=== PATIENT | female | born 1945 | race Caucasian/White ===

== ENCOUNTER → 2017-06-29 14:36 | Outpatient (CLI) | payer MEDICARE, OTHER, SELFPAY ==
[2017-06-29 15:37] LABS: Absolute Lymphocyte Count 2.58 X10^3/ul (0.83-4.51); Absolute Neutrophil Count 2.6 X10^3/uL (2.0-7.7); Basophil# 0.05 X10^3/uL; Basophil% 0.9 % (0-1); Eosinophil# 0.13 X10^3/uL; Eosinophils% 2.2 % (0-5); Hematocrit 41.5 % (37-47); Hemoglobin 13.7 g/dl (12.0-15.0); Lymphocyte # 2.58 X10^3/ul (4.0); Lymphocyte % 44.4 % (19-41); Mean Corpuscular Hgb 30.2 pg (27.0-32.0); Mean Corpuscular Volume 91.4 fL (81-99); Mean Platelet Vol. 11.2 fl (6.2-12.0); Monocyte# 0.49 X10^3/uL; Monocyte% 8.4 % (0-10); Neutrophil # 2.56 X10^3/uL (2.7-7.7); Neutrophil % 44.1 % (47-70); Platelet Count 123 K/mm3 (150-450); RBC Distribution Width CV 14.6 % (11.6-14.6); RBC Distribution Width SD 48.8 fl (35.1-43.9); Red Blood Count 4.54 M/mm3 (4.2-5.4); White Blood Count 5.8 K/mm3 (4.4-11.0)
[2017-06-29 15:43] LABS: POSITIVE COUNT NO; POSITIVE DIFFERENTIAL NO; POSITIVE MORPHOLOGY NO
[2017-06-29 16:07] LABS: Anion Gap 9 (5-15); BUN 11 mg/dL (7-18); BUN/Creat Ratio 15.3 RATIO (10-20); Calcium,Total 8.8 mg/dL (8.5-10.1); Chloride 104 mmol/L (98-107); Creatinine, Serum 0.72 mg/dL (0.55-1.02); EST Glomerular Filtration Rate 85 mL/min (>60); Est Glom Filt Rate - Afr Amer 103 mL/min (>60); Glucose 162 mg/dL (74-106); Potassium 3.6 mmol/L (3.5-5.1); Sodium Level 139 mmol/L (136-145)
== END ==
PROVIDERS: Family Provider Family Medicine; PCP Family Medicine; Visit Provider Family Medicine
DX: D69.6 Thrombocytopenia, unspecified (principal); E11.9 Type 2 diabetes mellitus without complications
CPT/HCPCS: 36415; 80048; 85025

== ENCOUNTER → 2018-05-04 06:38 | Outpatient (CLI) | payer MEDICARE, OTHER, SELFPAY ==
[2017-12-05 13:58] VITALS: BMI 34.4
[2018-05-04 08:03] LABS: ALB/GLOB Ratio 0.8 RATIO (0.9-2.4); AST(SGOT) 66 U/L (15-37); Alanine Aminotransfer ALT/SGPT 60 U/L (13-56); Albumin, Serum 3.1 g/dL (3.2-5.0); Alkaline Phosphatase 175 U/L (45-117); Anion Gap 5 (5-15); BUN 9 mg/dL (7-18); BUN/Creat Ratio 14.7 RATIO (10-20); Bilirubin, Direct 0.23 mg/dL (0.00-0.30); Calcium,Total 8.6 mg/dL (8.5-10.1); Chloride 108 mmol/L (98-107); Cholesterol 146 mg/dL (200); Creatinine, Serum 0.61 mg/dL (0.55-1.02); EST Glomerular Filtration Rate 102 mL/min (>60); Est Glom Filt Rate - Afr Amer 124 mL/min (>60); Globulin 4.1 g/dL (2.2-4.2); Glucose 119 mg/dL (74-106); High Density Lipoprotein 40 mg/dL; Potassium 3.9 mmol/L (3.5-5.1); Protein, Total 7.2 g/dL (6.4-8.2); Sodium Level 142 mmol/L (136-145); T4 Free Direct 0.89 ng/dL (0.76-1.46); Thyroid Stim Hormone (TSH) 3.68 uIU/mL (0.358-3.74); Triglycerides 108 mg/dL; Very Low Density Lipoprotein 22 mg/dL (5-40)
[2018-05-04 08:07] LABS: Absolute Lymphocyte Count 2.21 X10^3/ul (0.83-4.51); Absolute Neutrophil Count 1.8 X10^3/uL (2.0-7.7); Basophil# 0.04 X10^3/uL; Basophil% 0.9 % (0-1); Eosinophil# 0.14 X10^3/uL; Eosinophils% 3.1 % (0-5); Hematocrit 43.9 % (37-47); Hemoglobin 13.9 g/dl (12.0-15.0); Lymphocyte # 2.21 X10^3/ul (4.0); Lymphocyte % 48.3 % (19-41); Mean Corp Hgb Conc 31.7 g/gl (32-36); Mean Corpuscular Hgb 29.6 pg (27.0-32.0); Mean Corpuscular Volume 93.6 fL (81-99); Mean Platelet Vol. 11.9 fl (6.2-12.0); Monocyte# 0.43 X10^3/uL; Monocyte% 9.4 % (0-10); Neutrophil # 1.75 X10^3/uL (2.7-7.7); Neutrophil % 38.1 % (47-70); Platelet Count 94 K/mm3 (150-450); RBC Distribution Width CV 14.6 % (11.6-14.6); RBC Distribution Width SD 48.2 fl (35.1-43.9); Red Blood Count 4.69 M/mm3 (4.2-5.4); White Blood Count 4.6 K/mm3 (4.4-11.0)
[2018-05-04 08:10] LABS: POSITIVE COUNT NO; POSITIVE DIFFERENTIAL NO; POSITIVE MORPHOLOGY NO
== END ==
PROVIDERS: Family Provider Family Medicine; PCP Family Medicine; Referring Provider Internal Medicine Cardiovascular Disease; Visit Provider Internal Medicine Cardiovascular Disease
DX: E78.5 Hyperlipidemia, unspecified (principal); E11.9 Type 2 diabetes mellitus without complications; K76.0 Fatty (change of) liver, not elsewhere classified; D69.6 Thrombocytopenia, unspecified; I48.91 Unspecified atrial fibrillation
CPT/HCPCS: 36415; 80053; 80061; 82248; 84439; 84443; 85025

== ENCOUNTER → 2018-12-04 13:41 | Outpatient (CLI) | payer MEDICARE, OTHER, SELFPAY ==
[2017-12-05 13:58] VITALS: BMI 34.4
[2018-12-04 15:04] LABS: Absolute Lymphocyte Count 2.51 X10^3/uL (0.83-4.51); Absolute Neutrophil Count 2.9 X10^3/uL (2.0-7.7); Basophil# 0.06 X10^3/uL; Basophil% 0.9 % (0-1); Eosinophil# 0.14 X10^3/uL; Eosinophils% 2.2 % (0-5); Hematocrit 40.2 % (37-47); Hemoglobin 12.8 g/dL (12.0-15.0); Lymphocyte # 2.51 X10^3/ul (4.0); Lymphocyte % 39.6 % (19-41); Mean Corp Hgb Conc 31.8 g/dL (32-36); Mean Corpuscular Volume 94.4 fL (81-99); Monocyte# 0.71 X10^3/uL; Monocyte% 11.2 % (0-10); NRBC Flagged by Analyzer 0 % (0-5); Neutrophil % 45.8 % (47-70); Platelet Count 111 K/mm3 (150-450); RBC Distribution Width SD 51.9 fl (35.1-43.9); Red Blood Count 4.26 M/mm3 (4.2-5.4); White Blood Count 6.3 K/mm3 (4.4-11.0)
[2018-12-04 15:36] LABS: ALB/GLOB Ratio 0.8 RATIO (0.9-2.4); AST(SGOT) 50 U/L (15-37); Alanine Aminotransfer ALT/SGPT 41 U/L (13-56); Albumin, Serum 2.9 g/dL (3.2-5.0); Alkaline Phosphatase 160 U/L (45-117); Anion Gap 10 (5-15); BUN 12 mg/dL (7-18); BUN/Creat Ratio 17.2 RATIO (10-20); Calcium,Total 8.4 mg/dL (8.5-10.1); Chloride 110 mmol/L (98-107); EST Glomerular Filtration Rate 88 mL/min (>60); Est Glom Filt Rate - Afr Amer 106 mL/min (>60); GGTP 91 U/L (5-55); Globulin 3.7 g/dL (2.2-4.2); Glucose 114 mg/dL (74-106); Magnesium 1.8 mg/dL (1.6-2.6); Potassium 3.8 mmol/L (3.5-5.1); Protein, Total 6.6 g/dL (6.4-8.2); Sodium Level 144 mmol/L (136-145); Thyroid Stim Hormone (TSH) 1.24 uIU/mL (0.358-3.74)
== END ==
PROVIDERS: PCP Family Medicine; Visit Provider Family Medicine
DX: K76.0 Fatty (change of) liver, not elsewhere classified (principal); I48.91 Unspecified atrial fibrillation; D69.6 Thrombocytopenia, unspecified; E11.9 Type 2 diabetes mellitus without complications
CPT/HCPCS: 36415; 80053; 82977; 83735; 84443; 85025

== ENCOUNTER → 2019-02-15 08:33 | Outpatient (CLI) | payer MEDICARE, OTHER, SELFPAY ==
[2019-01-05 11:29] VITALS: BMI 34.0
[2019-02-15 12:43] LABS: Absolute Neutrophil Count 2.6 X10^3/uL (2.0-7.7); Basophil# 0.03 X10^3/uL; Basophil% 0.7 % (0-1); Eosinophil# 0.12 X10^3/uL; Eosinophils% 2.7 % (0-5); Hematocrit 40.3 % (37-47); Lymphocyte % 26.6 % (19-41); Mean Corp Hgb Conc 32.3 g/dL (32-36); Mean Corpuscular Volume 93.1 fL (81-99); Mean Platelet Vol. 12.7 fl (6.2-12.0); Monocyte# 0.57 X10^3/uL; Monocyte% 12.6 % (0-10); NRBC Flagged by Analyzer 0 % (0-5); Neutrophil # 2.58 X10^3/uL (2.7-7.7); Neutrophil % 57.2 % (47-70); Platelet Count 124 K/mm3 (150-450); RBC Distribution Width CV 15.2 % (11.6-14.6); RBC Distribution Width SD 52.6 fl (35.1-43.9); Red Blood Count 4.33 M/mm3 (4.2-5.4); White Blood Count 4.5 K/mm3 (4.4-11.0)
[2019-02-15 13:05] LABS: BNP,B-Type NATRIURETIC PEPTIDE 91.9 pg/mL (0-100)
[2019-02-15 13:13] LABS: ALB/GLOB Ratio 0.7 RATIO (0.9-2.4); AST(SGOT) 45 U/L (15-37); Alanine Aminotransfer ALT/SGPT 30 U/L (13-56); Albumin, Serum 2.9 g/dL (3.2-5.0); Alkaline Phosphatase 140 U/L (45-117); Anion Gap 6 (5-15); BUN 7 mg/dL (7-18); BUN/Creat Ratio 11.2 RATIO (10-20); Calcium,Total 8.5 mg/dL (8.5-10.1); Chloride 108 mmol/L (98-107); Creatinine, Serum 0.62 mg/dL (0.55-1.02); EST Glomerular Filtration Rate 100 mL/min (>60); Est Glom Filt Rate - Afr Amer 121 mL/min (>60); Globulin 3.9 g/dL (2.2-4.2); Glucose 98 mg/dL (74-106); Potassium 3.6 mmol/L (3.5-5.1); Protein, Total 6.8 g/dL (6.4-8.2); Sodium Level 142 mmol/L (136-145); Thyroid Stim Hormone (TSH) 2.03 uIU/mL (0.358-3.74)
== END ==
PROVIDERS: PCP Family Medicine; Visit Provider Family Medicine
DX: I50.9 Heart failure, unspecified (principal); D69.6 Thrombocytopenia, unspecified
CPT/HCPCS: 36415; 80053; 83880; 84443; 85025

== ENCOUNTER → 2019-03-09 11:44 | Outpatient (CLI) | payer MEDICARE, SELFPAY ==
[2019-01-05 11:29] VITALS: BMI 34.0
[2019-03-09 16:21] LABS: ALB/GLOB Ratio 0.6 RATIO (0.9-2.4); AST(SGOT) 53 U/L (15-37); Alanine Aminotransfer ALT/SGPT 33 U/L (13-56); Albumin, Serum 2.6 g/dL (3.2-5.0); Alkaline Phosphatase 159 U/L (45-117); Anion Gap 2 (5-15); BUN 8 mg/dL (7-18); BUN/Creat Ratio 11.7 RATIO (10-20); Calcium,Total 8.7 mg/dL (8.5-10.1); Chloride 109 mmol/L (98-107); Creatinine, Serum 0.68 mg/dL (0.55-1.02); EST Glomerular Filtration Rate 90 mL/min (>60); Est Glom Filt Rate - Afr Amer 109 mL/min (>60); Globulin 4.2 g/dL (2.2-4.2); Glucose 138 mg/dL (74-106); Potassium 3.3 mmol/L (3.5-5.1); Protein, Total 6.8 g/dL (6.4-8.2); Sodium Level 139 mmol/L (136-145)
== END ==
PROVIDERS: Family Provider Family Medicine; PCP Family Medicine; Visit Provider Family Medicine
DX: R17 Unspecified jaundice (principal)
CPT/HCPCS: 36415; 80053

== ENCOUNTER → 2019-04-03 15:18 | Outpatient (CLI) | payer MEDICARE, SELFPAY ==
[2019-01-05 11:29] VITALS: BMI 34.0
[2019-04-03 17:16] LABS: Absolute Lymphocyte Count 1.28 X10^3/uL (0.83-4.51); Absolute Neutrophil Count 2.3 X10^3/uL (2.0-7.7); Basophil# 0.03 X10^3/uL; Basophil% 0.7 % (0-1); Eosinophils% 2.4 % (0-5); Hematocrit 39.5 % (37-47); Hemoglobin 12.7 g/dL (12.0-15.0); Lymphocyte # 1.28 X10^3/ul (4.0); Lymphocyte % 30.8 % (19-41); Mean Corp Hgb Conc 32.2 g/dL (32-36); Mean Corpuscular Hgb 30.2 pg (27.0-32.0); Mean Corpuscular Volume 93.8 fL (81-99); Monocyte% 9.6 % (0-10); NRBC Flagged by Analyzer 0 % (0-5); Neutrophil # 2.33 X10^3/uL (2.7-7.7); Neutrophil % 56.3 % (47-70); Platelet Count 119 K/mm3 (150-450); RBC Distribution Width CV 15.9 % (11.6-14.6); RBC Distribution Width SD 54.3 fl (35.1-43.9); Red Blood Count 4.21 M/mm3 (4.2-5.4); White Blood Count 4.2 K/mm3 (4.4-11.0)
[2019-04-03 17:47] LABS: ALB/GLOB Ratio 0.6 RATIO (0.9-2.4); AST(SGOT) 56 U/L (15-37); Alanine Aminotransfer ALT/SGPT 33 U/L (13-56); Albumin, Serum 2.4 g/dL (3.2-5.0); Alkaline Phosphatase 148 U/L (45-117); Anion Gap 5 (5-15); BUN 6 mg/dL (7-18); BUN/Creat Ratio 10.1 RATIO (10-20); Bilirubin, Direct 0.37 mg/dL (0.00-0.30); Calcium,Total 8.6 mg/dL (8.5-10.1); Chloride 108 mmol/L (98-107); EST Glomerular Filtration Rate 105 mL/min (>60); Est Glom Filt Rate - Afr Amer 127 mL/min (>60); Globulin 4.3 g/dL (2.2-4.2); Glucose 133 mg/dL (74-106); Potassium 3.2 mmol/L (3.5-5.1); Protein, Total 6.7 g/dL (6.4-8.2); Sodium Level 141 mmol/L (136-145)
[2019-04-04 10:56] LABS: Hemoglobin A1c 5.3 % (4.2-6.3)
== END ==
PROVIDERS: Family Provider Family Medicine; PCP Family Medicine; Visit Provider Family Medicine
DX: E11.9 Type 2 diabetes mellitus without complications (principal); E87.6 Hypokalemia; R17 Unspecified jaundice
CPT/HCPCS: 36415; 80053; 82248; 83036; 85025

== ENCOUNTER → 2019-04-12 13:26 | Outpatient (CLI) | payer MEDICARE, SELFPAY ==
[2019-01-05 11:29] VITALS: BMI 34.0
[2019-04-12 15:42] LABS: Absolute Lymphocyte Count 1.48 X10^3/uL (0.83-4.51); Absolute Neutrophil Count 2.6 X10^3/uL (2.0-7.7); Basophil# 0.05 X10^3/uL; Eosinophil# 0.12 X10^3/uL; Eosinophils% 2.5 % (0-5); Hemoglobin 13.1 g/dL (12.0-15.0); Lymphocyte # 1.48 X10^3/ul (4.0); Lymphocyte % 30.7 % (19-41); Mean Corpuscular Hgb 30.1 pg (27.0-32.0); Mean Corpuscular Volume 94.3 fL (81-99); Mean Platelet Vol. 11.6 fl (6.2-12.0); Monocyte# 0.58 X10^3/uL; NRBC Flagged by Analyzer 0 % (0-5); Neutrophil # 2.59 X10^3/uL (2.7-7.7); Neutrophil % 53.8 % (47-70); Platelet Count 142 K/mm3 (150-450); RBC Distribution Width CV 15.9 % (11.6-14.6); RBC Distribution Width SD 54.6 fl (35.1-43.9); Red Blood Count 4.35 M/mm3 (4.2-5.4); White Blood Count 4.8 K/mm3 (4.4-11.0)
[2019-04-12 16:03] LABS: ALB/GLOB Ratio 0.6 RATIO (0.9-2.4); AST(SGOT) 54 U/L (15-37); Alanine Aminotransfer ALT/SGPT 32 U/L (13-56); Albumin, Serum 2.5 g/dL (3.2-5.0); Alkaline Phosphatase 163 U/L (45-117); Anion Gap 4 (5-15); BUN 6 mg/dL (7-18); BUN/Creat Ratio 9.7 RATIO (10-20); Calcium,Total 8.3 mg/dL (8.5-10.1); Chloride 107 mmol/L (98-107); Creatinine, Serum 0.62 mg/dL (0.55-1.02); EST Glomerular Filtration Rate 101 mL/min (>60); Est Glom Filt Rate - Afr Amer 122 mL/min (>60); Globulin 4.3 g/dL (2.2-4.2); Glucose 93 mg/dL (74-106); Magnesium 1.7 mg/dL (1.6-2.6); Protein, Total 6.8 g/dL (6.4-8.2); Sodium Level 140 mmol/L (136-145); Thyroid Stim Hormone (TSH) 1.41 uIU/mL (0.358-3.74)
[2019-04-12 16:35] LABS: BNP,B-Type NATRIURETIC PEPTIDE 101.3 pg/mL (0-100)
== END ==
PROVIDERS: PCP Family Medicine; Visit Provider Family Medicine
DX: I48.91 Unspecified atrial fibrillation (principal); I50.810 Right heart failure, unspecified; R60.9 Edema, unspecified; D69.6 Thrombocytopenia, unspecified
CPT/HCPCS: 36415; 80053; 83735; 83880; 84443; 85025

== ENCOUNTER → 2019-04-27 08:38 | Outpatient (CLI) | payer MEDICARE, SELFPAY ==
[2019-01-05 11:29] VITALS: BMI 34.0
--- NOTE | 2019-04-27 08:41 | ECHOD_ITS ---
Reason For Study: EDEMA, MURMUR Procedure This was a 2D Doppler, Color Flow transthoracic echocardiogram. Exam performed in department. Left Ventricle Normal LV size. Mild segmental systolic dysfunction (see wall motion). The estimated ejection fraction is 40 %. Septal motion consistent with IVCD. Diastolic function is indeterminate. Posterior-Basal: Hypokinetic. Infero-Basal: Hypokinetic. Basal inferoseptal: Hypokinetic. Basal anteroseptal: Hypokinetic. Mid-Anterior : Hypokinetic. Mid-Posterior: Hypokinetic. Mid-Inferior: Hypokinetic. Mid-inferoseptal : Hypokinetic. Mid-anteroseptal : Hypokinetic. [place] : Hypokinetic. Right Ventricle Normal RV size. Normal systolic function. Atria The left atrium is mildly enlarged. Normal right atrium. No doppler evidence for ASD. Mitral Valve There is no mitral annular calcification. Normal mitral valve. Mild (1+) mitral valve insufficiency. Tricuspid Valve Normal tricuspid valve. Mild tricuspid valve insufficiency. Right ventricular systolic pressure estimated to be 27 mmHg. Aortic Valve Trisinus/trileaflet aortic valve. Mild focal aortic valve calcification. Pulmonic Valve The pulmonic valve is not well visualized. Trivial pulmonic valve insufficiency. Great Vessels Normal sized aortic root. Pericardium/Pleural No pericardial effusion. Echo lucency compatible with a pleural effusion. MMode/2D Measurements & Calculations LVIDd: 4.1 cm IVSd: 1.0 cm Ao root diam: 3.5 cm LVIDs: 2.7 cm LVPWd: 0.98 cm RVDd: 3.4 cm FS: 34.1 % LAV(MOD-bp): 64.4 ml LVAd ap4: 38.0 cm2 SV(MOD-sp4): 64.3 ml LAV(MOD-bp) Indexed: 34.1 ml/m2 EDV(MOD-sp4): 124.9 ml LAV(MOD-sp2): 57.6 ml EDV(sp4-el): 135.2 ml LAV(MOD-sp4): 63.5 ml LVAs ap4: 23.3 cm2 ESV(MOD-sp4): 60.6 ml ESV(sp4-el): 60.9 ml EF(MOD-sp4): 51.5 % EF(sp4-el): 55.0 % SV(sp4-el): 74.3 ml LA A4 area: 21.5 cm2 LA dimension(2D): 4.9 cm RA A4 area: 16.2 cm2 Time Measurements MV dec time: 0.17 sec Doppler Measurements & Calculations MV E max glen: 52.4 cm/sec Lat Peak E' Glen: 7.9 cm/sec Med Peak E' Glen: 5.6 cm/sec MV A max glen: 69.9 cm/sec E/E' lat: 6.6 E/E' med: 9.4 MV E/A: 0.75 Ao V2 max: 167.7 cm/sec LV V1 max: 127.0 cm/sec PA V2 max: 90.8 cm/sec Ao max P.3 mmHg LV V1 max P.5 mmHg TR max glen: 242.1 cm/sec TR max P.5 mmHg Interpretation Summary Mild segmental systolic dysfunction (see wall motion). The estimated ejection fraction is 40 %. Septal motion consistent with IVCD. The left atrium is mildly enlarged. Mild (1+) mitral valve insufficiency. Mild tricuspid valve insufficiency. Mild focal aortic valve calcification. Trivial pulmonic valve insufficiency. Echo lucency compatible with a pleural effusion. Right ventricular systolic pressure estimated to be 27 mmHg. Diastolic function is indeterminate. Ordering Physician: Po Maldonado Referring Physician: Po Maldonado Performed By: Roxy Calvert, CHRISTINE, RVT
== END ==
PROVIDERS: PCP Family Medicine; Referring Provider Family Medicine; Visit Provider Family Medicine
DX: R01.1 Cardiac murmur, unspecified (principal); I48.91 Unspecified atrial fibrillation; I50.9 Heart failure, unspecified
CPT/HCPCS: 93306

== ENCOUNTER → 2019-04-30 14:37 | Outpatient (CLI) | payer MEDICARE, SELFPAY ==
[2019-01-05 11:29] VITALS: BMI 34.0
[2019-04-30 17:23] LABS: Absolute Lymphocyte Count 1.56 X10^3/uL (0.83-4.51); Absolute Neutrophil Count 2.9 X10^3/uL (2.0-7.7); Basophil# 0.04 X10^3/uL; Basophil% 0.8 % (0-1); Eosinophil# 0.14 X10^3/uL; Eosinophils% 2.7 % (0-5); Hematocrit 42.2 % (37-47); Hemoglobin 13.4 g/dL (12.0-15.0); Lymphocyte # 1.56 X10^3/ul (4.0); Lymphocyte % 30.3 % (19-41); Mean Corp Hgb Conc 31.8 g/dL (32-36); Mean Corpuscular Hgb 29.8 pg (27.0-32.0); Mean Corpuscular Volume 93.8 fL (81-99); Mean Platelet Vol. 11.7 fl (6.2-12.0); Monocyte# 0.47 X10^3/uL; Monocyte% 9.1 % (0-10); NRBC Flagged by Analyzer 0 % (0-5); Neutrophil # 2.93 X10^3/uL (2.7-7.7); Neutrophil % 56.9 % (47-70); Platelet Count 162 K/mm3 (150-450); RBC Distribution Width CV 15.9 % (11.6-14.6); RBC Distribution Width SD 55.1 fl (35.1-43.9); White Blood Count 5.2 K/mm3 (4.4-11.0)
[2019-04-30 17:35] LABS: ALB/GLOB Ratio 0.5 RATIO (0.9-2.4); AST(SGOT) 100 U/L (15-37); Alanine Aminotransfer ALT/SGPT 61 U/L (13-56); Albumin, Serum 2.5 g/dL (3.2-5.0); Alkaline Phosphatase 268 U/L (45-117); Anion Gap 4 (5-15); BUN 6 mg/dL (7-18); BUN/Creat Ratio 9.1 RATIO (10-20); Calcium,Total 8.6 mg/dL (8.5-10.1); Chloride 105 mmol/L (98-107); Creatinine, Serum 0.66 mg/dL (0.55-1.02); EST Glomerular Filtration Rate 94 mL/min (>60); Est Glom Filt Rate - Afr Amer 113 mL/min (>60); Globulin 4.8 g/dL (2.2-4.2); Glucose 89 mg/dL (74-106); Potassium 3.1 mmol/L (3.5-5.1); Protein, Total 7.3 g/dL (6.4-8.2); Sodium Level 140 mmol/L (136-145)
== END ==
PROVIDERS: PCP Family Medicine; Visit Provider Family Medicine
DX: I50.810 Right heart failure, unspecified (principal); D69.6 Thrombocytopenia, unspecified; K76.0 Fatty (change of) liver, not elsewhere classified
CPT/HCPCS: 36415; 80053; 85025

== ENCOUNTER → 2019-07-17 09:10 | Outpatient (CLI) | payer MEDICARE, SELFPAY ==
[2019-01-05 11:29] VITALS: BMI 34.0
[2019-07-17 12:48] LABS: ALB/GLOB Ratio 0.5 RATIO (0.9-2.4); AST(SGOT) 60 U/L (15-37); Alanine Aminotransfer ALT/SGPT 31 U/L (13-56); Albumin, Serum 2.1 g/dL (3.2-5.0); Alkaline Phosphatase 146 U/L (45-117); Anion Gap 7 (5-15); BUN 8 mg/dL (7-18); BUN/Creat Ratio 11.1 RATIO (10-20); Calcium,Total 8.3 mg/dL (8.5-10.1); Chloride 107 mmol/L (98-107); Creatinine, Serum 0.72 mg/dL (0.55-1.02); EST Glomerular Filtration Rate 85 mL/min (>60); Est Glom Filt Rate - Afr Amer 102 mL/min (>60); Globulin 4.2 g/dL (2.2-4.2); Glucose 88 mg/dL (74-106); Potassium 3.2 mmol/L (3.5-5.1); Protein, Total 6.3 g/dL (6.4-8.2); Sodium Level 142 mmol/L (136-145)
[2019-07-17 12:53] LABS: BNP,B-Type NATRIURETIC PEPTIDE 190.1 pg/mL (0-100)
== END ==
PROVIDERS: PCP Family Medicine; Visit Provider Family Medicine
DX: I50.9 Heart failure, unspecified (principal); E87.6 Hypokalemia; J90 Pleural effusion, not elsewhere classified
CPT/HCPCS: 36415; 80053; 83880

== ENCOUNTER → 2019-08-08 08:33 | Outpatient (CLI) | payer MEDICARE, SELFPAY ==
[2019-07-18 13:38] VITALS: BMI 34.0
[2019-08-08 12:32] LABS: Absolute Lymphocyte Count 1.21 X10^3/uL (0.83-4.51); Absolute Neutrophil Count 1.5 X10^3/uL (2.0-7.7); Basophil# 0.04 X10^3/uL; Basophil% 1.2 % (0-1); Eosinophil# 0.09 X10^3/uL; Eosinophils% 2.8 % (0-5); Hematocrit 40.5 % (37-47); Lymphocyte # 1.21 X10^3/ul (4.0); Lymphocyte % 37.7 % (19-41); Mean Corp Hgb Conc 32.1 g/dL (32-36); Mean Corpuscular Hgb 31.2 pg (27.0-32.0); Mean Corpuscular Volume 97.1 fL (81-99); Mean Platelet Vol. 12.5 fl (6.2-12.0); Monocyte# 0.32 X10^3/uL; NRBC Flagged by Analyzer 0 % (0-5); Neutrophil # 1.54 X10^3/uL (2.7-7.7); Platelet Count 101 K/mm3 (150-450); RBC Distribution Width CV 15.1 % (11.6-14.6); RBC Distribution Width SD 54.1 fl (35.1-43.9); Red Blood Count 4.17 M/mm3 (4.2-5.4); White Blood Count 3.2 K/mm3 (4.4-11.0)
[2019-08-08 12:52] LABS: Anion Gap 6 (5-15); BUN 9 mg/dL (7-18); BUN/Creat Ratio 13.4 RATIO (10-20); Calcium,Total 8.5 mg/dL (8.5-10.1); Chloride 108 mmol/L (98-107); Creatinine, Serum 0.67 mg/dL (0.55-1.02); EST Glomerular Filtration Rate 91 mL/min (>60); Est Glom Filt Rate - Afr Amer 111 mL/min (>60); Glucose 82 mg/dL (74-106); Magnesium 2.1 mg/dL (1.6-2.6); Potassium 3.5 mmol/L (3.5-5.1); Sodium Level 141 mmol/L (136-145)
[2019-08-08 13:01] LABS: BNP,B-Type NATRIURETIC PEPTIDE 106.4 pg/mL (0-100)
== END ==
PROVIDERS: PCP Family Medicine; Visit Provider Family Medicine
DX: E87.6 Hypokalemia (principal); I50.9 Heart failure, unspecified; E11.9 Type 2 diabetes mellitus without complications
CPT/HCPCS: 36415; 80048; 83036; 83735; 83880; 85025

== ENCOUNTER → 2020-01-09 10:36 | Outpatient (CLI) | payer MEDICARE, SELFPAY ==
[2019-07-18 13:38] VITALS: BMI 34.0
[2020-01-09 12:14] LABS: Absolute Neutrophil Count 2.3 X10^3/uL (2.0-7.7); Basophil# 0.04 X10^3/uL; Eosinophil# 0.09 X10^3/uL; Eosinophils% 2.3 % (0-5); Hematocrit 33.8 % (37-47); Lymphocyte % 28.4 % (19-41); Mean Corp Hgb Conc 32.5 g/dL (32-36); Mean Corpuscular Volume 98.3 fL (81-99); Mean Platelet Vol. 11.9 fl (6.2-12.0); Monocyte# 0.35 X10^3/uL; NRBC Flagged by Analyzer 0 % (0-5); Neutrophil # 2.29 X10^3/uL (2.7-7.7); Platelet Count 111 K/mm3 (150-450); RBC Distribution Width CV 15.1 % (11.6-14.6); RBC Distribution Width SD 54.6 fl (35.1-43.9); Red Blood Count 3.44 M/mm3 (4.2-5.4); White Blood Count 3.9 K/mm3 (4.4-11.0)
[2020-01-09 12:34] LABS: International Normalized Ratio 2.6; Prothrombin Time (Protime)PT. 27.6 SECONDS (11.7-14.9)
[2020-01-09 12:35] LABS: Partial Thromboplast Time 37.9 Seconds (24.1-36.2)
[2020-01-09 13:10] LABS: ALB/GLOB Ratio 0.5 RATIO (0.9-2.4); AST(SGOT) 50 U/L (15-37); Alanine Aminotransfer ALT/SGPT 24 U/L (13-56); Alkaline Phosphatase 123 U/L (45-117); Anion Gap 8 (5-15); BUN 24 mg/dL (7-18); BUN/Creat Ratio 16.9 RATIO (10-20); Calcium,Total 8.5 mg/dL (8.5-10.1); Chloride 106 mmol/L (98-107); Creatinine, Serum 1.42 mg/dL (0.55-1.02); EST Glomerular Filtration Rate 39 mL/min (>60); Est Glom Filt Rate - Afr Amer 47 mL/min (>60); Glucose 147 mg/dL (74-106); Potassium 3.3 mmol/L (3.5-5.1); Sodium Level 140 mmol/L (136-145)
[2020-01-09 14:44] LABS: BNP,B-Type NATRIURETIC PEPTIDE 188.5 pg/mL (0-100)
== END ==
PROVIDERS: PCP Family Medicine; Visit Provider Family Medicine
DX: K74.60 Unspecified cirrhosis of liver (principal); K76.0 Fatty (change of) liver, not elsewhere classified; D69.6 Thrombocytopenia, unspecified; I50.9 Heart failure, unspecified
CPT/HCPCS: 36415; 80053; 83880; 85025; 85610; 85730

== ENCOUNTER → 2020-01-17 07:57 | Outpatient (CLI) | payer MEDICARE, SELFPAY ==
[2019-07-18 13:38] VITALS: BMI 34.0
--- NOTE | 2020-01-17 07:59 | US_ITS ---
STUDY: ABDOMINAL ULTRASOUND REASON FOR EXAM: Female, 74 years old. Cirrhosis, jaundice, ascites TECHNIQUE: Transabdominal ultrasound was performed with real-time and static gomez scale imaging. TECHNICAL QUALITY: Limited. Examination limited due to the patient?s condition. COMPARISON: None. FINDINGS: Liver: The liver is of decreased size and measures 9.3 cm. There is increased echogenicity consistent with fatty infiltration. The bile ducts are within normal limits. There is hepatic color flow. The direction of portal flow is hepatopetal. There is no demonstrated mass lesion. Portal vein measurement: Gallbladder: Normal distended gallbladder. The gallbladder wall is thickened and measures 6.2 mm. There is a negative sonographic Molina''s sign. There is no pericholecystic fluid. There is a solitary echogenic gallstone within the gallbladder. And measures 7 mm. Common Bile Duct (C.B.D.): The common bile duct measures 2.8 mm. Pancreas: Normal size of the head, body and tail of the pancreas. There is normal echogenicity of the pancreas. There is no demonstrated pancreatic mass or cyst. Spleen: Normal size of the spleen. The spleen measures 10.6 cm x 5.3 cm x 5.8 cm. Right Kidney: Normal size of the right kidney. The right kidney measures 11.1 cm x 4.7 cm x 4.3 cm. Normal renal cortex. The right cortex measures 1.7 cm. There is no demonstrated renal mass or cyst. There is no right hydronephrosis. Left Kidney: There is atrophy of the left kidney. The left kidney measures 8.7 cm x 4.7 cm x 4.3 cm. Normal renal cortex. The left cortex measures 1.5 cm. There is no demonstrated renal mass or cyst. There is no left hydronephrosis. Diffuse ascites. US/Abdomen Complete IMPRESSION: Decreased size of the liver. Diffuse fatty infiltration. Solitary gallstone measuring 7 mm. Thickened gallbladder wall. Electronically Signed: Bhanu Richard, at 8:52 EST , Service support ,
== END ==
PROVIDERS: PCP Family Medicine; Referring Provider Family Medicine; Visit Provider Family Medicine
DX: K74.60 Unspecified cirrhosis of liver (principal); R18.8 Other ascites
CPT/HCPCS: 76700

== ENCOUNTER 2020-02-04 15:43 | Outpatient (RCR) | payer MEDICARE, SELFPAY ==
[2019-07-18 13:38] VITALS: BMI 34.0
[2020-02-04 18:13] LABS: ALB/GLOB Ratio 0.5 RATIO (0.9-2.4); AST(SGOT) 64 U/L (15-37); Alanine Aminotransfer ALT/SGPT 31 U/L (13-56); Albumin, Serum 2.2 g/dL (3.2-5.0); Alkaline Phosphatase 143 U/L (45-117); Anion Gap 5 (5-15); BUN 26 mg/dL (7-18); BUN/Creat Ratio 19.7 RATIO (10-20); Calcium,Total 8.5 mg/dL (8.5-10.1); Chloride 106 mmol/L (98-107); Creatinine, Serum 1.32 mg/dL (0.55-1.02); EST Glomerular Filtration Rate 42 mL/min (>60); Est Glom Filt Rate - Afr Amer 51 mL/min (>60); Globulin 4.6 g/dL (2.2-4.2); Glucose 90 mg/dL (74-106); Magnesium 2.4 mg/dL (1.6-2.6); Potassium 3.2 mmol/L (3.5-5.1); Protein, Total 6.8 g/dL (6.4-8.2); Sodium Level 140 mmol/L (136-145)
[2020-02-04 18:18] LABS: International Normalized Ratio 2.1; Partial Thromboplast Time 35.5 Seconds (24.1-36.2)
[2020-02-06 06:09] LABS: AFP, Tumor Marker 5.1 ng/mL (0.0-8.3)
== END 2020-02-04 18:00 | disposition home or self-care (01) ==
LOC: MTLAB 15:43
PROVIDERS: PCP Family Medicine; Referring Provider Internal Medicine Gastroenterology; Visit Provider Internal Medicine Gastroenterology
DX: K74.60 Unspecified cirrhosis of liver (principal)
CPT/HCPCS: 36415; 80053; 82105; 83735; 85610; 85730

== ENCOUNTER → 2020-02-08 14:09 | Outpatient (CLI) | payer MEDICARE, SELFPAY ==
[2019-07-18 13:38] VITALS: BMI 34.0
--- NOTE | 2020-02-08 14:11 | US_ITS ---
PROCEDURE: Ultrasound guided paracentesis. DATE OF EXAMINATION: 02/08/2020. INDICATION: Female, 74 years old. Ascites. PHYSICIAN: Bhanu Richard M.D. TECHNIQUE: The risks, benefits, and alternatives to the procedure were explained to the patient. The specific risks of bleeding, infection, and damage to bowel were detailed and accepted. Witnessed informed consent was obtained. The abdomen was ultrasonographically surveyed. An appropriate pocket of fluid was identified at the right lower quadrant. The skin were cleaned and prepped in the usual sterile fashion. Using ultrasound guidance, the peritoneal cavity was accessed with a 5-[place] Citizen paracentesis needle/catheter system. The trocar was removed. A total of 8050 ml of yoshi-colored fluid were removed from the peritoneal cavity. The catheter was removed and a sterile dressing was applied. The procedure was well tolerated. US/Paracentesis with US IMPRESSION: Ultrasound guided paracentesis. Electronically Signed: Bhanu Richard, at 8:04 EST , Service support ,
[2020-02-08 14:49] VITALS: BP 102/71; BP 93/55; BP 96/57; BP 97/37; BP 99/55; PULSE 67; PULSE 68; PULSE 69; PULSE 71; RESP 16; RESP 18; TEMP 36.6; O2SAT 100; O2SAT 97; O2SAT 99
[2020-02-08 16:33] LABS: Albumin, Serum 2.1 g/dL (3.2-5.0)
[2020-02-08 16:48] LABS: LDH,Body Fluid 46 Units/l (Not Establ.)
[2020-02-08 18:53] LABS: Body Fluid Mononuclear WBC % 93.8 %; Body Fluid Polynuclear WBC # 0.002 10^3/uL; Body Fluid Polynuclear WBC % 6.2 %; Body Fluid Total Cells Counted 0.043 10^3/ul; White Blood Count/Body Fluid 0.032 10^3/uL
[2020-02-08 20:20] LABS: Auto B Fluid Analyzer BKGD Ct COUNTS W/IN LIMITS (W/IN LIMITS)
[2020-02-08 20:27] LABS: Red Cell Count/Body Fluid 1257 /mm3
[2020-02-08 20:28] LABS: Source- Body Fluid OTHER
[2020-02-08 20:29] LABS: Appearance/Body Fluid CLOUDY; Color/Body Fluid YELLOW
[2020-02-08 22:53] LABS: Lymphocytes 48 %; Macrophages 40 %; Mesothelial Cells 4 %; Monocytes 4 %; Neutrophil (Segs) 4 %
[2020-02-10 15:03] LABS: Amylase Body Fluid 39 U/L (.)
[2020-02-11 13:17] LABS: Pathologist Comment/Body Fluid Reviewed
== END ==
PROVIDERS: PCP Family Medicine; Referring Provider Internal Medicine Gastroenterology; Visit Provider Internal Medicine Gastroenterology
DX: R18.8 Other ascites (principal)
CPT/HCPCS: 49083; 82040; 82150; 83615; 89050

== ENCOUNTER → 2020-02-12 12:24 | Outpatient (CLI) | payer MEDICARE, SELFPAY ==
[2019-07-18 13:38] VITALS: BMI 34.0
--- NOTE | 2020-02-12 12:25 | US_ITS ---
PROCEDURE: Ultrasound guided paracentesis. DATE OF EXAMINATION: . INDICATION: Female, 74 years old. Ascites. PHYSICIAN: Bhanu Richard M.D. TECHNIQUE: The risks, benefits, and alternatives to the procedure were explained to the patient. The specific risks of bleeding, infection, and damage to bowel were detailed and accepted. Witnessed informed consent was obtained. The abdomen was ultrasonographically surveyed. An appropriate pocket of fluid was identified at the left lower quadrant. The skin were cleaned and prepped in the usual sterile fashion. Using ultrasound guidance, the peritoneal cavity was accessed with a 5-Danish paracentesis needle/catheter system. The trocar was removed. A total of 8000 ml of yoshi-colored fluid were removed from the peritoneal cavity. The catheter was removed and a sterile dressing was applied. The procedure was well tolerated. US/Paracentesis with US IMPRESSION: Ultrasound guided paracentesis. Electronically Signed: Bhanu Richard, at 14:07 EST , Service support ,
[2020-02-12 14:17] VITALS: BP 89/47; BP 89/54; BP 91/48; BP 93/49; BP 93/52; PULSE 59; PULSE 60; PULSE 61; PULSE 62; RESP 16; TEMP 36.4; O2SAT 100; O2SAT 99
--- NOTE | 2020-02-12 14:45 | CASEMGMT ---
RN Care Coordination Assessment: This RN CM met patient [id number] and her Matthew in the radiology bay. Pt is alert and amenable to assessment questions by this RN CM. The RN CM role was explained. Demographics verified. Past medical history was obtained from the patient and from a review of the patients medical record: Liver cirrhosis w/ascites, Paroxysmal Afib, Nonischemic cardiomyopathy, HTN, HLD, and DM type II currently off medications with last HgbA1C 5.5% Providers: PCP: Dr. Mari Maldonado GI: Dr. Cuevas Electrologist: Dr. See Hospitalizations: None at [facility] Last outpatient cardiology visit: 07/18/2019 Insurance: [facility] Medications: Apixaban (Eliquis) 5mg PO BID (Currently on hold since 02/04/2020 for paracentesis) ASA 81 mg PO Daily Carvedilol 3.125mg PO BID Ezetimibe (Zetia) 10mg PO Daily Furosemide 20mg PO Daily KCL 10mEq PO BID Sacubitril 24mg/Valsartan 26mg PO BID (Entresto) Diet: Na restriction (pt states taking less than 1000mg/day). Pt and pt's relay that they are checking Na content in foods and have eliminated adding any additional salt to their food. Discussed need to also increase protein. Pt discussed need to eat more fish and pt's explained that he recently made her a steak on the grill without seasoning/salt and chicken. Fluid restriction: Pt was unaware of fluid restriction until this date when Dr. Cuevas stopped during her procedure and they clarified the need for a 1.5L fluid restriction. Pt states she has been drinking a lot of water and states that now that she is aware of the need to restrict this she will. Pt relays that she needs to do what she has to do and get used to it. Current Plan of Care: Pt underwent a paracentesis on 02/07 (8L removed), today 02/11 (8L removed), and is to return on 02/14 to remove additional fluid still noted to be present during today's procedure. Ascitic fluid removed on 02/07 sent for albumin, cell count with diff and serum albumin (low at 2.1). Pt's current order is for large volume paracentesis PRN. Social Determinants of Health: Health Literacy: Moderate Finances: Not discussed during today's visit. No specific concerns expressed by pt or her . Housing: Pt lives with her in a one story home with 2 steps to enter from the garage with grab bars present. Transportation: Pt drives occasionally but her is the primary screw driver operator and providers her transportation to appointments and also drives her around to get her out of the house. Food: Pt's prepares all meals and obtains all groceries. Pt's explained that the pt has not been in a store since February when COVID first began. Self-care: Pt states she is independent with ADLs although she had noted increasing difficulty with reaching her lower extremities with the increased volume of ascites. Pt also reports to have had edema of her lower extremities all of which has improved since Tuesday. Pt's assists her as needed with ADLs. Social: Pt has two daughters. One is local (Samantha Marcum listed in demographics) and the other lives in [place], [place] (Jade Veliz). Pt states they have not been able to see Jade recently due to distance and COVID precautions. DME: Pt has a front wheeled walker with sliders on the back (has but has not needed to use), cane (has but has not needed to use), and grab bars in the shower. SNF/[facility]: Pt has not needed either of these services in the past. Concerns: Pt and her questioned medications that affect her BP and the fact that it was low during her procedure. Also with questions about the Eliquis going forward. This YAN ROTH called Dr. See's office to collaborate on pt's care. This RN IRA spoke with YAN Aviles and informed her of the paracentesis procedures and plan for additional procedure Tuesday. Eliquis to remain on hold as long as pt receiving the paracentesis and will need to decide after Tuesday's procedure if additional procedures will be planned. If yes, Eliquis to remain on hold, if no, will need to check on resuming Eliquis in 1 or 2 days post procedure. Discussed pt's BP's noted during today's procedure. Reviewed pt's medication list. Traci to discuss with Dr. See and will call pt if there are any changes that should be made. This RN CM call pt and her at home (both got on the phone) and relayed the above information to them. They did not have any further questions. Will continue to monitor for tank terminal gauger plan and coordinate needs as identified. Donnell Vazquez RN CM
== END ==
PROVIDERS: PCP Family Medicine; Referring Provider Internal Medicine Gastroenterology; Visit Provider Internal Medicine Gastroenterology
DX: R18.8 Other ascites (principal)
CPT/HCPCS: 49083

== ENCOUNTER → 2020-02-15 09:39 | Outpatient (CLI) | payer MEDICARE, SELFPAY ==
[2019-07-18 13:38] VITALS: BMI 34.0
--- NOTE | 2020-02-15 09:43 | US_ITS ---
PROCEDURE: Ultrasound guided paracentesis. DATE OF EXAMINATION: 02/15/2020. INDICATION: Female, 74 years old. Ascites. PHYSICIAN: Bhanu Richard M.D. TECHNIQUE: The risks, benefits, and alternatives to the procedure were explained to the patient. The specific risks of bleeding, infection, and damage to bowel were detailed and accepted. Witnessed informed consent was obtained. The abdomen was ultrasonographically surveyed. An appropriate pocket of fluid was identified at the left lower quadrant. The skin were cleaned and prepped in the usual sterile fashion. Using ultrasound guidance, the peritoneal cavity was accessed with a 5-Uzbek paracentesis needle/catheter system. The trocar was removed. A total of 8050 ml of yoshi-colored fluid were removed from the peritoneal cavity. The catheter was removed and a sterile dressing was applied. The procedure was well tolerated. US/Paracentesis with US IMPRESSION: Ultrasound guided paracentesis. Electronically Signed: Bhanu Richard, at 11:28 EST , Service support ,
[2020-02-15 11:15] VITALS: BP 74/44; PULSE 77; RESP 16; O2SAT 100; BMI 32.9
[2020-02-15] MEDS: Albumin Human 25% (100 mL) 25 GM/100 ML BAG IV (11:30)
[2020-02-15 11:37] VITALS: BP 75/40; BP 77/51; BP 80/38; BP 80/45; BP 87/54; BP 88/50; PULSE 60; PULSE 77; PULSE 79; PULSE 80; RESP 18; TEMP 36.6; O2SAT 100; O2SAT 99
--- NOTE | 2020-02-15 14:12 | CASEMGMT ---
RN Care Coordination Follow-up: This RN CM met [id number] with patient and her in the infusion bay during albumin infusion. Pt relayed how the swelling in her feet, legs and arms has substantially continued to decrease. Pt relays how this has allowed her to move easier and faster in her home. Discussed the followin. Follow-up with Dr. Cuevas: Pt and state they are unaware of the follow-up plan and do not currently have a follow-up appointment. a. This RN CM contacted Dr. Cuevas's office and per his nurse Rama, pt does not have a follow-up appointment scheduled but should obtain one. This RN CM called pt and relayed need to schedule appointment. Pt expressed understanding. 2. Diet: Pt and spouse provided examples of how they are eliminating Na from their diet and that they are eating protein and pt drinks Ensure. Pt is only drinking 5 cups of fluids each day and they count any type of beverage including the Ensure, juices, etc. 3. Medications: Pt did not receive a call back from Dr. See's office so no changes were made to her medications. Pt remains off Eliquis. Instructed pt that since she has additional paracenteses planned next Tuesday the and the following week to stay off of her Eliquis. YAN Aviles at Dr. See's office notified of pt's plan for continued paracentesis and that Eliquis remains on hold. 4. Finances: Pt and pt's state that Dr. Cuevas is not in network with their insurance. They state they have discussed this with their insurance company and Dr. Cuevas's office and his office is working with [facility] to become in-network. Pt and pt's clearly state that they trust Dr. Cuevas and do not want to go out of town to seek care from an in-network provider. They understand they will have increased out of pocket costs and are willing and able to pay these. This RN CM reviewed pt's BP's as documented by the manager technical support's. Discussed also with YAN Cartwright who states pt was asymptomatic, without c/o dizziness. This RN CM contacted Dr. Cuevas's office and spoke with Rama regarding the plan of care and notified her of the pt's BP's with subsequent albumin infusion post paracentesis. Rama states she will inform Dr. Cuevas. Regarding the plan of care, Rama checked with Dr. Cuevas and the instruction was that after the next paracentesis we will be able to tell by the ultrasound if the paracenteses can be reduced in frequency and can try weekly. This YAN ROTH contacted YAN Aviles at Dr. See's office and updated her on today's paracentesis and BP's. She is going to notify Dr. See of these but states that he stated previously that he wants her to stay on the carvedilol and the Entresto. Will continue to monitor and provide assistance to patient as needs identified. Donnell Vazquez RN CM
== END ==
LOC: US 09:42 → MEDOUTP 11:08
PROVIDERS: PCP Family Medicine; Referring Provider Internal Medicine Gastroenterology; Visit Provider Internal Medicine Gastroenterology
DX: R18.8 Other ascites (principal)
CPT/HCPCS: 96365; 96366; 49083; P9047

== ENCOUNTER → 2020-02-20 13:17 | Outpatient (CLI) | payer MEDICARE, SELFPAY ==
[2019-07-18 13:38] VITALS: BMI 34.0
[2020-02-15 11:15] VITALS: BMI 32.9
--- NOTE | 2020-02-20 13:19 | US_ITS ---
PROCEDURE: Ultrasound guided paracentesis. DATE OF EXAMINATION: 02/20/2020. INDICATION: Female, 74 years old. Ascites. PHYSICIAN: Bhanu Richard M.D. TECHNIQUE: The risks, benefits, and alternatives to the procedure were explained to the patient. The specific risks of bleeding, infection, and damage to bowel were detailed and accepted. Witnessed informed consent was obtained. The abdomen was ultrasonographically surveyed. An appropriate pocket of fluid was identified at the left lower quadrant. The skin were cleaned and prepped in the usual sterile fashion. Using ultrasound guidance, the peritoneal cavity was accessed with a 5-Slovenian paracentesis needle/catheter system. The trocar was removed. A total of 8000 ml of yoshi-colored fluid were removed from the peritoneal cavity. The catheter was removed and a sterile dressing was applied. The procedure was well tolerated. US/Paracentesis with US IMPRESSION: Ultrasound guided paracentesis. Electronically Signed: Bhanu Richard, at 14:58 EST , Service support ,
[2020-02-20 13:44] VITALS: BP 84/39; BP 89/42; BP 91/49; PULSE 54; RESP 18; TEMP 36.5; O2SAT 100
[2020-02-20] MEDS: Albumin Human 25% (100 mL) 25 GM/100 ML BAG IV (14:50)
[2020-02-20 14:54] VITALS: BP 80/43; PULSE 72; RESP 16; TEMP 36.6; O2SAT 100; BMI 28.5
[2020-02-20 16:31] VITALS: BP 74/41; PULSE 52; RESP 16; O2SAT 100
== END ==
LOC: US 14:28 → MEDOUTP 14:37
PROVIDERS: PCP Family Medicine; Referring Provider Internal Medicine Gastroenterology; Visit Provider Internal Medicine Gastroenterology
DX: R18.8 Other ascites (principal)
CPT/HCPCS: 96365; 96366; 49083; P9047; A4216

== ENCOUNTER → 2020-02-26 12:20 | Outpatient (CLI) | payer MEDICARE, SELFPAY ==
[2019-07-18 13:38] VITALS: BMI 34.0
[2020-02-20 14:54] VITALS: BMI 28.5
--- NOTE | 2020-02-26 12:23 | US_ITS ---
PROCEDURE: ULTRASOUND GUIDED PARACENTESIS CLINICAL HISTORY: Female, 74 years old. ASCITES CONSENT: The risks, benefits and alternatives to the procedure were explained to the patient, and the patient agreed to the procedure and signed the consent. SEDATION: Local Anesthesia STERILE BARRIER TECHNIQUE: The following sterile barrier precautions were used during the procedure: hand hygiene; use of 2% chlorhexidine aseptic; use of a cap, mask, sterile gown, sterile gloves, sterile full body drape, and a large sterile sheet. PROCEDURE/TECHNIQUE: The risks, benefits, and alternatives to the procedure were explained to patient, and the patient agreed to the procedure and signed a consent form for the procedure. TECHNIQUE: Under the ultrasound guidance using sterile technique and after infiltration of the skin and subcutaneous soft tissues with 10 mL of lidocaine 1% a 5 Swedish drainage catheter is introduced in the lower part of the abdomen. 7550 mL of fluid were removed sample sent to lab for evaluation. The patient tolerated the procedure there was no immediate complication. FINDINGS: FLUID PRE-PROCEDURE There is posterior enhancement. The findings appear anechoic. There is no loculation. FLUID POST-PROCEDURE Amount of fluid drained: 7550 ml. US/Paracentesis with US IMPRESSION: Successful ultrasound-guided paracentesis. Electronically Signed: Kiley Carlson, at 14:56 EST Tel , Service support ,
[2020-02-26 12:47] VITALS: BP 85/44; BP 87/45; BP 91/33; BP 94/37; BP 94/63; PULSE 66; PULSE 67; PULSE 69; PULSE 70; PULSE 71; RESP 16; RESP 18; TEMP 36.6; O2SAT 100; O2SAT 96; O2SAT 99
== END ==
PROVIDERS: PCP Family Medicine; Referring Provider Internal Medicine Gastroenterology; Visit Provider Internal Medicine Gastroenterology
DX: R18.8 Other ascites (principal)
CPT/HCPCS: 49083

== ENCOUNTER 2020-03-03 13:28 | Outpatient (RCR) | payer MEDICARE, SELFPAY ==
[2020-02-20 14:54] VITALS: BMI 28.5
[2020-03-03 17:49] LABS: Anion Gap 5 (5-15); BUN 59 mg/dL (7-18); BUN/Creat Ratio 28.6 RATIO (10-20); Calcium,Total 8.8 mg/dL (8.5-10.1); Chloride 105 mmol/L (98-107); Creatinine, Serum 2.06 mg/dL (0.55-1.02); EST Glomerular Filtration Rate 25 mL/min (>60); Est Glom Filt Rate - Afr Amer 30 mL/min (>60); Glucose 95 mg/dL (74-106); Magnesium 2.7 mg/dL (1.6-2.6); Potassium 6.3 mmol/L (3.5-5.1); Sodium Level 132 mmol/L (136-145)
== END 2020-03-03 18:00 | disposition home or self-care (01) ==
LOC: MTLAB 13:28
PROVIDERS: PCP Family Medicine; Referring Provider Internal Medicine Gastroenterology; Visit Provider Internal Medicine Gastroenterology
DX: K74.60 Unspecified cirrhosis of liver (principal)
CPT/HCPCS: 36415; 80048; 83735

== ENCOUNTER 2020-03-04 12:07 | Observation (INO) | payer MEDICARE, SELFPAY ==
[2020-02-20 14:54] VITALS: BMI 28.5
[2020-03-04] VITALS (13 sets, daily range): BP systolic 64–91; BP diastolic 37–57; PULSE 60–88; RESP 14–20; TEMP 36.4–37; O2SAT 92–100; BMI 21.2; BMI 21.3; BMI 21.5
--- NOTE | 2020-03-04 12:29 | EKG12_ITS ---
Test Reason : K Blood Pressure : / mmHG Vent. Rate : 056 BPM Atrial Rate : 056 BPM P-R Int : 376 ms QRS Dur : 154 ms QT Int : 456 ms P-R-T Axes : 055 -58 082 degrees QTc Int : 440 ms Sinus bradycardia with 1st degree A-V block Left axis deviation Left bundle branch block Abnormal ECG Confirmed by HERMILO WHITE, NIKITA ([id number]), newspaper copy editor CHELY PITTS ([id number]) on 03/07/2020 8:36:45 AM Referred By: ANDREA Confirmed By:NIKITA AKHTAR MD
[2020-03-04 12:55] LABS: Hematocrit 34.4 % (37-47); Hemoglobin 11.4 g/dL (12.0-15.0); Mean Corp Hgb Conc 33.1 g/dL (32-36); Mean Corpuscular Hgb 32.4 pg (27.0-32.0); Mean Corpuscular Volume 97.7 fL (81-99); Mean Platelet Vol. 11.4 fl (6.2-12.0); Platelet Count 134 K/mm3 (150-450); RBC Distribution Width CV 15.3 % (11.6-14.6); RBC Distribution Width SD 54.9 fl (35.1-43.9); Red Blood Count 3.52 M/mm3 (4.2-5.4); White Blood Count 5.4 K/mm3 (4.4-11.0)
[2020-03-04] MEDS: 0.9% Normal Saline 1,000 ML 150 ML IV (13:12)
--- NOTE | 2020-03-04 13:13 | NURSING ---
CHEMISTRIES HEMOLIZED
[2020-03-04 13:40] LABS: Anion Gap 5 (5-15); BUN 52 mg/dL (7-18); BUN/Creat Ratio 32.3 RATIO (10-20); Chloride 110 mmol/L (98-107); Creatinine, Serum 1.61 mg/dL (0.55-1.02); EST Glomerular Filtration Rate 33 mL/min (>60); Est Glom Filt Rate - Afr Amer 40 mL/min (>60); Estimated Creatinine Clearance 28.42 ml/min; Glucose 95 mg/dL (74-106); Potassium 5.9 mmol/L (3.5-5.1); Sodium Level 137 mmol/L (136-145)
[2020-03-04] MEDS: Albuterol 2.5 MG/3 ML VIAL.NEB. INHALATION (14:13)
--- NOTE | 2020-03-04 14:55 | HP.PCM_ITS ---
Problem List (1) Hyperkalemia Status: Acute (2) Ascites Status: Chronic Qualifiers: Ascites type: other type Qualified Code(s): R18.8 - Other ascites Comment: Dr. Cuevas is doing paracentesis on 02/06/20 (3) Non-alcoholic cirrhosis Status: Chronic (4) Essential hypertension Status: Chronic (5) LBBB (left bundle branch block) Status: Chronic (6) Paroxysmal atrial flutter Status: Chronic (7) Paroxysmal atrial fibrillation Status: Chronic (8) Hyperlipidemia Status: Chronic Qualifiers: (9) Type 2 diabetes mellitus without complication Status: Chronic Qualifiers: History of Present Illness Date of Admission: 03/04/20 Chief Complaint: abnormal labs The patient is a 74 year old F patient was having a routine lab work done and showed a potassium 6.1. Patient was directed to the emergency room. In the emergency room, patient's potassium was noted to be 5.9. Patient received a battery of medications to reverse her hyperkalemia, including: Albuterol, calcium gluconate, insulin and D50, sodium bicarbonate and sodium polystyrene. Patient states that she has been taking furosemide, spironolactone and potassium. She was recent told to stop her Entresto. [] Past Medical History Past Medical History (Chronic Problems): Chronic Problems (Last Updated 02/05/20 @ 13:46 by Traci Gomez) Ascites (Chronic) Dr. Cuevas is doing paracentesis on 02/06/20 Non-alcoholic cirrhosis (Chronic) Essential hypertension (Chronic) LBBB (left bundle branch block) (Chronic) Paroxysmal atrial flutter (Chronic) Paroxysmal atrial fibrillation (Chronic) Hyperlipidemia (Chronic) Type 2 diabetes mellitus without complication (Chronic) Medical History: Medical History (Last Reviewed 03/04/20 @ 14:[address] Roderick De Los Santos, DO) Ascites (Acute) R18.8 Dr. Cuevas is doing paracentesis on 02/06/20 Non-alcoholic cirrhosis (Chronic) K74.60 Essential hypertension (Chronic) I10 LBBB (left bundle branch block) (Chronic) I44.7 Paroxysmal atrial flutter (Chronic) I48.92 Paroxysmal atrial fibrillation (Chronic) I48.0 Hyperlipidemia (Chronic) E78.5 Type 2 diabetes mellitus without complication (Chronic) E11.9 Fatty liver K76.0 Steatohepatitis, non-alcoholic K75.81 Allergies Luwzcft-Noc-Mqf Reductase Inhibitor Allergy (Intermediate, Verified 03/04/20 12:10) elevated liver enzymes Sulfa (Sulfonamide Antibiotics) Adverse Reaction (Intermediate, Verified 03/04/20 14:48) Nausea Home Medications: Ambulatory Orders Medication Instructions Recorded carvedilol 3.125 mg tablet 3.125 mg PO BID #60 tab 07/19/19 apixaban 5 mg tablet 5 mg PO BID #180 tab 12/17/19 Aspirin E.C. [Ecotrin] 81 mg PO DAILY@0800 03/04/20 Ezetimibe [Zetia] 10 mg PO DINNER 03/04/20 Surgical History: Surgical History (Last Reviewed 03/04/20 @ 14:[address] Roderick De Los Santos DO) History of lumpectomy of left breast Z98.890 History of lumpectomy of left breast Z98.890 History of tonsillectomy Z90.89 History of tonsillectomy Z90.89 Smoking Status: Never smoker Tobacco Use: Non-smoker - *Family History Maternal Family History: Family History (Last Reviewed 03/04/20 @ 14:[address] Roderick De Los Santos DO) Mother CVA (cerebral vascular accident) Atrial fibrillation Father Cancer Brother CAD (coronary artery disease) Pacemaker Review of Systems Constitutional: Denies: Anorexia, Night Sweats Eyes: Denies: Blurred vision, Double vision HEENT: Denies: Head Aches, Sinus Congestion, Sinus Drainage Cardiovascular: Denies: Chest Pain, Palpitations Respiratory: Denies: Cough, Shortness of breath at rest, Sputum production Gastrointestinal: Reports: - - Abdominal distention due to ascites. Denies: Abdominal Pain, Nausea, Vomiting Genitourinary: Denies: Dysuria Musculoskeletal: Denies: Joint Pain, Joint Tenderness Skin: Denies: Rash, Wounds Neurological: Denies: Numbness, Tingling, Focal weakness Psychiatric: Denies: Anxiety, Depression Hematologic/ Lymphatic: Denies: Easy Bruising, Easy Bleeding, Hx of blood clot Comment: Chronically low blood pressure. Patient states her blood pressure normally runs in the 80s. VTE Information - Inpt Only VTE Present on Admission: No VTE Mechan Device Prophylaxis: None VTE Pharm Prophylaxis ordered?: No Reason prophylaxis not ordered:: Treatment Not Indicated - Physical Exam Vitals/I&O's: Vital Signs Temp Pulse Resp BP Pulse Ox 36.4 C L 79 16 75/44 L 92 03/04/20 12:08 03/04/20 14:14 03/04/20 14:14 03/04/20 12:08 03/04/20 12:08 Oxygen Delivery Method Room Air Weight: 58.06 kg Body Mass Index (BMI) 21.2 General: Alert, Cooperative, No apparent distress HEENT: Atraumatic, Normocephalic Oral: Moist Mucosa, No Gingival or Mucosal Lesions/ Ulcerations Neck: No Nodes, Thyroid Normal Size and Texture Lungs: Clear to auscultation, Normal air movement, No rhonchi, No wheeze, No rales Cardiovascular: Regular rate, Regular Rhythm, Normal S1, Normal S2, No murmurs Abdomen: Bowel Sounds Present, Soft, Non Tender, Non-Distended, No Hepato- splenomegaly Extremities: No edema, No Calf Tenderness Skin: No rashes, No breakdown Musculoskeletal: No Tenderness to Palpation of Joints or Extremities, Cachexia, Muscle Wasting Psych/Mental Status: Normal Affect, Appropriate Laboratory Results 03/04/20 12:50: WBC 5.4, RBC 3.52 L, Hgb 11.4 L, Hct 34.4 L, MCV 97.7, MCH 32.4 H, MCHC 33.1, RDW Std Deviation 54.9 H, RDW Coeff of Bhavesh 15.3 H, Plt Count 134 L , MPV 11.4 03/04/20 12:50: Sodium Cancelled, Potassium Cancelled, Chloride Cancelled, Carbon Dioxide Cancelled, Anion Gap Cancelled, BUN Cancelled, Creatinine Cancelled, Estim Creat Clear Calc Cancelled, Est GFR (MDRD) Af Amer Cancelled, Est GFR (MDRD) Non-Af Cancelled, BUN/Creatinine Ratio Cancelled, Glucose C ancelled, Calcium Cancelled 03/04/20 13:15: Sodium 137, Potassium 5.9 H, Chloride 110 H, Carbon Dioxide 22.0, Anion Gap 5, BUN 52 H, Creatinine 1.61 H, Estim Creat Clear Calc 28.42, Est GFR (MDRD) Af Amer 40 L, Est GFR (MDRD) Non-Af 33 L, BUN/Creatinine Ratio 32.3 H, Glucose 95, Calcium 8.0 L Current Medications Sodium Chloride () 1,000 mls @ 150 mls/hr IV .[id number] [facility] Last Admin: 03/04/20 13:12 Dose: 150 mls/hr Documented by: Assessment/Plan All Active Problems (Last Updated 02/05/20 @ 13:46 by Traci Gomez) Hyperkalemia (Acute) 1. Hyperkalemia: Likely iatrogenic from potassium, spironolactone and Entresto. Hold all those medications at this time. Likely patient will continue to hold all these medications upon discharge. Patient could likely resume spironolactone at a later point if her blood pressure remained stable and she is having recurrent ascites. Would not recommend resuming oral potassium as she is already on a potassium sparing diuretic. Recommend following up with her tuck pointer helper to see about resuming Entresto but with her chronically low blood pressure would advise continuing to hold that. 2. Cirrhosis: likely d/t OSULLIVAN. 3. Afib: continue carvedilol, apixaban 4. VTE prophylaxis: already anticoagulated. 5. ACP: d/w pt, DNRCCA. 6. Disposition: if K comes down well, anticipate DC 03/05/2020 OBSV E&M: 00146 Initial observation care L2
[2020-03-04] MEDS: Calcium Gluconate 1 GM/10 ML Vial IV (15:11)
[2020-03-04] MEDS: Dextrose 50%-Water 25 GM/50 ML DISP.SYRIN IV (15:13)
[2020-03-04] MEDS: Sodium Bicarbonate 8.4% 50 ML Syringe 50 MEQ IV (15:13)
[2020-03-04] MEDS: Insulin Lispro 5 UNIT in Syringe 0 ML 3 UNIT IV (15:13)
[2020-03-04] MEDS: Sodium Polystyrene Sulfonate 15 GM/60 ML UDC 30 GM PO (15:14)
[2020-03-04 16:58] LABS: Anion Gap 6 (5-15); BUN 50 mg/dL (7-18); BUN/Creat Ratio 32.3 RATIO (10-20); Calcium,Total 8.8 mg/dL (8.5-10.1); Chloride 109 mmol/L (98-107); Creatinine, Serum 1.55 mg/dL (0.55-1.02); EST Glomerular Filtration Rate 35 mL/min (>60); Est Glom Filt Rate - Afr Amer 42 mL/min (>60); Estimated Creatinine Clearance 28.33 ml/min; Glucose 78 mg/dL (74-106); Potassium 5.1 mmol/L (3.5-5.1); Sodium Level 139 mmol/L (136-145)
[2020-03-04] MEDS: Carvedilol 3.125 MG TABLET PO (18:35)
[2020-03-04] MEDS: Ezetimibe 10 MG Tablet PO (18:35)
[2020-03-04] MEDS: APIXABAN 5 MG TABLET PO (21:44)
[2020-03-05] VITALS (12 sets, daily range): BP systolic 68–86; BP diastolic 34–53; PULSE 79–98; RESP 15–18; TEMP 36.6–37.1; O2SAT 93–98
[2020-03-05] MEDS: 0.9% Normal Saline 1,000 ML 75 ML IV (01:51)
[2020-03-05 05:09] LABS: Anion Gap 6 (5-15); BUN 44 mg/dL (7-18); BUN/Creat Ratio 35.2 RATIO (10-20); Calcium,Total 7.9 mg/dL (8.5-10.1); Chloride 111 mmol/L (98-107); Creatinine, Serum 1.25 mg/dL (0.55-1.02); EST Glomerular Filtration Rate 45 mL/min (>60); Est Glom Filt Rate - Afr Amer 54 mL/min (>60); Estimated Creatinine Clearance 35.13 ml/min; Glucose 75 mg/dL (74-106); Potassium 5.1 mmol/L (3.5-5.1); Sodium Level 138 mmol/L (136-145)
[2020-03-05] MEDS: Aspirin E.C. 81 MG Tablet PO (09:27)
[2020-03-05] MEDS: APIXABAN 5 MG TABLET PO (09:27)
--- NOTE | 2020-03-05 11:06 | CASEMGMT ---
This RN CM to room to discuss discharge plan with pt at this time. Pt states she would like a WW at discharge and would like it faxed to [facility] at this time so that it can be delivered prior to discharge. Pt states no further concerns/needs at this time. Pt/ decline need for any further therapy at this time. Script/facesheet faxed to [facility] at this time and call to Jamee at this time to notify of order and discharge at this time, voices understanding. SStaten YAN ROTH
[2020-03-05] MEDS: Albumin Human 25% (100 mL) 25 GM/100 ML BAG IV (12:03)
--- NOTE | 2020-03-05 15:02 | DS.PCM_ITS ---
Discharge Date and Diagnosis - Problem List Patient Problems: Active and Suspected Problems (Last Reviewed 03/04/20 @ 14:[address] Roderick De Los Santos DO) Hyperkalemia (Acute) Date of Admission: 03/04/20 Date of Discharge: 03/05/20 - Primary Discharge Diagnosis Acute Problems: Active Problems (Last Reviewed 03/04/20 @ 14:[address] Roderick De Los Santos DO) Hyperkalemia (Acute) - Secondary Discharge Diagnosis Chronic Problems: Chronic Problems (Last Reviewed 03/04/20 @ 14:[address] Roderick De Los Santos DO) Ascites (Chronic) Dr. Cuevas is doing paracentesis on 02/06/20 Non-alcoholic cirrhosis (Chronic) Essential hypertension (Chronic) LBBB (left bundle branch block) (Chronic) Paroxysmal atrial flutter (Chronic) Paroxysmal atrial fibrillation (Chronic) Hyperlipidemia (Chronic) Type 2 diabetes mellitus without complication (Chronic) Hospital Course and Treatment Operations: None Procedures: None Summary of Care Provided: The patient is a 74 year old F with a past medical history of cirrhosis with ascites and paroxysmal A. fib as well as hyperlipidemia and type 2 diabetes mellitus. She was admitted through the ED on 03/04/2020 on account of elevated potassium. Routine blood work. She states her PCPs office called her and told her that her potassium was 6.1 so she was sent to the ED. In the ED, potassium was 5.9. She received potassium depleting cocktail and was admitted to manage for high pair kalemia. She had been taking furosemide, spironolactone and potassium at home. He had recently been told to stop Entresto although. Patient blood pressure was also noted to be in the 70s systolic and she was hydrated with IV fluids. Patient had paracentesis done a few weeks ago with removal of about 7.5 L of fluid. She did say she received albumin afterwards. Review of records from 2019 showed that even then, patient's blood pressure was in the 90s systolic. Patient remained totally stable and orthostatics were negative. She was able to ambulate without difficulty and had no dizziness. Low blood pressure in patients with advanced liver disease and ascites is not uncommon and I feel that this is what is pertaining with this patient as she had no symptoms whatsoever of hypotension. Patient counseled that she would need to stop all diuretics including furosemide and spironolactone. She is also stopped. Potassium supplementation. She is also to stop taking her Entresto and is follow-up with her embedded case manager and PCP to determine if and when this medication should be started. Note, patient was given 1 dose of IV albumin 25 g x 1. Potassium level decreased to 5.1. Patient remained stable and was discharged home on 03/05/2020. Patient was insistent on being discharged home as she felt very well and says she felt she would do better at home and her regular environment and with resting. She is to follow-up with her primary care doctor, intelligence analyst and embedded case manager. Of note, her carvedilol was also discontinued due to low blood pressure. Patient seen and examined prior to discharge. She had no complaints and felt well. Review systems otherwise negative. Labs and vitals reviewed. Medication reviewed and reconciled. O/E: Vital Signs Temp Pulse Resp BP Pulse Ox 98.0 F 86 16 79/46 L 97 03/05/20 14:03/05/20 14:03/05/20 14:03/05/20 14:03/05/20 14:00 [] General: Alert, Cooperative, No apparent distress HEENT: Atraumatic, Normocephalic Oral: Moist Mucosa, No Gingival or Mucosal Lesions/ Ulcerations Neck: No Nodes, Thyroid Normal Size and Texture Lungs: Clear to auscultation, Normal air movement, No rhonchi, No wheeze, No rales Cardiovascular: Regular rate, Regular Rhythm, Normal S1, Normal S2, No murmurs Abdomen: Bowel Sounds Present, Soft, Non Tender, Non-Distended, No Hepato- splenomegaly Extremities: No edema, No Calf Tenderness Skin: No rashes, No breakdown Musculoskeletal: No Tenderness to Palpation of Joints or Extremities, Cachexia, Muscle Wasting Psych/Mental Status: Normal Affect, Appropriate Patient Discharged home. Patient to have follow-up BMP within 1 week to follow- up on potassium levels. Patient Problems: Active and Suspected Problems (Last Reviewed 03/04/20 @ 14:[address] Roderick De Los Santos, DO) Hyperkalemia (Acute) - Physical Exam Vitals/I&O's: Vital Signs Temp Pulse Resp BP Pulse Ox 98.0 F 86 16 79/46 L 97 03/05/20 14:03/05/20 14:00 03/05/20 14:00 03/05/20 14:00 03/05/20 14:00 Oxygen Delivery Method Room Air Weight: 129 lb 8 oz Body Mass Index (BMI) 21.5 Orthostatic Vital Signs Start: 03/05/20 13:15 Freq: q24h Status: Active Protocol: Activity Type Activity Date Activity User E-Sign Co-Sign Detail Recorded Client Recorded Date Recorded By Document 03/05/20 13:15 [id number] 03/05/20 13:19 [id number] 03/05/20 13:15 Orthostatic Vitals Standing -Blood Pressure (90/60-120/80 mm Hg) 68/34 L -Extremity Use Right Arm -Pulse Rate (60-100 beats/min) 98 Sitting -Blood Pressure (90/60-120/80 mm Hg) 72/36 L -Extremity Use Right Arm -Pulse Rate (60-100 beats/min) 90 Lying -Blood Pressure (90/60-120/80 mm Hg) 72/48 L -Extremity Use Right Arm -Pulse Rate (60-100 beats/min) 88 Intake and Output for Last 24 Hours 03/03/20 03/04/20 03/05/20 23:59 23:59 23:59 Intake Total 1020.05 / 1140.05 1725 / 1725 Output Total 300 / 300 400 / 400 Balance 720.05 / 840.05 1325 / 1325 Laboratory Results 03/04/20 16:35: Sodium 139, Potassium 5.1, Chloride 109 H, Carbon Dioxide 24.0, Anion Gap 6, BUN 50 H, Creatinine 1.55 H, Estim Creat Clear Calc 28.33, Est GFR (MDRD) Af Amer 42 L, Est GFR (MDRD) Non-Af 35 L, BUN/Creatinine Ratio 32.3 H, Glucose 78, Calcium 8.8 03/05/20 04:34: Sodium 138, Potassium 5.1, Chloride 111 H, Carbon Dioxide 21.0, Anion Gap 6, BUN 44 H, Creatinine 1.25 H, Estim Creat Clear Calc 35.13, Est GFR (MDRD) Af Amer 54 L, Est GFR (MDRD) Non-Af 45 L, BUN/Creatinine Ratio 35.2 H, Glucose 75, Calcium 7.9 L Current Medications Apixaban (Apixaban 5 Mg Tablet) 5 mg PO BID [facility] Last Admin: 03/05/20 09:27 Dose: 5 mg Documented by: Aspirin (Aspirin E.C. 81 Mg Tablet) 81 mg PO DAILY@0800 [facility] Last Admin: 03/05/20 09:27 Dose: 81 mg Documented by: Carvedilol ([facility] 3.125 Mg Tablet) [facility] Last Admin: 03/05/20 09:27 Dose: Not Given Documented by: Ezetimibe (Ezetimibe 10 Mg Tablet) 10 mg PO DINNER [facility] Last Admin: 03/04/20 18:35 Dose: 10 mg Documented by: Sodium Chloride () 1,000 mls @ 75 mls/hr IV .[id number] [facility] Last Infusion: 03/05/20 14:01 Dose: 75 mls/hr Documented by: Ondansetron HCl (Ondansetron 4 Mg/2 Ml Vial) 4 mg IV Q8H PRN PRN PRN Reason: NAUSEA/VOMITING Oxycodone HCl (Oxycodone 5 Mg Tablet) 5 mg PO Q4H PRN PRN PRN Reason: Pain Score 6-10 Sodium Chloride (0.9% Saline Lock 10 Ml Syringe) 10 - 40 ml IV UD PRN PRN Reason: SALINE FLUSH Discharge Diet: Low fat/ Low Cholesterol Discharge Activity: Return to Normal Activity Weight Bearing Status: Weight bearing as tolerated Call your doctor if you observe: Shortness of breath, Dizziness, Fainting spells, Swelling in the ankles, Increased palpitations (irregular heartbeat) Home Medications: Medications to take at Discharge apixaban 5 mg tablet 5 mg PO BID #180 tab 12/17/19 Aspirin E.C. [Ecotrin] 81 mg PO DAILY@0800 03/04/20 Ezetimibe [Zetia] 10 mg PO DINNER 03/04/20 Primary Care Physician: Po Maldonado MD [Primary Care Provider] - Please follow up with your Primary Care Physician in: one week Please Follow Up With: Yong See MD When: 2-3 weeks Please Follow Up With: Александр Cuevas MD When: 1-2 weeks Patient Instructions: ED Hyperkalemia, ED Ascites Disposition: Home Minutes spent on discharge:: 45 Patient Condition:: Stable Medical Necessity - Tobacco Use Smoking Status: Never smoker Tobacco Use: Non-smoker Meaningful Use Info Meaningful Use Diagnoses (Choose all that apply): None applicable OBSV E&M: 23763 Observation care discharge
--- NOTE | 2020-03-05 15:14 | CHAPLAIN ---
Type of Pastoral Visit _x__ Initial Visit ___ Follow-up Visit ___ On-call Visit ___ General Patient Visit ___ Spiritual Assessment ___ Family Conference ___ Bereavement ___ Rapid Response ___ Code Blue ___ Other (describe below) Pastoral Care Referral From _x__ Patient ___ Family ___ Nurse ___ Physician ___ Zipper Trimmer ___ Emotional Support Teacher ___ Other (describe below) Sacrament/Intervention _x__ Active listening ___ Anointing ___ Gnosticist ___ Bereavement ___ Communion _x__ Mimi exploration ___ _x__ Life review _x__ Prayer ___ Reconciliation ___ Sacrament of Sick _x__ Supportive presence ___ Wedding ___ Other (describe below) Pastoral Comments
--- NOTE | 2020-03-05 15:52 | CASEMGMT ---
This RN CM to room with BRADY form at this time, explanation done-pt voices understanding, and signs BRADY form at this time. Pt has copy of IP vs OBS booklet at bedside. Original to chart and copy of BRADY form to pt at this time. Pt states no further questions/concerns/needs at this time. Pt's WW was delivered before lunchtime for discharge. SStaten RN CM
--- NOTE | 2020-03-05 17:13 | DCINST_ITS ---
- Discharge Diagnoses Current Active Problems: Current Active and Chronic Problems (Last Reviewed 03/04/20 @ 14:[address] Roderick De Los Santos, DO) Hyperkalemia (Acute) Ascites (Chronic) Dr. Cuevas is doing paracentesis on 02/06/20 Non-alcoholic cirrhosis (Chronic) Essential hypertension (Chronic) LBBB (left bundle branch block) (Chronic) Paroxysmal atrial flutter (Chronic) Paroxysmal atrial fibrillation (Chronic) Hyperlipidemia (Chronic) Type 2 diabetes mellitus without complication (Chronic) You will use the following diet at home:: No restrictions Discharge Activity: Return to Normal Activity Weight Bearing Status: Weight bearing as tolerated Call your doctor if you observe: Shortness of breath, Dizziness, Fainting spells, Swelling in the ankles, Increased palpitations (irregular heartbeat) Instructions: ED Ascites, ED Hyperkalemia Allergies/Adverse Reactions: Allergies Nkbybof-Thx-Dic Reductase Inhibitor Allergy (Intermediate, Verified 03/04/20 12:10) elevated liver enzymes Sulfa (Sulfonamide Antibiotics) Adverse Reaction (Intermediate, Verified 03/04/20 14:48) Nausea Medications to take at Discharge apixaban 5 mg tablet 5 mg PO BID #180 tab 12/17/19 Aspirin E.C. [Ecotrin] 81 mg PO DAILY@0800 03/04/20 Ezetimibe [Zetia] 10 mg PO DINNER 03/04/20 Primary Care Physician: Po Maldonado MD [Primary Care Provider] - Please follow up with your Primary Care Physician in: one week Test Results: Test results from this visit will be discussed in further detail at your follow- up appointment, if applicable. Please Follow Up With: Yong See MD When: 2-3 weeks Please Follow Up With: Александр Cuevas MD When: 1-2 weeks Proposed Discharge Date: 03/05/20
--- NOTE | 2020-03-06 16:15 | CASEMGMT ---
YAN ROTH Care Coordination Follow-up: Call placed to pt at home after Observation admission for Hyperkalemia. Pt states she remains off of the Entresto, and has stopped taking Coreg, Lasix, and Spironolactone as instructed d/t hypotension. She states she contacted Dr Maldonado's office today and has an appt scheduled for 03/14, with labs to be drawn to re-check K+ on 03/12. She also placed a call to Dr See's office today and spoke w/Jade to inquire about when/if she should resume any of her medications, but states she has not heard back from them yet. She is awaiting a return call. She also has an appt with Dr See for 03/31. She also placed a call to Dr Cuevas's office today. She states Dr Cuevas was not in but she spoke w/a nurse there and has an appt scheduled w/Dr Cuevas for 03/31. Pt reports she continues to weigh herself daily and records it, and that she has lost 3 # since Tuesday. She denies having any SOB and denies having any swelling to her feet/ankles. YAN ROTH discussed with pt the importance of continue to weigh herself daily, and to report weight gain or any edema to her PCP and tar chaser if these occur. She voices understanding. She has been monitoring her BP and the last couple of BP's today have been in the 90's/50's. Pt states she does not have any concerns/needs at this time. She has an appt for a paracentesis scheduled for Friday 03/10 @ [facility], but states she does not know if she is going to need it, as she does not feel she is filling up with fluid, and also felt that things went off balance after having so much removed previously. Pt stated how much she appreciated the staff at [facility] and the care she received, stating, You couldn't have found a more wonderful group of people to take care of me. All the aides, the RN's, Maria M in ER, Dr Cruz, the admitting RN, the U/S nurses, Dalila Cartwright, and Dr Carrillo in radiology were all so great. YAN ROTH thanked pt for the positive feedback. Pt denies having any concerns/needs/questions. RN CM advised her to contact her physicians or CM if any needs/concerns arise. She voices understanding and appreciation for the f/u call. Lonny SRINIVASAN RN CM
--- NOTE | 2020-03-14 16:50 | ED.VISSUMM ---
- ER Visit Summary Date of Service: 03/14/20 Chief Complaint: [High potassium] History of Present Illness: The patient is a 74 F [presents the emergency department complaint of high potassium. Patient had blood work done yesterday and was called today and told that her potassium was high. Patient had been on potassium and stopped it a month ago. She denies any chest pain or shortness of breath. Patient also states that her blood pressures been running low lately and has been in the 80s over 60s. Patient denies recent illness. No COVID-19 exposures. Patient has been urinating normally. Does have history of high cholesterol.] Physical Examination: [HEENT-PERRLA, EOMI. Cranial nerves II through XII grossly intact. TMs clear. Mucous membranes moist. No adenopathy. Cardiovascular-regular rate and rhythm without murmur or ectopy Lungs-clear to auscultation, chest wall stable without crepitus or subcu emphysema Abdomen-normoactive bowel sounds, soft, nontender, no rebound or rigidity, no peritoneal signs. Extremities-intact ?4, normal range of motion, normal pulses, atraumatic] Test Results: [EKG obtained arrival shows sinus rhythm with a ventricular rate of 56 bpm. CBC with differential showed a white count 5.4, hemoglobin 11.4, hematocrit 34, platelets 134. Sodium 137, potassium 5.9, chloride 110, glucose 95, BUN 52 and creatinine 1.61. Potassium on the prior day was 6.3 and her creatinine had been 2.06.] Emergency Department Course and Treatment: [IV line established. Patient was started on calcium gluconate as well as sodium bicarb. Patient was given insulin and glucose. Patient given Kayexalate.] Treatment Plan: [Admit] Disposition: [Admit] Impression: [Hyperkalemia Hypotension Renal insufficiency History of cirrhosis of the liver] This note was generated with [employer] dictation software. It may contain incorrect words, spelling, and punctuation that were not noted in review of the chart prior to signing ED Disposition - Plan for ED Patient: Disposition: Acute Care [facility]
== END 2020-03-05 17:50 | disposition home or self-care (01) ==
LOC: ED 13:12 → PCU 15:00
PROVIDERS: Emergency Provider Emergency Medicine; PCP Family Medicine; Visit Provider Student in an Organized Health Care Education/Training Program
DX: E87.5 Hyperkalemia (principal); E78.5 Hyperlipidemia, unspecified; E11.9 Type 2 diabetes mellitus without complications; I48.0 Paroxysmal atrial fibrillation; R18.8 Other ascites; I10 Essential (primary) hypertension; K74.60 Unspecified cirrhosis of liver; I44.7 Left bundle-branch block, unspecified; I44.0 Atrioventricular block, first degree; I48.92 Unspecified atrial flutter; Z79.899 Other long term (current) drug therapy; Z79.01 Long term (current) use of anticoagulants; Z79.82 Long term (current) use of aspirin
CPT/HCPCS: 36415; 80048; 85027; 93005; 94640; 96361; 96365; 96366; 96367; 96375; 99218; 99284; J7030; J7040; P9047; G0378; J0610

== ENCOUNTER → 2020-03-10 09:46 | Outpatient (CLI) | payer MEDICARE, SELFPAY ==
[2020-02-20 14:54] VITALS: BMI 28.5
[2020-03-04 16:15] VITALS: BMI 21.5
--- NOTE | 2020-03-10 09:52 | US_ITS ---
STUDY: ABDOMINAL ULTRASOUND - RIGHT UPPER QUADRANT REASON FOR VISIT: Female, 74 years old ascites TECHNIQUE: Ultrasound evaluation of the right upper quadrant was performed with real-time and static gomez-scale imaging. TECHNICAL QUALITY: Adequate. COMPARISON: None. FINDINGS: Ascites survey. Small amount of ascites. The patient was in atrial fibrillation and was transported to the emergency room. US/Abdomen Limited IMPRESSION: Small amount of ascites. The patient was in atrial fibrillation and subsequently transported to the emergency room. Electronically Signed: Bhanu Richard, at 10:52 EST , Service support ,
--- NOTE | 2020-03-10 10:58 | NURSING ---
YAN Brock talking with patient upon arrival for paracentesis. Pt's VS taken during initial u/s to evaluate ascites. Initial VS at 1008 HR 113 Resp 24 B/P 112/44 SPO2 95% RA. HR fluctuated between 110s and 160s, YAN Brock brought in it admin. Pt's rhythm shows AFib RVR. At 1015 B/P 119/53 HR 130s-150s Resp 29 SPO2 96% RA. YAN Brock calls ED to give report that patient is going to be brought over and paracentesis is not going to be completed. Pt tearful, YAN Brock provides ongoing support and comfort to the patient. Pt's Vineet is brought from the waiting room and updated on the patient's situation. Pt is taken to ED, immediately attached to a heart monitor and triaged.
== END ==
PROVIDERS: PCP Family Medicine; Referring Provider Internal Medicine Gastroenterology; Visit Provider Internal Medicine Gastroenterology
DX: R18.8 Other ascites (principal)
CPT/HCPCS: 76705

== ENCOUNTER 2020-03-10 10:24 | Inpatient (IN) | payer MEDICARE, SELFPAY ==
[2020-03-04 16:15] VITALS: BMI 21.5
[2020-03-10] VITALS (31 sets, daily range): BP systolic 61–110; BP diastolic 31–87; PULSE 69–145; RESP 16–32; TEMP 36.6–36.7; O2SAT 90–98; BMI 22.1; BMI 22.2
--- NOTE | 2020-03-10 10:33 | EKG12_ITS ---
Test Reason : SOB Blood Pressure : / mmHG Vent. Rate : 157 BPM Atrial Rate : 153 BPM P-R Int : 000 ms QRS Dur : 138 ms QT Int : 356 ms P-R-T Axes : 000 -38 140 degrees QTc Int : 575 ms Atrial fibrillation with rapid ventricular response with premature ventricular or aberrantly conducte d complexes Left axis deviation Left bundle branch block Abnormal ECG Confirmed by STEFANO WHITE, KITA ([id number]), scientific editor CHELY PITTS ([id number]) on 03/12/2020 8:13:43 AM Referred By: JOANNA Confirmed By:KITA AGARWAL MD
[2020-03-10 10:42] LABS: Absolute Lymphocyte Count 1.54 X10^3/uL (0.83-4.51); Absolute Neutrophil Count 4.7 X10^3/uL (2.0-7.7); Basophil# 0.05 X10^3/uL; Basophil% 0.7 % (0-1); Eosinophil# 0.14 X10^3/uL; Eosinophils% 1.9 % (0-5); Hematocrit 35.5 % (37-47); Lymphocyte # 1.54 X10^3/ul (4.0); Lymphocyte % 21.1 % (19-41); Mean Corp Hgb Conc 33.8 g/dL (32-36); Mean Corpuscular Hgb 32.9 pg (27.0-32.0); Mean Corpuscular Volume 97.3 fL (81-99); Mean Platelet Vol. 11.1 fl (6.2-12.0); Monocyte# 0.88 X10^3/uL; NRBC Flagged by Analyzer 0 % (0-5); Neutrophil # 4.67 X10^3/uL (2.7-7.7); Neutrophil % 63.9 % (47-70); Platelet Count 148 K/mm3 (150-450); RBC Distribution Width CV 15.8 % (11.6-14.6); RBC Distribution Width SD 55.9 fl (35.1-43.9); Red Blood Count 3.65 M/mm3 (4.2-5.4); White Blood Count 7.3 K/mm3 (4.4-11.0)
[2020-03-10] MEDS: Metoprolol Tartrate 5 MG/5 ML Vial IV ×2 (10:43→10:49)
--- NOTE | 2020-03-10 10:46 | RAD_ITS ---
STUDY: X-RAY CHEST REASON FOR EXAM: Female, 74 years old. AFIB, SOB TECHNIQUE: Single AP portable view of the chest. COMPARISON: None. FINDINGS: EKG electrodes are seen. Large right pleural effusion with volume loss in the right lower lobe. There is no demonstrated pleural abnormality. Normal size heart. Normal mediastinum and kamron. Normal visualized pulmonary arteries. Normal visualized aortic arch and descending thoracic aorta. There are diffuse degenerative changes of the visualized thoracic spine. Normal visualized ribs, clavicles, and shoulders. There is no demonstrated abnormality of the visualized soft tissue structures of the upper abdomen. RAD/Chest 1 View (Portable) IMPRESSION: Large right pleural effusion. Compressive atelectasis of the right lower lobe. Electronically Signed: Bhanu Richard, at 11:23 EST , Service support ,
[2020-03-10 10:59] LABS: Anion Gap 7 (5-15); BUN 39 mg/dL (7-18); BUN/Creat Ratio 32.8 RATIO (10-20); Calcium,Total 8.5 mg/dL (8.5-10.1); Chloride 109 mmol/L (98-107); Creatinine, Serum 1.19 mg/dL (0.55-1.02); EST Glomerular Filtration Rate 47 mL/min (>60); Est Glom Filt Rate - Afr Amer 57 mL/min (>60); Glucose 104 mg/dL (74-106); Potassium 4.2 mmol/L (3.5-5.1); Sodium Level 138 mmol/L (136-145)
--- NOTE | 2020-03-10 10:59 | ED.VIS.CHEST ---
History of Present Illness Chief Complaint: Palpitations Informant: Patient Narrative: Patient presenting for evaluation secondary to an elevated heart rate. Patient has an underlying history of cirrhosis as well as atrial fibrillation, she is anticoagulated with Eliquis. Patient apparently was recently taken off of all of her medications secondary to issues with low heart rates and elevated potassium. She still on her blood thinners. Patient was in the hospital today for a scheduled paracentesis, and was noted to have a fast irregular heart rate. She does not really have significant symptoms from this, denies chest pain or palpitations. Patient did not have a significant amount of abdominal fluid today and did not require paracentesis. She was brought to the emergency department for further evaluation. Patient denies recent illness such as fever cough. Past Medical History - Allergies and Home Meds Allergies/Adverse Reactions: Allergies Jiyffyz-Hdr-Eqt Reductase Inhibitor Allergy (Intermediate, Verified 03/04/20 12:10) elevated liver enzymes Sulfa (Sulfonamide Antibiotics) Adverse Reaction (Intermediate, Verified 03/04/20 14:48) Nausea Prior records reviewed: Yes Past Medical History: - - Atrial fibrillation, cirrhosis Lives: With Family Smoking Status: Never smoker Review of Systems All systems negative except as indicated General: Denies: Chills, Fever, Sweats Eyes: Denies: Visual changes - bilaterally, Diplopia ENT: Denies: Rhinorrhea, Sore throat Cardiovascular: Denies: Chest pain, Palpitations Respiratory: Denies: Dyspnea, Cough, Dyspnea on exertion Gastrointestinal: Denies: Abdominal pain, Nausea, Vomiting, Diarrhea, Melena, Hematochezia Genitourinary: Denies: Dysuria, Hematuria, Frequency Musculoskeletal: Denies: Back pain, Extremity Pain Skin: Denies: Rash, Wounds Neurological: Denies: Headache, Weakness, Numbness Physical Exam Vital Signs/Narrative: Vital Signs Temp Pulse Resp BP Pulse Ox 03/10/20 10:51 136 H 19 H 110/37 L 96 03/10/20 10:36 96 03/10/20 10:25 97.8 F 145 H 32 H 102/81 H 94 Inital Vital Signs reviewed: Yes General: Well nourished, Well developed, No Acute Distress Head: Normocephalic, Atraumatic Eyes: Perrl, EOMI ENT: Moist mucous membranes, No rhinorrhea Neck: Supple, Nontender Cardiovascular: No murmurs, Irregular, Tachycardia, - - 2+ radial pulses bilaterally symmetric Respiratory: No distress, CTA bilaterally, Chest nontender Abdomen: Soft, Nontender, Normal bowel sounds, - - Very mild abdominal distention, no guarding or rebound Back: Nontender, Normal Inspection Extremities: Nontender, No edema Skin: Normal color, No rash Neurological: Alert, Oriented x3, Cranial nerves II-XII grossly intact, Normal Strength, Normal Sensation Psychological: Normal affect, Normal Mood Diagnostic/Tx/Re-eval Chest X-Ray - ED: 1 View, Read by ED Physician, Right Effusion Clinical Impression(s) from Imaging Studies Chest X-Ray 03/10/20 10:46 IMPRESSION: Large right pleural effusion. Compressive atelectasis of the right lower lobe. Electronically Signed: Bhanu Richard, at 11:23 EST , Service support , Laboratory Data 03/10/20 03/10/20 10:32 10:32 WBC 7.3 RBC 3.65 L Hgb 12.0 Hct 35.5 L MCV 97.3 MCH 32.9 H MCHC 33.8 RDW Std Deviation 55.9 H RDW Coeff of Bhavesh 15.8 H Plt Count 148 L MPV 11.1 Immature Gran % (Auto) 0.400 Neut % (Auto) 63.9 Lymph % (Auto) 21.1 [place] % (Auto) 12.0 H Eos % (Auto) 1.9 Baso % (Auto) 0.7 Absolute Neuts (auto) 4.7 Absolute Lymphs (auto) 1.54 Nucleated RBC % 0 Sodium 138 Potassium 4.2 Chloride 109 H Carbon Dioxide 22.0 Anion Gap 7 BUN 39 H Creatinine 1.19 H Estim Creat Clear Calc 40.00 Est GFR (MDRD) Af Amer 57 L Est GFR (MDRD) Non-Af 47 L BUN/Creatinine Ratio 32.8 H Glucose 104 Calcium 8.5 Troponin I < 0.015 - EKG Initial EKG Interpretation: - - Atrial fibrillation with rapid ventricular rate of 157. Left bundle branch block morphology is noted which is present on patient's prior EKG about a week ago. No evidence of discordant ST elevation, no significant T wave changes - Medical Decision Making Patient presented secondary to poorly controlled atrial fibrillation with rapid ventricular rate. IV was established laboratory studies were obtained. Patient was given 2 doses of 5 mg of Lopressor. Unfortunately this did not control the patient's rate, and dropped her blood pressure into the 80s systolic. Multiple repeat evaluations shows the patient to still be adequately perfusing and mentating normally I do not feel that she requires cardioversion. Work-up shows the patient to have a normal troponin. Chest x-ray by my review as well as radiology shows a sizable right-sided pleural effusion. I discussed patient's case with cardiology who recommended digoxin as well as a Cardizem drip. Patient was given a fluid bolus in the emergency department. I discussed patient's case with the hospitalist, patient will be admitted for further management. Critical care time (excluding procedures): 30-74 minutes ED Disposition - Plan for ED Patient: Disposition: Acute Care Hospital [facility] Diagnosis: Paroxysmal atrial fibrillation
[2020-03-10] MEDS: 0.9% Normal Saline 1,000 ML 500 ML IV (11:18)
[2020-03-10] MEDS: Digoxin 250 MCG/ML Ampul 500 MCG IV (11:43)
--- NOTE | 2020-03-10 12:48 | PCM.HP.STD ---
Problem List (1) Atrial fibrillation with RVR Status: Acute (2) Hyperkalemia Status: Inactive (3) Ascites Status: Chronic Qualifiers: Ascites type: other type Qualified Code(s): R18.8 - Other ascites Comment: Dr. Cuevas is doing paracentesis on 02/06/20 (4) Non-alcoholic cirrhosis Status: Chronic (5) Essential hypertension Status: Chronic (6) LBBB (left bundle branch block) Status: Chronic (7) Paroxysmal atrial flutter Status: Chronic (8) Paroxysmal atrial fibrillation Status: Chronic (9) Hyperlipidemia Status: Chronic Qualifiers: (10) Type 2 diabetes mellitus without complication Status: Chronic Qualifiers: History of Present Illness Date of Admission: 03/10/20 Chief Complaint: Found A. fib with RVR in the radiology suite. The patient is a 74 year old F with history of possible Alexander liver cirrhosis went for scheduled paracentesis and was found to be in A. fib with RVR. Patient denies any symptoms including dizziness, lightheadedness, palpitation or flutter waves. Denies chest pain or tightness. She was recently admitted for hyperkalemia and was taken off rate control medications except Eliquis. Patient was on carvedilol 3.125 mg twice daily, furosemide, spironolactone and potassium supplement prior to previous admission. She had a stopped Entresto as an outpatient. In the ED triage blood pressure was 102/81, 110/37 but dropped to 85/55 after 2doses of metoprolol 5 mg IV. Patient's heart rate was 145 which improved to 123/min. Industrial Design Intern Dr. Ackerman was consulted. On diltiazem 5 mg IV per hour During previous admission also patient's blood pressure was low in 90s systolics. Her orthostatics were negative. Patient had paracentesis few weeks ago and had 7.5 L removed as an outpatient. EKG shows A. fib with RVR at 157 bpm with PVCs, LAD and LBBB. [] Past Medical History Past Medical History (Chronic Problems): Chronic Problems (Last Reviewed 03/04/20 @ 14:[address] Roderick De Los Santos DO) Ascites (Chronic) Dr. Cuevas is doing paracentesis on 02/06/20 Non-alcoholic cirrhosis (Chronic) Essential hypertension (Chronic) LBBB (left bundle branch block) (Chronic) Paroxysmal atrial flutter (Chronic) Paroxysmal atrial fibrillation (Chronic) Hyperlipidemia (Chronic) Type 2 diabetes mellitus without complication (Chronic) Medical History: Medical History (Last Reviewed 03/04/20 @ 14:[address] Roderick De Los Santos DO) Ascites (Chronic) R18.8 Dr. Cuevas is doing paracentesis on 02/06/20 Non-alcoholic cirrhosis (Chronic) K74.60 Essential hypertension (Chronic) I10 LBBB (left bundle branch block) (Chronic) I44.7 Paroxysmal atrial flutter (Chronic) I48.92 Paroxysmal atrial fibrillation (Chronic) I48.0 Hyperlipidemia (Chronic) E78.5 Type 2 diabetes mellitus without complication (Chronic) E11.9 Fatty liver K76.0 Steatohepatitis, non-alcoholic K75.81 Allergies Qdqlcyk-Ltd-Upe Reductase Inhibitor Allergy (Intermediate, Verified 03/04/20 12:10) elevated liver enzymes Sulfa (Sulfonamide Antibiotics) Adverse Reaction (Intermediate, Verified 03/04/20 14:48) Nausea Home Medications: Ambulatory Orders Medication Instructions Recorded apixaban 5 mg tablet 5 mg PO BID #180 tab 12/17/19 Aspirin E.C. [Ecotrin] 81 mg PO DAILY@0800 03/04/20 Ezetimibe [Zetia] 10 mg PO DINNER 03/04/20 Surgical History: Surgical History (Last Reviewed 03/04/20 @ 14:[address] Roderick De Los Santos DO) History of lumpectomy of left breast Z98.890 History of lumpectomy of left breast Z98.890 History of tonsillectomy Z90.89 History of tonsillectomy Z90.89 Lives: With Family Smoking Status: Never smoker Tobacco Use: Non-smoker - *Family History Maternal Family History: Family History (Last Reviewed 03/04/20 @ 14:[address] Roderick De Los Santos DO) Mother CVA (cerebral vascular accident) Atrial fibrillation Father Cancer Brother CAD (coronary artery disease) Pacemaker Review of Systems Constitutional: Denies: Chills, Fever, Weight Change HEENT: Denies: Head Aches, Sinus Congestion, Sinus Drainage Cardiovascular: Denies: Chest Pain, Chest Pressure, Chest Tightness, Heaviness, Light Headedness, Orthopnea, Palpitations, Syncope Respiratory: Denies: Cough, Hemoptysis, Shortness of Breath, Shortness of breath at rest, Sputum production Gastrointestinal: Denies: Abdominal Pain, Nausea, Vomiting Genitourinary: Denies: Dysuria Musculoskeletal: Denies: Joint Pain, Joint Tenderness Skin: Denies: Rash, Wounds Neurological: Denies: Numbness, Tingling, Focal weakness Psychiatric: Denies: Anxiety, Depression, Homicidal Ideations, Suicidal Ideations Hematologic/ Lymphatic: Denies: Easy Bruising, Easy Bleeding VTE Information - Inpt Only VTE Present on Admission: No VTE Pharm Prophylaxis ordered?: No Reason prophylaxis not ordered:: Treatment Not Indicated - Already on Eliquis Patient Problems: Active and Suspected Problems (Last Reviewed 03/04/20 @ 14:[address] Roderick De Los Santos, DO) Atrial fibrillation with RVR (Acute) - Physical Exam Vitals/I&O's: Vital Signs Temp Pulse Resp BP Pulse Ox 98.1 F 123 H 26 H 96/76 97 03/10/20 12:27 03/10/20 12:35 03/10/20 12:35 03/10/20 12:35 03/10/20 12:35 Oxygen Flow Rate (L/min) 3 Oxygen Delivery Method Nasal Cannula Weight: 137 lb 2.04 oz Body Mass Index (BMI) 22.1 Intake and Output for Last 24 Hours 03/08/20 03/09/20 03/10/20 23:59 23:59 23:59 Intake Total 1001.67 / 1001.67 Balance 1001.67 / 1001.67 General: Alert, Oriented x3, Cooperative HEENT: Atraumatic, PERRLA, EOMI, Normocephalic Neck: Supple, No JVD, Negative Carotid Bruits Lungs: Clear to auscultation, No rhonchi, No wheeze, No rales, Diminished Cardiovascular: Regular rate, Regular Rhythm, Normal S1, Normal S2, No murmurs Abdomen: Bowel Sounds Present, Soft, Non Tender, Non-Distended Extremities: No edema, Capillary Refill Less than 3 Seconds Skin: No rashes, No breakdown Musculoskeletal: No Tenderness to Palpation of Joints or Extremities Neurological: Cranial nerves II-XII grossly intact, Deep Tendon Reflexes 2+/4 and Symmetrical, Neuro grossly intact Psych/Mental Status: Normal Affect, Appropriate Laboratory Results 03/10/20 10:32: WBC 7.3, RBC 3.65 L, Hgb 12.0, Hct 35.5 L, MCV 97.3, MCH 32.9 H, MCHC 33.8, RDW Std Deviation 55.9 H, RDW Coeff of Bhavesh 15.8 H, Plt Count 148 L, MPV 11.1, Immature Gran % (Auto) 0.400, Neut % (Auto) 63.9, Lymph % (Auto) 21.1, [place] % (Auto) 12.0 H, Eos % (Auto) 1.9, Baso % (Auto) 0.7, Absolute Neuts (auto) 4.7, Absolute Lymphs (auto) 1.54, Nucleated RBC % 0 03/10/20 10:32: Sodium 138, Potassium 4.2, Chloride 109 H, Carbon Dioxide 22.0, Anion Gap 7, BUN 39 H, Creatinine 1.19 H, Estim Creat Clear Calc 40.00, Est GFR (MDRD) Af Amer 57 L, Est GFR (MDRD) Non-Af 47 L, BUN/Creatinine Ratio 32.8 H, Glucose 104, Calcium 8.5, Troponin I < 0.015 Current Medications Diltiazem HCl 125 mg/ Dextrose 125 mls @ 5 mls/hr IV .Q25H LESLIE; Protocol Stop: 03/11/20 12:34 Last Titration: 03/10/20 12:15 Dose: 10 mg/hr, 10 mls/hr Documented by: Sodium Chloride () 1,000 mls @ 500 mls/hr IV .Q2H LESLIE Stop: 03/10/20 14:19 Last Infusion: 03/10/20 12:34 Dose: Infused Documented by: Sodium Chloride () 500 mls @ 500 mls/hr IV .Q1H LESLIE Stop: 03/10/20 13:29 Last Admin: 03/10/20 12:18 Dose: 500 mls/hr Documented by: Assessment/Plan All Active Problems (Last Reviewed 03/04/20 @ 14:[address] Roderick De Los Santos, DO) Atrial fibrillation with RVR (Acute) This 74-year-old female with history of possible Alexander cirrhosis was found to be A. fib with RVR on a rescheduled visit for paracentesis. 1. A. fib with RVR with hypotension: Patient being admitted in ICU for hypotension. 2 boluses of 500 normal saline ordered by PCP. Continue IV fluid 75 mill per hour for 1 more liter. Orthostatic blood pressure tomorrow a.m. Patient has chronic hypotension secondary to cirrhosis with vasodilation. If her blood pressure remains low, can try midodrine. 2. ALEXANDER treated cirrhosis: Interventional radiologist did not find significant ascites for paracentesis. Does not have leg edema. 3. Right large pleural effusion: Chest x-ray shows large right pleural effusion with compressive atelectasis of right lower lobe. Discussed with interventional radiologist Dr. Yap and scheduled for thoracocentesis tomorrow a.m. if patient is hemodynamically stable. Hold Eliquis. 4. Chronic kidney disease, stage III: Patient was recently admitted for acute kidney injury with hyperkalemia: Potassium normal. BUN 39. Creatinine 1.19. Patient is off Lasix, spironolactone and Entresto. Advance care directive: Patient is DNR CC arrest. Inpatient E&M: 20138 Init Hosp L3
--- NOTE | 2020-03-10 15:28 | CON.PCM_ITS ---
Reason for Consult Date of Consultation: 03/10/20 Reason for Consultation: Atrial fibrillation with rapid ventricular response History of Present Illness: The patient is a 74 year old F with a history of cirrhosis of the liver who was scheduled for paracentesis. She came in today and was found to be in atrial fibrillation with a rapid ventricular response rate. She was recently hospitalized and on discharge she saw me in the hallway and I called her primary roustabout crew pusher to arrange for follow-up. She does have a history of chronic persistent atrial fibrillation on medication. Her ventricular response rate has been erratic. In the ED she was given 2 doses of 5 mg of intravenous metoprolol which resulted in hypotension. She was admitted to the intensive care unit I was called emergently because her blood pressure was in the high 60s. She denies any chest pain no dizziness no kely syncopal spells. She did have an echocardiogram performed approximately a year ago which demonstrated an ejection fraction of 40% with segmental wall motion abnormalities. She had previously been on Eliquis but during her recent admission for hyperkalemia she was taken of rate control medications except for Eliquis but patient tells me that she has not taken the Eliquis as well. [] Past Medical History Allergies/Adverse Reactions: Allergies Gdnpmou-Rwu-Mnm Reductase Inhibitor Allergy (Intermediate, Verified 03/04/20 12:10) elevated liver enzymes Sulfa (Sulfonamide Antibiotics) Adverse Reaction (Intermediate, Verified 03/04/20 14:48) Nausea Home Medications: Ambulatory Orders Medication Instructions Recorded apixaban 5 mg tablet 5 mg PO BID #180 tab 12/17/19 Aspirin E.C. [Ecotrin] 81 mg PO DAILY@0800 03/04/20 Ezetimibe [Zetia] 10 mg PO DINNER 03/04/20 Past Medical History (Chronic Problems): Chronic Problems (Last Reviewed 03/04/20 @ 14:[address] Roderick De Los Santos, DO) Ascites (Chronic) Dr. Cuevas is doing paracentesis on 02/06/20 Non-alcoholic cirrhosis (Chronic) Essential hypertension (Chronic) LBBB (left bundle branch block) (Chronic) Paroxysmal atrial flutter (Chronic) Paroxysmal atrial fibrillation (Chronic) Hyperlipidemia (Chronic) Type 2 diabetes mellitus without complication (Chronic) - *Family History Maternal Family History: Family History (Last Reviewed 03/04/20 @ 14:[address] Roderick De Los Santos, DO) Mother CVA (cerebral vascular accident) Atrial fibrillation Father Cancer Brother CAD (coronary artery disease) Pacemaker Lives: With Family Smoking Status: Never smoker Tobacco Use: Non-smoker Alcohol: None Drugs: None Review of Systems - Review of Systems General: Reports: Fatigue. Denies: Fever, Night Sweats HEENT: Denies: Vision Change Cardiovascular: Reports: Palpitations. Denies: Chest Discomfort, Shortness of Breath, Orthopnea, PND, Peripheral Edema, Lightheadedness, Dizziness, Near Syncope, Syncope Respiratory: Denies: Cough, Sputum Production, Hemoptysis Gastrointestinal: Reports: Abdominal Discomfort. Denies: Hematemesis, Hematochezia, Melena Genitourinary: Denies: Dysuria, Hematuria Skin: Denies: Rash Neurological: Denies: Dizziness Psychiatric: Denies: Anxiety Endocrine: Denies: Unexplained Weight Loss Hematologic/ Lymphatic: Reports: Anemia Subjectve: Pleasant lady in no distress looking older than his stated age Objective: Vital Signs Temp Pulse Resp BP Pulse Ox 98.1 F 124 H 28 H 85/71 L 97 03/10/20 12:27 03/10/20 13:22 03/10/20 13:22 03/10/20 13:22 03/10/20 13:22 Oxygen Flow Rate (L/min) 3 Oxygen Delivery Method Nasal Cannula Weight: 137 lb 4.8 oz Body Mass Index (BMI) 22.1 Intake and Output for Last 24 Hours 03/08/20 03/09/20 03/10/20 23:59 23:59 23:59 Intake Total 1001.67 / 1001.67 Output Total 100 / 100 Balance 901.67 / 901.67 General: Awake, Alert, Oriented x 3 HEENT: PERRL, EOMI, Sclera Non Icteric Neck: Supple, Good ROM, No Lymph Node Enlargement Lungs: Clear to auscultation Cardiovascular: Irregular Rhythm, Normal S1, Normal S2, No Murmurs, No Rubs, No Gallops Vascular: No Carotid Bruits, Normal Femoral Pulses, Normal Radial Pulses, Normal Dorsalis Pedal Pulse, Normal Posterior Tibial Pulses Abdomen: Bowel Sounds Present, Soft, Non Tender, No HSM, Distended Extremities: No Cyanosis, No Clubbing, No edema Musculoskeletal: No Erythema Skin: No Rashes Neurological: No Focal Motor or Sensory Deficit 03/10/20 10:32: WBC 7.3, RBC 3.65 L, Hgb 12.0, Hct 35.5 L, MCV 97.3, MCH 32.9 H, MCHC 33.8, Plt Count 148 L, MPV 11.1, Immature Gran % (Auto) 0.400, Neut % (Auto) 63.9, Lymph % (Auto) 21.1, [place] % (Auto) 12.0 H, Eos % (Auto) 1.9, Baso % (Auto) 0.7, Absolute Neuts (auto) 4.7, Nucleated RBC % 0 03/10/20 10:32: Sodium 138, Potassium 4.2, Chloride 109 H, Carbon Dioxide 22.0, Anion Gap 7, BUN 39 H, Creatinine 1.19 H, Est GFR (MDRD) Af Amer 57 L, Est GFR (MDRD) Non-Af 47 L, BUN/Creatinine Ratio 32.8 H, Glucose 104, Calcium 8.5, Trop onin I < 0.015 Rhythm: EKG: Atrial fibrillation with rapid ventricular response rate and a left bundle branch block pattern ECHO: Stress Test: Cardiac Cath: PCI: CT Surgery: Holter monitor: EPS: PPM: CXR: Chest CT Scan: Assessment/Plan 1. Atrial fibrillation with a rapid ventricular response rate * Patient presents for paracentesis is noted to be in atrial fibrillation with a rapid ventricular response rate. Received beta-sabino with resultant hypotension. At this time patient appears to be relatively asymptomatic. * My recommendation is to continue with some fluid resuscitation * Agree with intravenous digitalis * Low-dose diltiazem for now * Cannot anticoagulate due to the fact that the patient has been off Eliquis * Will try and rate control with p.o. digoxin and diltiazem * Further recommendations will be as per primary roustabout crew pusher. * 2. Nonalcoholic cirrhosis * Patient would follow with primary care as well as the GI service for this. * 3. Left ventricular systolic dysfunction * Patient is noted to have mild left ventricular systolic dysfunction. We will recommend repeating echocardiogram to reassess left ventricular function. * Thank you for allowing me to participate in the care of your patient. Please don't hesitate to call if any issues arise.
--- NOTE | 2020-03-10 15:33 | ECHOL_ITS ---
Version 2 Reason For Study: Afib/Flutter Procedure This was a limited 2D transthoracic echocardiogram. Technically difficult study. Patient unable to lay on left side or stay on back due to very difficulty breathing. Patient was sitting upright and leaning towards the right for imaging. Contrast injection performed. Unable to obtain accurate EKG because of patients respirations. The study was technically difficult. Exam performed portable in ICU/CCU. Left Ventricle Left ventricular systolic function is normal. The estimated ejection fraction is 65 %. Septal motion consistent with IVCD. Unable to assess diastolic dysfunction. No regional wall motion abnormalities noted. Right Ventricle Normal RV size. Normal systolic function. Atria The left atrium is mildly enlarged. Normal right atrium. Hypermobile atrial septum. No doppler evidence for ASD. Bubble contrast study negative for right to left interatrial shunt. Mitral Valve There is no mitral annular calcification. Normal mitral valve. Mild-Moderate (1-2+) eccentric mitral valve insufficiency. Tricuspid Valve Normal tricuspid valve. Moderate (2+) eccentric tricuspid valve insufficiency. Right ventricular systolic pressure estimated to be 44 mmHg. Aortic Valve Trisinus/trileaflet aortic valve. Normal aortic valve. Pulmonic Valve The pulmonic valve is not well visualized. Trivial pulmonic valve insufficiency. Great Vessels The aortic root is not well visualized. Pericardium/Pleural No pericardial effusion. Echo lucency compatible with a large pleural effusion with associated 2D echocardiographic images potentially compatible with lung tissue versus fibrinous strands/material. Medication Performed a rapid injection of agitated mix of 9 cc saline and 1cc air to assess for atrial septal defect. MMode/2D Measurements & Calculations LAV(MOD-bp): 57.7 ml LA A4 area: 21.9 cm2 LAV(MOD-bp) Indexed: 33.9 ml/m2 LAV(MOD-sp2): 46.9 ml LAV(MOD-sp4): 66.9 ml Doppler Measurements & Calculations TR max nicole: 317.8 cm/sec TR max P.2 mmHg Interpretation Summary The study was technically difficult. Left ventricular systolic function is normal. The estimated ejection fraction is 65 %. Septal motion consistent with IVCD. The left atrium is mildly enlarged. Hypermobile atrial septum. Mild-Moderate (1-2+) eccentric mitral valve insufficiency. Moderate (2+) eccentric tricuspid valve insufficiency. Trivial pulmonic valve insufficiency. Echo lucency compatible with a large pleural effusion with associated 2D echocardiographic images potentially compatible with lung tissue versus fibrinous strands/material. Right ventricular systolic pressure estimated to be 44 mmHg. Unable to assess diastolic dysfunction. Bubble contrast study negative for right to left interatrial shunt. Ordering Physician: Boogie Bullard Referring Physician: Po Maldonado Performed By: Napoleon Whitfield RCS
[2020-03-10 15:42] LABS: Magnesium 1.7 mg/dL (1.6-2.6)
[2020-03-10] MEDS: Midodrine HCl 5 MG Tablet 10 MG PO ×2 (16:39→22:53)
[2020-03-10] MEDS: Digoxin 250 MCG/ML Ampul IV ×2 (16:40→22:53)
[2020-03-10] MEDS: 0.9% Normal Saline 1,000 ML 100 ML IV (16:40)
[2020-03-10] MEDS: Ezetimibe 10 MG Tablet PO (16:41)
[2020-03-11] VITALS (30 sets, daily range): BP systolic 96–137; BP diastolic 58–97; PULSE 68–141; RESP 18–36; TEMP 36.6–37.1; O2SAT 90–97
--- NOTE | 2020-03-11 | FLU_PTH ---
PATIENT: STEPH CORTEZ I LOC: [facility] U#:[id number] AGE/SX: 74/F ROOM: [facility] RE03/10/[address]: Dr. Dio Carter MD : 1945 BED: 1 DIS: 03/13/2020 SPEC #: [id number] RECD: 03/11/20 13:11 STATUS: ALEX REIsac #: [id number] CHACORTA: 03/11/20 00:[address]: Dio Carter DEPT: CYTOLOGY RECD BY: Alex Perdomo ENTERED: 03/12/20 08:47 SP TYPE: Fluid OTHR DR: MD Dr. Po Conner MD Tissues: THORACIC FLUID Procedures: Special Stain Group II Surgery Specimen Level IV Cytospin Fluid HEADER OPERATION: Thoracentesis, right chest PRE-OP DIAGNOSIS: Pleural effusion TISSUE SUBMITTED: Thoracentesis fluid for cytology DIAGNOSIS CYTOLOGY Thoracentesis fluid for cytology (cytospin and cell block): Negative for malignant cells. TOMMY:beatrice 03/13/2020 CYTOLOGY STUDY Slides are reviewed. CYTOLOGY GROSS Received is 80 ml of yellow cloudy fluid labeled with the patient's name and and designated per the requisition as thoracentesis. Submitted for cytology preparation including cell block. / beatrice 03/12/2020 TC:5 CPT: 96815, 07143
[2020-03-11] MEDS: 0.9% Normal Saline 1,000 ML 100 ML IV (01:58)
[2020-03-11 03:49] LABS: Absolute Lymphocyte Count 1.26 X10^3/uL (0.83-4.51); Absolute Neutrophil Count 4.7 X10^3/uL (2.0-7.7); Basophil# 0.03 X10^3/uL; Basophil% 0.4 % (0-1); Eosinophil# 0.15 X10^3/uL; Eosinophils% 2.1 % (0-5); Hematocrit 31.3 % (37-47); Hemoglobin 10.8 g/dL (12.0-15.0); Lymphocyte # 1.26 X10^3/ul (4.0); Lymphocyte % 17.9 % (19-41); Mean Corp Hgb Conc 34.5 g/dL (32-36); Mean Corpuscular Hgb 33.6 pg (27.0-32.0); Mean Corpuscular Volume 97.5 fL (81-99); Mean Platelet Vol. 10.6 fl (6.2-12.0); Monocyte# 0.92 X10^3/uL; Monocyte% 13.1 % (0-10); NRBC Flagged by Analyzer 0 % (0-5); Neutrophil # 4.66 X10^3/uL (2.7-7.7); Neutrophil % 66.2 % (47-70); Platelet Count 130 K/mm3 (150-450); RBC Distribution Width CV 15.8 % (11.6-14.6); RBC Distribution Width SD 56.3 fl (35.1-43.9); Red Blood Count 3.21 M/mm3 (4.2-5.4)
[2020-03-11 04:05] LABS: BNP,B-Type NATRIURETIC PEPTIDE 704.4 pg/mL (0-100)
[2020-03-11 04:22] LABS: AST(SGOT) 68 U/L (15-37); Alanine Aminotransfer ALT/SGPT 63 U/L (13-56); Alkaline Phosphatase 199 U/L (45-117); Anion Gap 5 (5-15); BUN 30 mg/dL (7-18); BUN/Creat Ratio 35.2 RATIO (10-20); Bilirubin, Direct 0.57 mg/dL (0.00-0.30); Calcium,Total 7.1 mg/dL (8.5-10.1); Chloride 114 mmol/L (98-107); Cholesterol 107 mg/dL (200); Creatinine, Serum 0.85 mg/dL (0.55-1.02); EST Glomerular Filtration Rate 70 mL/min (>60); Est Glom Filt Rate - Afr Amer 84 mL/min (>60); Estimated Creatinine Clearance 56.01 ml/min; Globulin 3.4 g/dL (2.2-4.2); Glucose 85 mg/dL (74-106); High Density Lipoprotein 21 mg/dL; LDH 156 U/L (84-246); Potassium 4.1 mmol/L (3.5-5.1); Protein, Total 5.4 g/dL (6.4-8.2); Sodium Level 139 mmol/L (136-145); Thyroid Stim Hormone (TSH) 2.55 uIU/mL (0.358-3.74); Triglycerides 67 mg/dL; Very Low Density Lipoprotein 13 mg/dL (5-40)
[2020-03-11] MEDS: Midodrine HCl 5 MG Tablet 10 MG PO ×3 (04:38→22:54)
--- NOTE | 2020-03-11 07:28 | PN_ITS ---
Patient Problems: Active and Suspected Problems (Last Reviewed 03/04/20 @ 14:[address] Roderick De Los Santos, DO) Atrial fibrillation with RVR (Acute) Objective: Patient heart rate is around 115/min, irregular. A. fib with RVR. Tachypneic but not hypoxic, patient is on room air. Patient is short of breath and fatigue. Seen by bee raiser. Plan for ultrasound guided right thoracocentesis for large pleural effusion. Physical exam General: Alert, Oriented x3, Cooperative HEENT: Atraumatic, PERRLA, EOMI, Normocephalic Oral: No Gingival or Mucosal Lesions/ Ulcerations Neck: Supple, No JVD, Negative Carotid Bruits Lungs: Air entry diminished in right secondary to large pleural effusion. No crepitation/rhonchi Cardiovascular: Irregularly irregular heartbeat, tachycardia normal S1, Normal S2, No murmurs Abdomen: Bowel Sounds Present, Soft, Non Tender, Non-Distended. No significant ascites. : No renal angle tenderness. No suprapubic tenderness. Extremities: No ankle edema, Capillary Refill Less than 3 Seconds Skin: No rashes, No breakdown Musculoskeletal: No Tenderness to Palpation of Joints or Extremities Neurological: Cranial nerves II-XII grossly intact, Deep Tendon Reflexes 2+/4 and Symmetrical, Neuro grossly intact Psych/Mental Status: Normal Affect, Appropriate. Vitals/I&O's: Vital Signs Temp Pulse Resp BP Pulse Ox 98.7 F 115 H 28 H 113/75 91 03/11/20 04:00 03/11/20 06:00 03/11/20 06:00 03/11/20 06:00 03/11/20 06:34 Oxygen Flow Rate (L/min) 2 Oxygen Delivery Method Room Air Weight: 142 lb 6.698 oz Body Mass Index (BMI) 22.1 Intake and Output for Last 24 Hours 03/09/20 03/10/20 03/11/20 23:59 23:59 23:59 Intake Total 1689.17 / 1689.17 930 / 930 Output Total 350 / 350 0 / 0 Balance 1339.17 / 1339.17 930 / 930 Laboratory Results 03/10/20 10:32: WBC 7.3, RBC 3.65 L, Hgb 12.0, Hct 35.5 L, MCV 97.3, MCH 32.9 H, MCHC 33.8, RDW Std Deviation 55.9 H, RDW Coeff of Bhavesh 15.8 H, Plt Count 148 L, MPV 11.1, Immature Gran % (Auto) 0.400, Neut % (Auto) 63.9, Lymph % (Auto) 21.1, [place] % (Auto) 12.0 H, Eos % (Auto) 1.9, Baso % (Auto) 0.7, Absolute Neuts (auto) 4.7, Absolute Lymphs (auto) 1.54, Nucleated RBC % 0 03/10/20 10:32: Sodium 138, Potassium 4.2, Chloride 109 H, Carbon Dioxide 22.0, Anion Gap 7, BUN 39 H, Creatinine 1.19 H, Estim Creat Clear Calc 40.00, Est GFR (MDRD) Af Amer 57 L, Est GFR (MDRD) Non-Af 47 L, BUN/Creatinine Ratio 32.8 H, Glucose 104, Calcium 8.5, Troponin I < 0.015 03/10/20 15:00: Magnesium 1.7 03/10/20 15:00: Troponin I 0.015 03/10/20 19:55: Troponin I < 0.015 03/11/20 03:40: WBC 7.0, RBC 3.21 L, Hgb 10.8 L, Hct 31.3 L, MCV 97.5, MCH 33.6 H, MCHC 34.5, RDW Std Deviation 56.3 H, RDW Coeff of Bhavesh 15.8 H, Plt Count 130 L , MPV 10.6, Immature Gran % (Auto) 0.300, Neut % (Auto) 66.2, Lymph % (Auto) 17.9 L, [place] % (Auto) 13.1 H, Eos % (Auto) 2.1, Baso % (Auto) 0.4, Absolute Neuts (auto) 4.7, Absolute Lymphs (auto) 1.26, Nucleated RBC % 0 03/11/20 03:40: Sodium 139, Potassium 4.1, Chloride 114 H, Carbon Dioxide 20.0 L , Anion Gap 5, BUN 30 H, Creatinine 0.85, Estim Creat Clear Calc 56.01, Est GFR (MDRD) Af Amer 84, Est GFR (MDRD) Non-Af 70, BUN/Creatinine Ratio 35.2 H, Glucose 85, Calcium 7.1 L, Total Bilirubin 1.00, Direct Bilirubin 0.57 H, AST 68 H, ALT 63 H, Alkaline Phosphatase 199 H, Lactate Dehydrogenase 156, Total Protein 5.4 L, Albumin 2.0 L, Globulin 3.4, Triglycerides 67, Cholesterol 107, LDL Cholesterol 73, VLDL Cholesterol 13, HDL Cholesterol 21 L, TSH 2.55 03/11/20 03:40: B-Natriuretic Peptide 704.4 H Current Medications Acetaminophen (Acetaminophen 325 Mg Tablet) 650 mg PO Q6H PRN PRN PRN Reason: Pain Score 1-10/Temp > 100.7 F Aspirin (Aspirin E.C. 81 Mg Tablet) 81 mg PO DAILY@0800 [facility] Ezetimibe (Ezetimibe 10 Mg Tablet) 10 mg PO DINNER [facility] Last Admin: 03/10/20 16:41 Dose: 10 mg Documented by: Diltiazem HCl 125 mg/ Dextrose 125 mls @ 5 mls/hr IV .Q25H [facility]; Protocol Stop: 03/11/20 12:34 Last Titration: 03/10/20 20:00 Dose: 0 mg/hr, 0 mls/hr Documented by: Sodium Chloride () 1,000 mls @ 100 mls/hr IV .Q10H [facility] Last Admin: 03/11/20 02:28 Dose: Not Given Documented by: Midodrine (Midodrine Hcl 5 Mg Tablet) 10 mg PO TID [facility] Last Admin: 03/11/20 04:38 Dose: 10 mg Documented by: Morphine Sulfate (Morphine 2 Mg/Ml Syringe) 2 mg IV Q3H PRN PRN PRN Reason: Pain Score 6-10 Nitroglycerin (Nitroglycerin (Inpatient Use) 0.4 Mg Tab.Subl) 0.4 mg SUBLINGUAL Q5M PRN PRN Reason: CARDIAC/CHEST PAIN Nutritional Formula (Lactose Free) (Ensure Enlive 120 Ml Liquid) 120 ml PO 4X/DAY [facility] Last Admin: 03/10/20 22:53 Dose: 120 ml Documented by: Oxycodone HCl (Oxycodone 5 Mg Tablet) 5 mg PO Q4H PRN PRN PRN Reason: Pain Score 4-5 Prochlorperazine Edisylate (Prochlorperazine 10 Mg/2 Ml Vial) 5 mg IV Q4H PRN PRN PRN Reason: Breakthrough Nausea/Vomiting Senna/Docusate Sodium (Senna/Docusate Sodium 1 Tablet) 2 tablet PO BID PRN PRN Reason: Constipation STROKE Vital Signs/Narrative: Vital Signs Temp Pulse Resp BP Pulse Ox 03/11/20 06:34 91 03/11/20 06:00 115 H 28 H 113/75 91 03/11/20 05:00 102 H 26 H 109/85 H 92 03/11/20 04:00 98.7 F 115 H 23 H 106/87 H 91 Medical Necessity - Tobacco Use Smoking Status: Never smoker Tobacco Use: Non-smoker Assessment/Plan All Active Problems (Last Reviewed 03/04/20 @ 14:[address] 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 fib with RVR during scheduled visit for paracentesis. 1. A. fib with RVR with hypotension: Patient being admitted in ICU for hypotension. 2 boluses of 500 normal saline ordered by PCP. Continue IV fluid 75 mill per hour for 1 more liter. Orthostatic blood pressure tomorrow a.m. Patient has chronic hypotension secondary to cirrhosis with vasodilation. If her blood pressure remains low, can try midodrine. 03/11: Patient heart rate continues to be 120 to 135/min. Blood pressure was better than 100/75. Discussed with the bee raiser. Continue low-dose diltiazem. Digoxin 250 mcg 1 dose and continue 125 mcg from tomorrow a.m. 2. OSULLIVAN treated cirrhosis: Interventional radiologist did not find significant ascites for paracentesis. Does not have leg edema. 3. Right large pleural effusion: Chest x-ray shows large right pleural effusion with compressive atelectasis of right lower lobe. Discussed with interventional radiologist Dr. Richard and scheduled for thoracocentesis tomorrow a.m. if patient is hemodynamically stable. Hold Eliquis. 03/19: Plan for ultrasound-guided thoracocentesis. 4. Chronic kidney disease, stage III: Patient was recently admitted for acute kidney injury with hyperkalemia: Potassium normal. BUN 39. Creatinine 1.19. Patient is off Lasix, spironolactone and Entresto. Advance care directive: Patient is DNR CC arrest. Inpatient E&M: 66821 Subs Hosp L3
--- NOTE | 2020-03-11 09:24 | CASEMGMT ---
RN CM Assessment Note Introduced role of CM to patient in ICU room. Patient is sitting in the chair and able to participate in assessment. Demographics, PCP verified. Patient states she is tired/fatigued, but generally independent at home. States she is using a walker for ambulatory assist, but does own ADL's. assists when needed. Denies needing any further assistance at home. -See previous outpt note by CM for details. Presentation: dizziness, palpitations. Diagnosis: Afib, RVR PCP: Dr. Po Nielson. Appointment 03/11/20 @ 0900. Specialists: Dr. Cuevas, Gastroenterology; Dr. See, Cardiology. Pt states she is compliant with f/u. Insurance: [facility] Medicare [facility]erred Pharmacy: [facility] Prescription Benefit: yes LNOK: Living Arrangements: Lives in one story home with her . Pt states though she is feeling fatigued at home, she is able to complete ADL independently. is able to assist at home. Tranportation: drives DME: walker only HHC: none SNF: none Patient DC Goals: Home DC Plan: anticipate home. PT/OT ordered and evals are pending. Will follow for dc needs. CM available for discharge planning coordination. Contact CM for any concerns/needs that may arise. Monica SRINIVASAN RN ACM
--- NOTE | 2020-03-11 10:00 | US_ITS ---
PROCEDURE: ULTRASOUND GUIDED THORACENTESIS. DATE: 03/11/2020. INDICATION: Female, 74 years old. Right pleural effusion. PHYSICIAN: Bhanu Richard M.D. PROCEDURE: The risks, benefits, and alternatives to the procedure were explained to the patient. The specific risks of bleeding, infection, and pneumothorax requiring chest tube insertion were discussed and accepted. Written informed consent was obtained. Ultrasonographic evaluation of the right lower pleural space was carried out. An adequate pocket was identified. The patient was placed in the sitting, upright position. The overlying skin was prepped and draped in sterile fashion. 1% lidocaine was administered subcutaneously for local anesthesia. Under ultrasound guidance, a 5 Salvadorean thoracentesis needle/catheter system was advanced into the right posterior lower pleural fluid collection. Approximately 2000 mL of yoshi-colored fluid was drained. The catheter was removed, and a sterile dressing was applied. A specimen was collected and sent to the laboratory for analysis, as requested by the referring clinician. The patient tolerated the procedure well. A chest x-ray was ordered. US/Thoracentesis W US IMPRESSION: Ultrasound-guided right thoracentesis. Electronically Signed: Bhanu Richard, at 15:07 EST , Service support ,
--- NOTE | 2020-03-11 10:17 | PN.CARD_ITS ---
Subjectve: The patient is awake and alert. She denies any ongoing chest discomfort. She does comment on feeling somewhat more short of breath and dyspneic this day. He does not seem to sense her underlying cardiac rhythm/palpitations at this time. Objective: Vital Signs Temp Pulse Resp BP Pulse Ox 98.1 F 124 H 18 107/79 92 03/11/20 10:00 03/11/20 10:00 03/11/20 10:00 03/11/20 10:00 03/11/20 10:00 Oxygen Flow Rate (L/min) 2 Oxygen Delivery Method Room Air Weight: 142 lb 6.698 oz Body Mass Index (BMI) 22.1 Intake and Output for Last 24 Hours 03/09/20 03/10/20 03/11/20 23:59 23:59 23:59 Intake Total 1689.17 / 1689.17 930 / 930 Output Total 350 / 350 125 / 125 Balance 1339.17 / 1339.17 805 / 805 General: Awake, Alert, Oriented x 3, Cooperative, No Acute Distress HEENT: Atraumatic, Normocephalic, PERRL, EOMI, Sclera Non Icteric Neck: Supple, Good ROM, No JVD Lungs: Diminished Right Base Cardiovascular: Irregular Rhythm, Normal S1, Normal S2 Abdomen: Bowel Sounds Present, Soft Extremities: No edema Neurological: No Focal Motor or Sensory Deficit Psych/Mental Status: Appropriate 03/10/20 10:32: WBC 7.3, RBC 3.65 L, Hgb 12.0, Hct 35.5 L, MCV 97.3, MCH 32.9 H, MCHC 33.8, Plt Count 148 L, MPV 11.1, Immature Gran % (Auto) 0.400, Neut % (Auto) 63.9, Lymph % (Auto) 21.1, [place] % (Auto) 12.0 H, Eos % (Auto) 1.9, Baso % (Auto) 0.7, Absolute Neuts (auto) 4.7, Nucleated RBC % 0 03/10/20 10:32: Sodium 138, Potassium 4.2, Chloride 109 H, Carbon Dioxide 22.0, Anion Gap 7, BUN 39 H, Creatinine 1.19 H, Est GFR (MDRD) Af Amer 57 L, Est GFR (MDRD) Non-Af 47 L, BUN/Creatinine Ratio 32.8 H, Glucose 104, Calcium 8.5, Troponin I < 0.015 03/10/20 15:00: Magnesium 1.7 03/10/20 15:00: Troponin I 0.015 03/10/20 19:55: Troponin I < 0.015 03/11/20 03:40: WBC 7.0, RBC 3.21 L, Hgb 10.8 L, Hct 31.3 L, MCV 97.5, MCH 33.6 H, MCHC 34.5, Plt Count 130 L, MPV 10.6, Immature Gran % (Auto) 0.300, Neut % ( Auto) 66.2, Lymph % (Auto) 17.9 L, [place] % (Auto) 13.1 H, Eos % (Auto) 2.1, Baso % (Auto) 0.4, Absolute Neuts (auto) 4.7, Nucleated RBC % 0 03/11/20 03:40: Sodium 139, Potassium 4.1, Chloride 114 H, Carbon Dioxide 20.0 L , Anion Gap 5, BUN 30 H, Creatinine 0.85, Est GFR (MDRD) Af Amer 84, Est GFR (MDRD) Non-Af 70, BUN/Creatinine Ratio 35.2 H, Glucose 85, Calcium 7.1 L, Total Bilirubin 1.00, Direct Bilirubin 0.57 H, Triglycerides 67, Cholesterol 107, LDL Cholesterol 73, VLDL Cholesterol 13, HDL Cholesterol 21 L 03/11/20 03:40: B-Natriuretic Peptide 704.4 H Rhythm: Atrial fibrillation with underlying IVCD Echocardiogram: Interpretation Summary The study was technically difficult. Left ventricular systolic function is normal. The estimated ejection fraction is 65 %. Septal motion consistent with IVCD. The left atrium is mildly enlarged. Hypermobile atrial septum. Mild-Moderate (1-2+) eccentric mitral valve insufficiency. Moderate (2+) eccentric tricuspid valve insufficiency. Trivial pulmonic valve insufficiency. Echo lucency compatible with a large pleural effusion with associated 2D echocardiographic images potentially compatible with lung tissue versus fibrinous strands/material. Right ventricular systolic pressure estimated to be 44 mmHg. Unable to assess diastolic dysfunction. Bubble contrast study negative for right to left interatrial shunt. Medical Necessity - Tobacco Use Smoking Status: Never smoker Tobacco Use: Non-smoker Assessment/Plan 1. Atrial fibrillation The patient remains in atrial fibrillation. She will continue rate control therapy. This will include an attempt at using digitalis to hopefully avoid other agents such as beta-blockers or calcium channel antagonist which may exacerbate her concerns of underlying hypotension. Her anticoagulant therapy is on hold secondary to her other issues requiring concerns such as paracentesis and thoracentesis. 2. Hypotension The patient's blood pressure has improved with IV fluids. She is also being started on Midodrine by internal medicine. Again an attempt will be made to avoid agents that may lower her blood pressure. 3. Pleural effusion She is being evaluated for a thoracentesis today. 4. Cirrhosis The patient has had cirrhosis. She has had recurrent ascites. She has gone through multiple paracentesis procedures. 5. Hyperlipidemia She will continue medical therapy as she is able. The patient's case was discussed and reviewed with the patient and Dr. Carter from the [facility] hospitalist group. This note was generated using a voice recognition system and there may be incorrect words, spelling or punctuation that were not noted when reviewing the office note prior to saving.
[2020-03-11] MEDS: Digoxin 250 MCG/ML Ampul IV (11:23)
--- NOTE | 2020-03-11 12:04 | CASEMGMT ---
SW did attempt to see pt however she is sleeping at present, as per RN she did not sleep last night. SW will see pt today as time allows. DIANA Musa
[2020-03-11 13:13] LABS: Cytology, Body Fluid / CSF SEE PATHOLOGY REPORT
--- NOTE | 2020-03-11 13:20 | RAD_ITS ---
STUDY: X-RAY CHEST REASON FOR EXAM: Female, 74 years old. Post thora, right side TECHNIQUE: AP inspiration and expiration views. COMPARISON: Comparison is made with prior study dated 03/10/2020. FINDINGS: The patient is status post right thoracentesis. There is no evidence of pneumothorax. Persistent pleural-parenchymal changes in the right hemithorax. RAD/Chest Insp/Exp 2 View IMPRESSION: Status post right thoracentesis. There is no evidence of pneumothorax. Electronically Signed: Bhanu Richard, at 15:08 EST , Service support ,
[2020-03-11 13:34] LABS: Body Fluid Mononuclear WBC # 0.143 10^3/uL; Body Fluid Mononuclear WBC % 81.7 %; Body Fluid Polynuclear WBC # 0.032 10^3/uL; Body Fluid Polynuclear WBC % 18.3 %; Red Cell Count/Body Fluid 0.003 10^6/ul; White Blood Count/Body Fluid 0.175 10^3/uL
[2020-03-11 13:36] LABS: Appearance/Body Fluid CLOUDY; Auto B Fluid Analyzer BKGD Ct COUNTS W/IN LIMITS (W/IN LIMITS); Color/Body Fluid YELLOW; Source- Body Fluid THORACENTESIS
[2020-03-11 13:57] LABS: Glucose, Body Fluid 110 mg/dL (40-70); LDH,Body Fluid 42 Units/l (Not Establ.); Protein, Body Fluid 1.6 g/dL (Not Establ.)
[2020-03-11 14:16] LABS: Lymphocytes 40 %; Macrophages 33 %; Monocytes 3 %; Neutrophil (Segs) 24 %
[2020-03-11] MEDS: Ezetimibe 10 MG Tablet PO (17:40)
[2020-03-12] VITALS (21 sets, daily range): BP systolic 102–126; BP diastolic 65–95; PULSE 77–144; RESP 16–34; TEMP 36.4–36.8; O2SAT 91–98
[2020-03-12] MEDS: Midodrine HCl 5 MG Tablet 10 MG PO ×3 (06:37→21:42)
--- NOTE | 2020-03-12 07:47 | PCM.PN.HOSP ---
Patient Problems: Active and Suspected Problems (Last Reviewed 03/04/20 @ 14:[address] Roderick De Los Santos, DO) Atrial fibrillation with RVR (Acute) Reason for Visit: Follow-up for A. fib with RVR, large right pleural effusion, hepatic hydrothorax with Alexander cirrhosis. Objective: Patient's heart rate is still not controlled fluctuates between 105-144. Most recent 81/min. Patient had 2 L of yoshi-colored ultrasound-guided thoracocentesis on 03/11. Discussed with the interventional radiologist on 03/11. Patient still looks short of breath, dyspneic but she states he feels better. No chest pain or pressure. Discussed with the mold stripper. Repeat chest x-ray PA and lateral reviewed and shows right lung whiteout. Discussed with command post superintendent needs repeat thoracocentesis. Further I talked with Dr. Arriola and is scheduled for repeat thoracocentesis in afternoon. Patient converted to sinus rhythm last night. Repeat twelve-lead EKG reviewed, sinus rhythm with left bundle branch block. Physical exam General: Alert, Oriented x3, Cooperative, mild short of breath HEENT: Atraumatic, PERRLA, EOMI, Normocephalic Oral: No Gingival or Mucosal Lesions/ Ulcerations Neck: Supple, No JVD, Negative Carotid Bruits Lungs: Air entry grossly diminished in right lung. No crepitation/rhonchi Cardiovascular: Sinus rhythm, hall monitor PVCs. Normal S1, Normal S2, No murmurs Abdomen: Bowel Sounds Present, Soft, Non Tender, Non-Distended. No clinically shifting dullness. : No renal angle tenderness. No suprapubic tenderness. Extremities: No edema, Capillary Refill Less than 3 Seconds Skin: No rashes, No breakdown Musculoskeletal: No Tenderness to Palpation of Joints or Extremities Neurological: Cranial nerves II-XII grossly intact, Deep Tendon Reflexes 2+/4 and Symmetrical, Neuro grossly intact Psych/Mental Status: Normal Affect, Appropriate. Vitals/I&O's: Vital Signs Temp Pulse Resp BP Pulse Ox 98.2 F 81 20 H 103/79 98 03/12/20 04:00 03/12/20 06:00 03/12/20 06:00 03/12/20 06:00 03/12/20 06:00 Oxygen Flow Rate (L/min) [5] 2 Oxygen Flow Rate (L/min) [4] 2 Oxygen Flow Rate (L/min) [3] 2 Oxygen Flow Rate (L/min) [2] 2 Oxygen Flow Rate (L/min) [1 ( 2 Initial Baseline)] Oxygen Flow Rate (L/min) 3 Oxygen Delivery Method [5] Nasal Cannula Oxygen Delivery Method [4] Nasal Cannula Oxygen Delivery Method [3] Nasal Cannula Oxygen Delivery Method [2] Nasal Cannula Oxygen Delivery Method [1 ( Nasal Cannula Initial Baseline)] Oxygen Delivery Method Nasal Cannula Weight: 137 lb 6 oz Body Mass Index (BMI) 22.1 Intake and Output for Last 24 Hours 03/10/20 03/11/20 03/12/20 23:59 23:59 23:59 Intake Total 1689.17 / 1689.17 1803.33 / 1803.33 Output Total 350 / 350 2130 / 2330 400 / 400 Balance 1339.17 / 1339.17 -326.67 / -526.67 -400 / -400 Microbiology Past 72 Hours 03/11/20 Unknown Fluid - Thoracentesis Fluid Gram Stain - Final Laboratory Results 03/11/20 : Fluid Glucose 110 H, Fluid Total Protein 1.6, Fluid LDH 42 03/11/20 : Fluid pH Pending 03/11/20 : Fluid Source THORACENTESIS, Fluid Color YELLOW, Fluid Appearance CLOUDY, Fluid WBC 0.175, Fluid RBC 0.003, Fluid Tot Cell Count 0.190 H, Fld Polynuclear WBCs # 0.032, Fld Polynuclear WBCs % 18.3, Fluid Mononuclear WBCs 0.143, Fld Mononuclear WBCs % 81.7, Fluid Neutrophils 24, Fluid Lymphocytes 40, Fluid Monocytes 3, Fluid Macrophages 33, Fl Pathologist Comment May follow, Fluid Comment 2 SEE COMMENT 03/11/20 : Miscellaneous Cytology Pending Current Medications Acetaminophen (Acetaminophen 325 Mg Tablet) 650 mg PO Q6H PRN PRN PRN Reason: Pain Score 1-10/Temp > 100.7 F Aspirin (Aspirin E.C. 81 Mg Tablet) 81 mg PO DAILY@0800 [facility] Last Admin: 03/11/20 10:45 Dose: Not Given Documented by: Digoxin (Digoxin 125 Mcg Tablet) 125 mcg PO DAILY [facility] Ezetimibe (Ezetimibe 10 Mg Tablet) 10 mg PO DINNER [facility] Last Admin: 03/11/20 17:40 Dose: 10 mg Documented by: Midodrine (Midodrine Hcl 5 Mg Tablet) 10 mg PO TID [facility] Last Admin: 03/12/20 06:37 Dose: 10 mg Documented by: Morphine Sulfate (Morphine 2 Mg/Ml Syringe) 2 mg IV Q3H PRN PRN PRN Reason: Pain Score 6-10 Nitroglycerin (Nitroglycerin (Inpatient Use) 0.4 Mg Tab.Subl) 0.4 mg SUBLINGUAL Q5M PRN PRN Reason: CARDIAC/CHEST PAIN Nutritional Formula (Lactose Free) (Ensure Enlive 120 Ml Liquid) 120 ml PO 4X/DAY [facility] Last Admin: 03/11/20 22:55 Dose: 120 ml Documented by: Oxycodone HCl (Oxycodone 5 Mg Tablet) 5 mg PO Q4H PRN PRN PRN Reason: Pain Score 4-5 Prochlorperazine Edisylate (Prochlorperazine 10 Mg/2 Ml Vial) 5 mg IV Q4H PRN PRN PRN Reason: Breakthrough Nausea/Vomiting Senna/Docusate Sodium (Senna/Docusate Sodium 1 Tablet) 2 tablet PO BID PRN PRN Reason: Constipation STROKE Vital Signs/Narrative: Vital Signs Temp Pulse Resp BP Pulse Ox 03/12/20 06:00 81 20 H 103/79 98 03/12/20 05:00 105 H 28 H 113/80 92 03/12/20 04:00 98.2 F 119 H 24 H 116/86 H 96 Medical Necessity - Tobacco Use Smoking Status: Never smoker Tobacco Use: Non-smoker Assessment/Plan All Active Problems (Last Reviewed 03/04/20 @ 14:[address] Roderick De Los Santos, DO) Atrial fibrillation with RVR (Acute) This 74-year-old female with history of possible Alexander cirrhosis was found to be A. fib with RVR during scheduled visit for paracentesis. 1. A. fib with RVR with hypotension: Patient being admitted in ICU for hypotension. 2 boluses of 500 normal saline ordered by PCP. Continue IV fluid 75 mill per hour for 1 more liter. Orthostatic blood pressure tomorrow a.m. Patient has chronic hypotension secondary to cirrhosis with vasodilation. If her blood pressure remains low, can try midodrine. 03/11: Patient heart rate continues to be 120 to 135/min. Blood pressure was better than 100/75. Discussed with the mold stripper. Continue low-dose diltiazem. Digoxin 250 mcg 1 dose and continue 125 mcg from tomorrow a.m. 03/12: Patient converted to sinus rhythm last night. Continue digoxin 125 mcg daily. On midodrine for low blood pressure and his blood pressure improved. 2. ALEXANDER treated cirrhosis: Interventional radiologist did not find significant ascites for paracentesis. Does not have leg edema. 3. 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 Discussed with interventional radiologist Dr. Richard and scheduled for thoracocentesis tomorrow a.m. if patient is hemodynamically stable. Hold Eliquis. 03/19: Plan for ultrasound-guided thoracocentesis. 03/20: Patient had 2 L of thoracocentesis yesterday. Patient pleural effusion reaccumulated and chest x-ray PA and lateral reviewed. It looks worse with right lung opacity. Discussed with the command post superintendent. Advised repeat thoracocentesis and vest. Discussed with the mold stripper. Patient further refills pleural effusion, will need Pleurx catheter. This was discussed with the patient. 4. Chronic kidney disease, stage III: Patient was recently admitted for acute kidney injury with hyperkalemia: Potassium normal. BUN 39. Creatinine 1.19. Patient is off Lasix, spironolactone and Entresto. Advance care directive: Patient is DNR CC arrest. Total time of the visit including total time spent in counseling or coordination of care, (more than 50% of the total time, spent in obtaining medical information from nurses and other ancillary care providers,explaining to the patient about labs, imaging, diagnosis and management), discussion with consultants, mold stripper command post superintendent and interventional radiologist, review of labs and imaging is 30 minutes. Inpatient E&M: [id number] [facility] L3
--- NOTE | 2020-03-12 08:16 | PN.CARD_ITS ---
Subjectve: The patient states she feels somewhat better today with respect to her breathing, although, she knows she is still somewhat short of breath and dyspne ic. Objective: Vital Signs Temp Pulse Resp BP Pulse Ox 98.2 F 81 20 H 103/79 98 03/12/20 04:00 03/12/20 06:00 03/12/20 06:00 03/12/20 06:00 03/12/20 06:00 Oxygen Flow Rate (L/min) [5] 2 Oxygen Flow Rate (L/min) [4] 2 Oxygen Flow Rate (L/min) [3] 2 Oxygen Flow Rate (L/min) [2] 2 Oxygen Flow Rate (L/min) [1 ( 2 Initial Baseline)] Oxygen Flow Rate (L/min) 3 Oxygen Delivery Method [5] Nasal Cannula Oxygen Delivery Method [4] Nasal Cannula Oxygen Delivery Method [3] Nasal Cannula Oxygen Delivery Method [2] Nasal Cannula Oxygen Delivery Method [1 ( Nasal Cannula Initial Baseline)] Oxygen Delivery Method Nasal Cannula Weight: 137 lb 6 oz Body Mass Index (BMI) 22.1 Intake and Output for Last 24 Hours 03/10/20 03/11/20 03/12/20 23:59 23:59 23:59 Intake Total 1689.17 / 1689.17 1803.33 / 1803.33 Output Total 350 / 350 2130 / 2330 400 / 400 Balance 1339.17 / 1339.17 -326.67 / -526.67 -400 / -400 General: Awake, Alert, Oriented x 3, Cooperative, No Acute Distress HEENT: Atraumatic, Normocephalic, PERRL, EOMI, Sclera Non Icteric Neck: Supple, Good ROM, No JVD Lungs: Diminished Right Base Cardiovascular: Regular Rhythm, Normal S1, Normal S2 Abdomen: Bowel Sounds Present, Soft Extremities: No edema Neurological: No Focal Motor or Sensory Deficit Psych/Mental Status: Appropriate Rhythm: Sinus rhythm Medical Necessity - Tobacco Use Smoking Status: Never smoker Tobacco Use: Non-smoker Assessment/Plan 1. Atrial fibrillation The patient remains in atrial fibrillation. She will continue rate control therapy. At the present time she will continue with rate control therapy with digitalis in the hopes of avoiding other medications that may lower her blood pressure especially noting that she is requiring medication to assist in keeping her blood pressure up/within an acceptable range. Her anticoagulant therapy is on hold secondary to her other issues requiring concerns such as paracentesis and thoracentesis. 2. Hypotension The patient's blood pressure has improved with IV fluids. She is also being started on Midodrine by internal medicine. Again an attempt will be made to avoid agents that may lower her blood pressure. 3. Pleural effusion She underwent a thoracentesis. She had approximately 2 L of yoshi-colored fluid removed. She will be asked to have a chest x-ray this day to reassess her pleural fluid as to whether or not she requires any additional thoracentesis procedures. 4. Cirrhosis The patient has had cirrhosis. She has had recurrent ascites. She has gone through multiple paracentesis procedures. 5. Hyperlipidemia She will continue medical therapy as she is able. This note was generated using a voice recognition system and there may be incorrect words, spelling or punctuation that were not noted when reviewing the office note prior to saving.
--- NOTE | 2020-03-12 08:38 | RAD_ITS ---
STUDY: X-RAY CHEST REASON FOR EXAM: Female, 74 years old. Pleural Effusion TECHNIQUE: PA and lateral views of the chest. COMPARISON: Comparison is made with prior study dated 03/11/2020. FINDINGS: EKG electrodes are seen. There now is evidence of complete opacification of the right hemithorax. This is suspicious for a large right pleural effusion. There is blunting of the left costophrenic angle. Normal size heart. Normal mediastinum and kamron. Normal visualized pulmonary arteries. Normal visualized aortic arch and descending thoracic aorta. Normal visualized thoracic spine. Normal visualized ribs, clavicles, and shoulders. There is no demonstrated abnormality of the visualized soft tissue structures of the upper abdomen. RAD/Chest PA and Lateral IMPRESSION: Complete opacification of the right hemithorax suggestive of a large right pleural effusion. Blunting of left costophrenic angle. Electronically Signed: Bhanu Richard, at 9:52 EST , Service support ,
--- NOTE | 2020-03-12 09:25 | US_ITS ---
PROCEDURE: ULTRASOUND GUIDED THORACENTESIS. DATE: 03/12/2020. INDICATION: Female, 74 years old. Right pleural effusion. PHYSICIAN: Bhanu Richard M.D. PROCEDURE: The risks, benefits, and alternatives to the procedure were explained to the patient. The specific risks of bleeding, infection, and pneumothorax requiring chest tube insertion were discussed and accepted. Written informed consent was obtained. Ultrasonographic evaluation of the right lower pleural space was carried out. An adequate pocket was identified. The patient was placed in the sitting, upright position. The overlying skin was prepped and draped in sterile fashion. 1% lidocaine was administered subcutaneously for local anesthesia. Under ultrasound guidance, a 5 [place] thoracentesis needle/catheter system was advanced into the right posterior lower pleural fluid collection. Approximately 2500 mL of yoshi-colored fluid was drained. The catheter was removed, and a sterile dressing was applied. The patient tolerated the procedure well. A chest x-ray was ordered. US/Thoracentesis W US IMPRESSION: Ultrasound-guided right thoracentesis. Electronically Signed: Bhanu Richard, at 14:41 EST , Service support ,
[2020-03-12] MEDS: Aspirin E.C. 81 MG Tablet PO (09:27)
[2020-03-12] MEDS: Digoxin 125 MCG Tablet PO (09:27)
[2020-03-12 10:13] LABS: Anion Gap 7 (5-15); BUN 33 mg/dL (7-18); BUN/Creat Ratio 31.1 RATIO (10-20); Calcium,Total 8.5 mg/dL (8.5-10.1); Chloride 112 mmol/L (98-107); Creatinine, Serum 1.06 mg/dL (0.55-1.02); EST Glomerular Filtration Rate 54 mL/min (>60); Est Glom Filt Rate - Afr Amer 65 mL/min (>60); Estimated Creatinine Clearance 44.91 ml/min; Glucose 107 mg/dL (74-106); Potassium 4.7 mmol/L (3.5-5.1); Sodium Level 140 mmol/L (136-145)
[2020-03-12 10:27] LABS: Digoxin Level 2.28 ng/mL (0.80-2.00)
--- NOTE | 2020-03-12 12:08 | CASEMGMT ---
Social Work SW met with pt in room and introduced self and role of SW. SW asked pt about chronic health issues and pt openly discussed medical issues and also talked about feeling down related to this. SW encouraged expression of feelings and explored support systems with pt. Pt talked about supportive and daughters as well as many friends. Pt indicating she is appreciative of prayer for her. SW informed pt that [facility] does have an employee sponsor or advocate and that can visit and pt is aware. Pt does not want an employee sponsor or advocate and visit at this time, but is agreeable once she moves to PCU. Pt inquiring about home health services upon discharge and SW explained services and that RNCM would follow up with her prior to discharge to arrange for home health if warranted. Pt also inquiring about PCP appointment on 03/14 and wondering about cancelling this. SW also spoke with pt regarding Palliative Medicine. Palliative screen completed with score of 4 indicating Palliative Referral would be appropriate. SW explained Palliative program to pt and pt is agreeable for referral and to talk to someone from Palliative for more information. FELIX Sanders updated on pt inquiry about home health and questions about PCP appointment. Referral made to [employer] W[employer] Technician, pt requesting to be seen once she leaves the ICU. Physician notified of Palliative Medicine Screen and pt desire for Palliative medicine referral. ARVIND Heard
--- NOTE | 2020-03-12 12:24 | CASEMGMT ---
YAN ROTH NOTE: Per EUNICE Witt, pt inquiring about her appt with Dr Maldonado that is scheduled for Fri. and also that pt states is interested in HHC. YAN ROTH to room to talk with pt. Discussed appt with Dr Maldonado. [place], Susanne, to cancel appt with Dr Maldonado for this Fri and will call to reschedule another appt for next week. Pt agreeable to this plan. Discussed HHC and homebound requirements. Pt states she uses a walker @ baseline and usually does not go anywhere but doctor appts. She states has been more fatigued and tired and she feels she will be homebound for awhile after returning home. Pt provided w/list of local HHC agencies w/quality performance measures listed. She states she wants to talk with her 1st before making a decision. Lonny SRINIVASAN RN, CM
[2020-03-12 13:10] LABS: Pathologist Comment/Body Fluid Reviewed
--- NOTE | 2020-03-12 14:00 | RAD_ITS ---
STUDY: X-RAY CHEST REASON FOR EXAM: Female, 74 years old. POST THORA TECHNIQUE: AP inspiration and expiration views. COMPARISON: Comparison is made with prior examination done earlier in the day. FINDINGS: The patient is status post right thoracentesis. No evidence of a pneumothorax. Residual pleural parenchymal changes at the right lung base. RAD/Chest Insp/Exp 2 View IMPRESSION: Status post right thoracentesis. No evidence of pneumothorax. Electronically Signed: Bhanu Richard, at 14:30 EST , Service support ,
[2020-03-12] MEDS: Lidocaine 2% (20 ml mdv) 20 ML Vial (14:50)
--- NOTE | 2020-03-12 15:35 | CPS ---
Patient off unit for a thoracentesis. PEP therapy/Vest therapy not started.
--- NOTE | 2020-03-12 16:37 | CHAPLAIN ---
Type of Pastoral Visit _x__ Initial Visit ___ Follow-up Visit ___ On-call Visit ___ General Patient Visit ___ Spiritual Assessment ___ Family Conference ___ Bereavement ___ Rapid Response ___ Code Blue ___ Other (describe below) Pastoral Care Referral From _x__ Patient ___ Family ___ Nurse ___ Physician _x__ Soup Person ___ Screen Repairer Crusher ___ Other (describe below) Sacrament/Intervention _x__ Active listening ___ Anointing ___ Denominational ___ Bereavement ___ Communion ___ Mimi exploration ___ ___ Life review _x__ Prayer ___ Reconciliation ___ Sacrament of Sick _x__ Supportive presence ___ Wedding ___ Other (describe below) Pastoral Comments made visit to this patient per referral from SW and patient herself; also made contact with this patient on her previous admission; pt is open and talkative; spouse is with her at this time; pt expresses that many people are praying for her and that her request is that the fluid will stay off and I can get better; pt has not been active in a tenriism in recent years but open to spiritual and emotional support from php web developer; pt states that spouse has been very supportive;
[2020-03-12] MEDS: Ezetimibe 10 MG Tablet PO (17:08)
[2020-03-13] VITALS (7 sets, daily range): BP systolic 103–114; BP diastolic 60–70; PULSE 66–78; RESP 16–18; TEMP 36.4–37.1; O2SAT 93–96
[2020-03-13] MEDS: Midodrine HCl 5 MG Tablet 10 MG PO ×2 (03:51→14:25)
--- NOTE | 2020-03-13 07:58 | RAD_ITS ---
STUDY: X-RAY CHEST REASON FOR EXAM: Female, 74 years old. Pleural Effusion. TECHNIQUE: AP and lateral views of the chest. COMPARISON: Comparison is made with prior study dated 03/12/2020. FINDINGS: EKG electrodes are seen. Essentially stable right pleural effusion with right basilar atelectasis. Stable blunting of the left costophrenic angle with mild increased markings at the left lung base. Normal size heart. Normal mediastinum and kamron. Normal visualized pulmonary arteries. Normal visualized aortic arch and descending thoracic aorta. Normal visualized thoracic spine. Normal visualized ribs, clavicles, and shoulders. There is no demonstrated abnormality of the visualized soft tissue structures of the upper abdomen. RAD/Chest PA and Lateral IMPRESSION: Stable examination. Electronically Signed: Bhanu Richard, at 9:11 EST , Service support ,
--- NOTE | 2020-03-13 07:59 | PCM.PN.CARD ---
Subjectve: The patient is awake and alert. She states she does feel somewhat better today after her second thoracentesis. Objective: Vital Signs Temp Pulse Resp BP Pulse Ox 98.4 F 66 16 103/60 95 03/13/20 03:45 03/13/20 07:00 03/13/20 03:45 03/13/20 03:45 03/13/20 07:21 Oxygen Flow Rate (L/min) [5] 2 Oxygen Flow Rate (L/min) [4] 2 Oxygen Flow Rate (L/min) [3] 2 Oxygen Flow Rate (L/min) [2] 2 Oxygen Flow Rate (L/min) [1 ( 2 Initial Baseline)] Oxygen Flow Rate (L/min) 2 Oxygen Delivery Method [5] Nasal Cannula Oxygen Delivery Method [4] Nasal Cannula Oxygen Delivery Method [3] Nasal Cannula Oxygen Delivery Method [2] Room Air Oxygen Delivery Method [1 ( Room Air Initial Baseline)] Oxygen Delivery Method Nasal Cannula Weight: 130 lb 11.746 oz Body Mass Index (BMI) 22.1 Intake and Output for Last 24 Hours 03/11/20 03/12/20 03/13/20 23:59 23:59 23:59 Intake Total 1803.33 / 1803.33 120 / 360 360 / 360 Output Total 2130 / 2330 3050 / 3350 300 / 300 Balance -326.67 / -526.67 -2930 / -2990 60 / 60 General: Awake, Alert, Oriented x 3, Cooperative, No Acute Distress HEENT: Atraumatic, Normocephalic, PERRL, EOMI, Sclera Non Icteric Neck: Supple, Good ROM, No JVD Lungs: Diminished Right Base Cardiovascular: Regular Rhythm, Premature Ectopic Beats, Normal S1, Normal S2 Abdomen: Bowel Sounds Present, Soft Extremities: No edema Neurological: No Focal Motor or Sensory Deficit Psych/Mental Status: Appropriate 03/12/20 09:30: Sodium 140, Potassium 4.7, Chloride 112 H, Carbon Dioxide 21.0, Anion Gap 7, BUN 33 H, Creatinine 1.06 H, Est GFR (MDRD) Af Amer 65, Est GFR (MDRD) Non-Af 54 L, BUN/Creatinine Ratio 31.1 H, Glucose 107 H, Calcium 8.5 03/12/20 09:30: Digoxin 2.28 H* Rhythm: Sinus rhythm Medical Necessity - Tobacco Use Smoking Status: Never smoker Tobacco Use: Non-smoker Assessment/Plan 1. Atrial fibrillation The patient remains in atrial fibrillation. She will continue rate control therapy. At the present time she will continue medical therapy with her digitalis with adjustment based upon her renal function and digitalis levels, etc. Her anticoagulant therapy is on hold secondary to her other issues requiring concerns such as paracentesis and thoracentesis. 2. Hypotension The patient's blood pressure has improved status post her medical management with her previous IV fluids in addition of Midodrine therapy. 3. Pleural effusion She underwent a repeat thoracentesis yesterday based upon the appearance of recurrent right-sided pleural effusion. On examination today she still appears to be diminished, with respect to her pulmonary examination, on the right side. She will be asked to have a chest x-ray this day to reassess her pleural fluid as to whether or not she requires any additional thoracentesis procedures. If she continues with right-sided pleural effusion requiring recurrent thoracentesis then she may need to be considered from a surgical standpoint for alternative methods of caring for her right-sided pleural effusion. 4. Cirrhosis The patient has had cirrhosis. She has had recurrent ascites. She has gone through multiple paracentesis procedures. 5. Hyperlipidemia She will continue medical therapy as she is able. Comment: The patient's case has been previously discussed with Dr. Carter. This note was generated using a voice recognition system and there may be incorrect words, spelling or punctuation that were not noted when reviewing the office note prior to saving.
[2020-03-13] MEDS: Aspirin E.C. 81 MG Tablet PO (08:59)
[2020-03-13 09:19] LABS: Anion Gap 5 (5-15); BUN 37 mg/dL (7-18); BUN/Creat Ratio 37.8 RATIO (10-20); Calcium,Total 8.6 mg/dL (8.5-10.1); Chloride 112 mmol/L (98-107); Creatinine, Serum 0.98 mg/dL (0.55-1.02); EST Glomerular Filtration Rate 59 mL/min (>60); Est Glom Filt Rate - Afr Amer 72 mL/min (>60); Estimated Creatinine Clearance 48.58 ml/min; Glucose 85 mg/dL (74-106); Potassium 4.4 mmol/L (3.5-5.1); Sodium Level 139 mmol/L (136-145)
--- NOTE | 2020-03-13 10:08 | CASEMGMT ---
life insurance actuary faxed referral for Palliative Care. SW called [facility] and spoke with Carin. She said the program where the Nurse Practitioner comes to the hospital to see the patient is not up and running yet. Referral was faxed so they will follow up with patient as an outpatient. Suzanne GARCIA CLEARANCE DIVER
--- NOTE | 2020-03-13 11:14 | DCINST_ITS ---
- Discharge Diagnoses Current Active Problems: Current Active and Chronic Problems (Last Reviewed 03/04/20 @ 14:[address] Roderick De Los Santos, DO) Atrial fibrillation with RVR (Acute) Ascites (Chronic) Dr. Cuevas is doing paracentesis on 02/06/20 Non-alcoholic cirrhosis (Chronic) Essential hypertension (Chronic) LBBB (left bundle branch block) (Chronic) Paroxysmal atrial flutter (Chronic) Paroxysmal atrial fibrillation (Chronic) Hyperlipidemia (Chronic) Type 2 diabetes mellitus without complication (Chronic) You will use the following diet at home:: Cardiac, Fluid restricted (specify 2000 mls, 1500 mls) - 1500 mils per day. 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 Your food should be the consistency of: Regular Your liquids should be the consistency of: Regular/Thin Discharge Activity: May Not Drive Weight Bearing Status: Weight bearing as tolerated Call your doctor if you observe: Fever of 101 or Higher, Coldness, Increased Pain, Change in Color, Inability to urinate, Inability to have a bowel movement, Shortness of breath, Dizziness, Fainting spells, Swelling in the ankles, Prolonged hiccoughing, Increased palpitations (irregular heartbeat), Calf discomfort, Uncontrolled pain Additional Instructions: Paracentesis or thoracocentesis every 2 weeks with interventional radiologist, Dr. Arriola. Advised to do blood work BMP, magnesium and digoxin on 03/17/2020 follow-up with Dr. See. Prescription for blood work given. Baby aspirin was discontinued as patient is on Eliquis to avoid high risk of bleeding. Follow-up with palliative care at home. Allergies/Adverse Reactions: Allergies Wunjnga-Zgk-Peo Reductase Inhibitor Allergy (Intermediate, Verified 03/04/20 12:10) elevated liver enzymes Sulfa (Sulfonamide Antibiotics) Adverse Reaction (Intermediate, Verified 03/04/20 14:48) Nausea Medications to take at Discharge apixaban 5 mg tablet 5 mg PO BID #180 tab 12/17/19 Ezetimibe [Zetia] 10 mg PO DINNER 03/04/20 Digoxin [Digitek] 125 mcg PO DAILY #30 tab 03/13/20 Furosemide [Lasix] 40 mg PO DAILY #60 tab 03/13/20 Midodrine HCl [Proamatine] 10 mg PO TID #90 tab 03/13/20 The following prescriptions were given: Digoxin [Digitek] 125 mcg PO DAILY #30 tab Transmission Status: Pending to [id number] Furosemide [Lasix] 40 mg PO DAILY #60 tab Midodrine HCl [Proamatine] 10 mg PO TID #90 tab Transmission Status: Pending to [id number] Orders to be completed after discharge: Basic Metabolic Profile (BMP) Time Frame: 03/17/20, Location: Laboratory Digoxin Level Time Frame: 03/17/20, Facility: [facility], Location: Laboratory Magnesium Time Frame: 03/17/20, Facility: [facility], Location: Laboratory Primary Care Physician: Po Maldonado MD [Primary Care Provider] - Test Results: Test results from this visit will be discussed in further detail at your follow- up appointment, if applicable. Please Follow Up With: Po Maldonado MD When: Tuesday Please Follow Up With: Yong See MD When: in 2-3 weeks
--- NOTE | 2020-03-13 11:16 | PCM.DC.SUM ---
Discharge Date and Diagnosis - Problem List Patient Problems: Active and Suspected Problems (Last Reviewed 03/04/20 @ 14:[address] Roderick De Los Santos DO) Atrial fibrillation with RVR (Acute) Date of Admission: 03/10/20 Date of Discharge: 03/13/20 - Primary Discharge Diagnosis Acute Problems: Active Problems (Last Reviewed 03/04/20 @ 14:[address] Roderick De Los Santos DO) Atrial fibrillation with RVR (Acute) - Secondary Discharge Diagnosis Chronic Problems: Chronic Problems (Last Reviewed 03/04/20 @ 14:[address] Roderick De Los Santos DO) Ascites (Chronic) Dr. Cuevas is doing paracentesis on 02/06/20 Non-alcoholic cirrhosis (Chronic) Essential hypertension (Chronic) LBBB (left bundle branch block) (Chronic) Paroxysmal atrial flutter (Chronic) Paroxysmal atrial fibrillation (Chronic) Hyperlipidemia (Chronic) Type 2 diabetes mellitus without complication (Chronic) Hospital Course and Treatment Imaging Results: 03/13/20 07:58 CXR [Chest PA and Lateral] [RAD] Routine Operations: None Summary of Care Provided: T [] This 74-year-old female with history of possible Alexander cirrhosis was found to be A. fib with RVR during scheduled visit for paracentesis. 1. A. fib with RVR with hypotension: Patient being admitted in ICU for hypotension. Patient was well resuscitated but is still blood pressure was low. Patient has chronic hypotension secondary to cirrhosis with vasodilation. Patient is started on midodrine 10 mg 3 times daily. Her blood pressure improved. Her heart rate was controlled with a loading dose of digoxin. Heart rate and blood pressure got better. Digoxin level was in high range, 2.28 and digoxin was held. Subsequently came down 1.85. Discussed with the machine plug shaper. Agreed on starting low-dose digoxin tomorrow a.m. 125 mcg daily. BMP, magnesium and digoxin level on Tuesday. Labs given to the patient. I also discussed the medication lab work with patient and her present in the room. 2. ALEXANDER treated cirrhosis decompensated with recurrent right-sided hepatic hydrothorax and ascites in the past: Interventional radiologist did not find significant ascites for paracentesis. Does not have leg edema. 3. Right large pleural effusion, hepatic hydrothorax, secondary to decompensated cirrhosis: Chest x-ray shows large right pleural effusion with compressive atelectasis of right lower lobe. Discussed with interventional radiologist Dr. Richard. Eliquis was held. Patient had total 4.5 L right-sided thoracocentesis. She wanted palliative care therefore palliative care was arranged at her home. She was tired of recurrent thoracocentesis and she values her quality of life more than medical intervention. There was an option given for Pleurx catheter if she accumulates right pleural effusion frequently. Eliquis resumed. Patient discharged on Lasix 40 mg daily with potassium supplement. Advised to discontinue baby aspirin as she is on Eliquis to avoid increased bleeding risk. She has mild thrombocytopenia, platelet count 130,000 and mild chronic normocytic normochromic anemia secondary to cirrhosis. 4. Chronic kidney disease, stage III: Patient was recently admitted for acute kidney injury with hyperkalemia: Potassium normal. BUN 39. Creatinine 1.19. Patient is off Lasix, spironolactone and Entresto. Advance care directive: Patient is DNR CC arrest. Discharge medication reconciliation done. Discharge follow-up instructions completed. Discharge process discussed with the patient and all questions were answered to patient's satisfaction. Total time spent, exact 35 minutes on discharge meds reconciliation, examination, coordination of care with nurses and ancillary staff, review of imaging and blood test and discussion with the patient on follow-up instructions Patient Problems: Active and Suspected Problems (Last Reviewed 03/04/20 @ 14:[address] Roderick De Los Satnos, DO) Atrial fibrillation with RVR (Acute) Objective: Patient had 2.5 L right-sided thoracocentesis on 03/12 and prior to that had 2 L on 03/11, therefore total 4.5 L thoracocentesis done. Repeat chest x-ray shows improvement in decrease in the right pleural effusion. Patient subjectively also feels better in shortness of breath. No chest pain Physical exam General: Alert, Oriented x3, Cooperative HEENT: Atraumatic, PERRLA, EOMI, Normocephalic Oral: No Gingival or Mucosal Lesions/ Ulcerations Neck: Supple, No JVD, Negative Carotid Bruits Lungs: Air entry diminished in right posterior lung. No crepitation/rhonchi. No dyspnea. No hypoxia Cardiovascular: Sinus rhythm. Heart rate in 60s to 70s per minute. Normal S1, Normal S2, No murmurs Abdomen: Bowel Sounds Present, Soft, Non Tender, Non-Distended. No significant ascites. : No renal angle tenderness. No suprapubic tenderness. Extremities: No ankle edema, Capillary Refill Less than 3 Seconds Skin: No rashes, No breakdown Musculoskeletal: No Tenderness to Palpation of Joints or Extremities Neurological: Cranial nerves II-XII grossly intact, Deep Tendon Reflexes 2+/4 and Symmetrical, Neuro grossly intact Psych/Mental Status: Normal Affect, Appropriate. - Physical Exam Vitals/I&O's: Vital Signs Temp Pulse Resp BP Pulse Ox 97.5 F L 77 18 114/70 94 03/13/20 08:52 03/13/20 08:52 03/13/20 08:52 03/13/20 08:52 03/13/20 08:52 Oxygen Flow Rate (L/min) [5] 2 Oxygen Flow Rate (L/min) [4] 2 Oxygen Flow Rate (L/min) [3] 2 Oxygen Flow Rate (L/min) [2] 2 Oxygen Flow Rate (L/min) [1 ( 2 Initial Baseline)] Oxygen Flow Rate (L/min) 2 Oxygen Delivery Method [5] Nasal Cannula Oxygen Delivery Method [4] Nasal Cannula Oxygen Delivery Method [3] Nasal Cannula Oxygen Delivery Method [2] Room Air Oxygen Delivery Method [1 ( Room Air Initial Baseline)] Oxygen Delivery Method Nasal Cannula Weight: 130 lb 11.746 oz Body Mass Index (BMI) 22.1 Intake and Output for Last 24 Hours 03/11/20 03/12/20 03/13/20 23:59 23:59 23:59 Intake Total 1803.33 / 1803.33 120 / 360 360 / 360 Output Total 2130 / 2330 3050 / 3350 300 / 300 Balance -326.67 / -526.67 -2930 / -2990 60 / 60 Microbiology Past 72 Hours 03/11/20 Unknown Fluid - Thoracentesis Fluid Gram Stain - Final 03/11/20 Unknown Fluid - Thoracentesis Fluid Body Fluid Culture - Preliminary No growth-Final to follow 03/11/20 Unknown Fluid - Thoracentesis Fluid Anaerobic Culture - Preliminary No growth in 48 hours. Laboratory Results 03/11/20 : Fl Pathologist Comment Reviewed 03/13/20 08:58: Sodium 139, Potassium 4.4, Chloride 112 H, Carbon Dioxide 22.0, Anion Gap 5, BUN 37 H, Creatinine 0.98, Estim Creat Clear Calc 48.58, Est GFR (MDRD) Af Amer 72, Est GFR (MDRD) Non-Af 59 L, BUN/Creatinine Ratio 37.8 H, Glucose 85, Calcium 8.6 Current Medications Acetaminophen (Acetaminophen 325 Mg Tablet) 650 mg PO Q6H PRN PRN PRN Reason: Pain Score 1-10/Temp > 100.7 F Aspirin (Aspirin E.C. 81 Mg Tablet) 81 mg PO DAILY@0800 [facility] Last Admin: 03/13/20 08:59 Dose: 81 mg Documented by: Ezetimibe (Ezetimibe 10 Mg Tablet) 10 mg PO DINNER [facility] Last Admin: 03/12/20 17:08 Dose: 10 mg Documented by: Midodrine (Midodrine Hcl 5 Mg Tablet) 10 mg PO TID [facility] Last Admin: 03/13/20 03:51 Dose: 10 mg Documented by: Morphine Sulfate (Morphine 2 Mg/Ml Syringe) 2 mg IV Q3H PRN PRN PRN Reason: Pain Score 6-10 Nitroglycerin (Nitroglycerin (Inpatient Use) 0.4 Mg Tab.Subl) 0.4 mg SUBLINGUAL Q5M PRN PRN Reason: CARDIAC/CHEST PAIN Nutritional Formula (Lactose Free) (Ensure Enlive 120 Ml Liquid) 120 ml PO 4X/DAY [facility] Last Admin: 03/13/20 09:01 Dose: 120 ml Documented by: Oxycodone HCl (Oxycodone 5 Mg Tablet) 5 mg PO Q4H PRN PRN PRN Reason: Pain Score 4-5 Prochlorperazine Edisylate (Prochlorperazine 10 Mg/2 Ml Vial) 5 mg IV Q4H PRN PRN PRN Reason: Breakthrough Nausea/Vomiting Senna/Docusate Sodium (Senna/Docusate Sodium 1 Tablet) 2 tablet PO BID PRN PRN Reason: Constipation Discharge Activity: May Not Drive Weight Bearing Status: Weight bearing as tolerated Call your doctor if you observe: Fever of 101 or Higher, Coldness, Increased Pain, Change in Color, Inability to urinate, Inability to have a bowel movement, Shortness of breath, Dizziness, Fainting spells, Swelling in the ankles, Prolonged hiccoughing, Increased palpitations (irregular heartbeat), Calf discomfort, Uncontrolled pain Home Medications: Medications to take at Discharge apixaban 5 mg tablet 5 mg PO BID #180 tab 12/17/19 Ezetimibe [Zetia] 10 mg PO DINNER 03/04/20 Digoxin [Digitek] 125 mcg PO DAILY #30 tab 03/13/20 Furosemide [Lasix] 40 mg PO DAILY #60 tab 03/13/20 Midodrine HCl [Proamatine] 10 mg PO TID #90 tab 03/13/20 Following Prescriptions Were Given to Patient: Digoxin [Digitek] 125 mcg PO DAILY #30 tab Transmission Status: Received by [id number] Furosemide [Lasix] 40 mg PO DAILY #60 tab Transmission Status: Received by [id number] Midodrine HCl [Proamatine] 10 mg PO TID #90 tab Transmission Status: Received by [id number] Other Amb Orders: Basic Metabolic Profile (BMP) Time Frame: 03/17/20, Location: Laboratory Digoxin Level Time Frame: 03/17/20, Facility: [facility], Location: Laboratory Magnesium Time Frame: 03/17/20, Facility: [facility], Location: Laboratory Primary Care Physician: Po Maldonado MD [Primary Care Provider] - Please Follow Up With: Po Maldonado MD When: Tuesday Please Follow Up With: Yong See MD When: in 2-3 weeks Medical Necessity - Tobacco Use Smoking Status: Never smoker Tobacco Use: Non-smoker Meaningful Use Info Meaningful Use Diagnoses (Choose all that apply): None applicable Inpatient E&M: [id number] [facility]
--- NOTE | 2020-03-13 12:02 | CASEMGMT ---
Addendum entered by Richa Forrester 03/13/20 13:07: Call to [facility] to see if they can accept pt at this time and after being transferred several times, left a message with intake regarding pt at this time. Referral faxed to [facility] as well at this time as pt is ready for discharge. Also, awaiting oxygen testing at this time. Tran HEREDIA CM Original Note: This RN CM to room to discuss discharge plan with pt at this time. Pt states she would like [facility] set up for SN, PT/OT and pt provided with in-network list of local [facility] agencies with medicare ratings at this time. Pt states she would like RN CM to try [facility] and/or [facility] at this time, in no particular order. Referral faxed to [facility] at this time and this RN CM will attempt to call to see if they can take pt at that time. Pt is also still on 2L nc at this time and Paul HEREDIA aware to check ambulatory pulse ox prior to discharge. Pt/ voice no further questions/concerns/needs at this time. CM to follow. Tran HEREDIA CM
[2020-03-13 12:21] LABS: Magnesium 2.4 mg/dL (1.6-2.6)
[2020-03-13 12:36] LABS: Digoxin Level 1.85 ng/mL (0.80-2.00)
--- NOTE | 2020-03-13 14:28 | CASEMGMT ---
SW went back to patient's room as their first two home health choices were not available. SW asked about other choices. They said anyone SW can find on the list that is in network is fine. They then mentioned the one in [place] which is [facility]. EUNICE told them we will continue to work on setting up home health. EUNICE called [facility] and spoke with Martha. She told SW to fax the referral. EUNICE faxed referral to [phone]. Await their response. Suzanne GARCIA [employer] [facility]
--- NOTE | 2020-03-13 14:57 | PHA.DC.MC ---
Pharmacy Service has performed discharge medication reconciliation and counseling for this patient. 1. DIGOXIN 125MCG PO DAILY 2. FUROSEMIDE 40MG PO DAILY 3. MIDODRINE 10MG PO TID The patient's discharge medication list was reviewed for discrepancies and discrepancies were resolved. Home Medications apixaban 5 mg tablet 5 mg PO BID #180 tab 12/17/19 Ezetimibe [Zetia] 10 mg PO DINNER 03/04/20 Digoxin [Digitek] 125 mcg PO DAILY #30 tab 03/13/20 Furosemide [Lasix] 40 mg PO DAILY #60 tab 03/13/20 Midodrine HCl [Proamatine] 10 mg PO TID #90 tab 03/13/20 The patient was counseled on the following discharge medications and changes in medications for homegoing were reviewed. The Reason for Use, instructions for use, and potential side effects were reviewed for all new medications. The patient's questions regarding all of their medications were answered. The patient was able to verbally demonstrate an understanding of their discharge medications. Patient was counseled by pharmacy analyst
--- NOTE | 2020-03-13 15:03 | CASEMGMT ---
Addendum entered by Richa Forrester 03/13/20 15:41: Pt is ready for discharge but this RN CM has still not heard back from [facility]. Pt aware that this RN CM will keep working on HHC and that someone will call her to do SOC. Pt states no preference for HHC agency if [facility] cannot take her. Pt voices no further questions/concerns/needs at this time. CM to follow. Tran HEREDIA CM Original Note: Call to [facility] and they states they are still reviewing referral at this time and will call this RN CM when decided. Per Paul HEREDIA, pt does not qualify for home oxygen at this time. CM to follow. Tran HEREDIA CM
[2020-03-14 08:39] LABS: pH, Body Fluid 11254 7.4 (Not Estab.)
--- NOTE | 2020-03-14 09:52 | CASEMGMT ---
Per Martha at [facility], they can accept pt at this time. D/C summary faxed to [facility] at this time. Tran HEREDIA CM
--- NOTE | 2020-03-14 13:16 | CASEMGMT ---
YAN ROTH Discharge Follow-up Phone Call: PILAR: Luisana Strata: 3 Call Date: 03/14/2020 Discharge Date: 03/13/20 Time of Call: 1310 Admitting Diagnosis: Afib RVR, Pleural effusion Discharge follow-up call placed to patient. Pt states she is tired and weak but otherwise has been doing well since returning home. Pt denies any difficulty breathing. Pt states she does not want to become dependent on oxygen. Education provided to patient on oxygen and why she needed it in the hospital and may in the future. Pt expressed understanding. Pt states she did get her medications and has been taking them as directed. States she started back on the Eliquis last evening. Discussed follow-up plan. Pt states they had cancelled her appointment with Dr. Maldonado for today and have one scheduled for 03/24. They have a follow-up appointment scheduled with Dr. See for 03/31 but state that he told them him office may call and move this appointment. Pt without any current appointments scheduled for a paracentesis but continues to have a prn order. No orders for repeat thoracentesis currently. Instructed pt to monitor breathing and if SOB increases to contact Dr. See or Dr. Maldonado. Informed pt and her Vineet of [facility] acceptance and that they should be receiving a call from them to schedule a visit with penitentiary and therapy services to be provided. They had not yet received a call. Pt denied any further questions or concerns. Donnell Vazquez RN CM
== END 2020-03-13 16:16 | disposition home or self-care (01) | DRG 315 ==
LOC: ED 11:35 → PCU 12:22 → ICU 12:57 → PCU 03-13 07:32 → ICU 03-13 14:21 → PCU 03-13 14:22
PROVIDERS: Internal Medicine Cardiovascular Disease; Admitting Provider Internal Medicine; Emergency Provider Emergency Medicine; PCP Family Medicine; Visit Provider Internal Medicine
DX: I95.89 Other hypotension (principal); J98.11 Atelectasis; J91.8 Pleural effusion in other conditions classified elsewhere; I48.92 Unspecified atrial flutter; I48.19 Other persistent atrial fibrillation; R18.8 Other ascites; I12.9 Hypertensive chronic kidney disease with stage 1 through stage 4 chronic kidney disease, or unspecified chronic kidney disease; K75.81 Nonalcoholic steatohepatitis (NASH); E11.22 Type 2 diabetes mellitus with diabetic chronic kidney disease; K74.60 Unspecified cirrhosis of liver; N18.30 Chronic kidney disease, stage 3 unspecified; D63.8 Anemia in other chronic diseases classified elsewhere; D69.6 Thrombocytopenia, unspecified; I44.7 Left bundle-branch block, unspecified; I49.3 Ventricular premature depolarization; E78.5 Hyperlipidemia, unspecified; Z79.01 Long term (current) use of anticoagulants; Z79.82 Long term (current) use of aspirin; Z79.899 Other long term (current) drug therapy
CPT/HCPCS: 32555; 36415; 71045; 71046; 76705; 80048; 80061; 80076; 80162; 82945; 83615; 83735; 83880; 83986; 84157; 84443; 84484; 85025; 87070; 87075; 87205; 88108; 88305; 88313; 89050; 93005; 93308; 97162; 97166; 97535; 97802; 97803; 99251; 99285; J7030; J7040; Q9957; A4216; G0463

== ENCOUNTER 2020-03-15 00:27 | Emergency (ER) | payer MEDICARE, SELFPAY ==
[2020-03-10 14:21] VITALS: BMI 22.1
[2020-03-15] VITALS (9 sets, daily range): BP systolic 95–128; BP diastolic 57–97; PULSE 104–150; RESP 12–41; TEMP 36; O2SAT 86–96; BMI 23.6
--- NOTE | 2020-03-15 00:34 | ED.RN ---
daphne phone number [phone] cell, [phone] home phone
--- NOTE | 2020-03-15 00:38 | RAD_ITS ---
STUDY: X-RAY CHEST REASON FOR EXAM: Female, 74 years old. Dyspnea. TECHNIQUE: Single AP portable view of the chest. COMPARISON: 03/13/2020. FINDINGS: There is subtotal opacification of the right lung field which is worsened from the previous study. There is leftward displacement of the heart and mediastinal structures. Findings are consistent with a large pleural effusion and overlying atelectasis or infiltration.. There is no visualized left pulmonary infiltrate or effusion, however, left lung base is largely obscured by the overlying laterally displaced heart. Normal size heart. Normal mediastinum and kamron. Normal visualized aortic arch and descending thoracic aorta. There are no demonstrated acute fractures or destructive bone lesions. There is no demonstrated abnormality of the visualized soft tissue structures of the upper abdomen. RAD/Chest 1 View (Portable) IMPRESSION: Large right pleural effusion with interval worsening from previous study and with associated subtotal collapse of the right lung. Electronically Signed: Robin Tony MD at 1:27 EST , Service support ,
--- NOTE | 2020-03-15 00:48 | EKG12_ITS ---
Test Reason : SOB Blood Pressure : / mmHG Vent. Rate : 150 BPM Atrial Rate : 078 BPM P-R Int : 000 ms QRS Dur : 114 ms QT Int : 338 ms P-R-T Axes : 000 -34 132 degrees QTc Int : 534 ms Atrial fibrillation with left bundle branch block Left axis deviation Low voltage QRS Inferior infarct , age undetermined Cannot rule out Anteroseptal infarct , age undetermined ST & T wave abnormality, consider lateral ischemia Abnormal ECG Confirmed by HERMILO WHITE, NIKITA ([id number]), technical editor MONICA FARMER ([id number]) on 03/19/2020 6:45:13 AM Referred By: RICK Confirmed By:NIKITA AKHTAR MD
[2020-03-15 01:02] LABS: Absolute Lymphocyte Count 2.08 X10^3/uL (0.83-4.51); Absolute Neutrophil Count 6.5 X10^3/uL (2.0-7.7); Basophil# 0.06 X10^3/uL; Basophil% 0.6 % (0-1); Eosinophil# 0.21 X10^3/uL; Eosinophils% 2.2 % (0-5); Hematocrit 37.6 % (37-47); Lymphocyte # 2.08 X10^3/ul (4.0); Lymphocyte % 21.4 % (19-41); Mean Corp Hgb Conc 31.9 g/dL (32-36); Mean Corpuscular Hgb 32.2 pg (27.0-32.0); Mean Corpuscular Volume 100.8 fL (81-99); Mean Platelet Vol. 10.5 fl (6.2-12.0); Monocyte# 0.86 X10^3/uL; Monocyte% 8.9 % (0-10); NRBC Flagged by Analyzer 0 % (0-5); Neutrophil # 6.46 X10^3/uL (2.7-7.7); Neutrophil % 66.6 % (47-70); Platelet Count 202 K/mm3 (150-450); RBC Distribution Width SD 58.3 fl (35.1-43.9); Red Blood Count 3.73 M/mm3 (4.2-5.4); White Blood Count 9.7 K/mm3 (4.4-11.0)
[2020-03-15 01:06] LABS: International Normalized Ratio 1.7; Prothrombin Time (Protime)PT. 19.4 SECONDS (11.7-14.9)
[2020-03-15 01:07] LABS: Partial Thromboplast Time 27.5 Seconds (24.1-36.2)
[2020-03-15 01:15] LABS: ALB/GLOB Ratio 0.6 RATIO (0.9-2.4); AST(SGOT) 99 U/L (15-37); Alanine Aminotransfer ALT/SGPT 86 U/L (13-56); Albumin, Serum 2.8 g/dL (3.2-5.0); Alkaline Phosphatase 335 U/L (45-117); Anion Gap 7 (5-15); BUN 40 mg/dL (7-18); Calcium,Total 8.7 mg/dL (8.5-10.1); Chloride 109 mmol/L (98-107); Creatinine, Serum 1.38 mg/dL (0.55-1.02); EST Glomerular Filtration Rate 40 mL/min (>60); Est Glom Filt Rate - Afr Amer 48 mL/min (>60); Estimated Creatinine Clearance 31.82 ml/min; Globulin 4.7 g/dL (2.2-4.2); Glucose 181 mg/dL (74-106); Potassium 4.5 mmol/L (3.5-5.1); Protein, Total 7.5 g/dL (6.4-8.2); Sodium Level 137 mmol/L (136-145)
[2020-03-15 01:19] LABS: Lactic Acid 3.5 mmol/L (0.4-1.9)
--- NOTE | 2020-03-15 02:52 | ED.DCSUM_ITS ---
- ER Visit Summary Date of Service: 03/15/20 Chief Complaint: Shortness of breath History of Present Illness: The patient is a 74 F with a history of OSULLIVAN cirrhosis, A. fib with RVR, diabetes type 2, hypertension, hyperlipidemia, CKD stage III. According to my discussion with her and her record, she is DNR Comfort Care arrest with no intubation. She was admitted at this facility on March 10 for atrial fibrillation with RVR and hypertension. There was concern by her family at that time that she needed a paracentesis. She was not found to have any significant ascites, but rather had a large right-sided pleural effusion. Her Eliquis was held. She underwent thoracentesis on March 12. 4.5 L were drained. She was doing well. She was informed that she would likely need a Pleurx catheter, and that this fluid would reaccumulate. Patient refused the catheter, as she did not want to be transferred to another facility. She was subsequently discharged on March 13. On March 14, she resumed her Eliquis, however she started to have increasing shortness of breath. She denies fever, chest pain, or any other symptoms. EMS brought her to the ED. They found her oxygen was 78% on room air at home, and she is in the high 80s on a nonrebreather upon arrival. Physical Examination: Afebrile. Heart rate 124, respiratory rate 34, 88% on nonrebreather. Lung sounds are diminished on the right. Heart is irregularly irregular. Abdomen soft. Patient is alert and oriented. Test Results: EKG showed atrial fibrillation at a rate of 134 with nonspecific repolarization changes. She has a history of a left bundle branch block pattern. CBC normal. BUN 40, creatinine 1.38, glucose 181. Total bilirubin 1.2, alkaline phosphatase 335, ALT 86, AST 99, INR 1.7, PTT 27.5. Troponin 0.05. Lactate 3.5. COVID-19 negative. Chest x-ray shows a large right pleural effusion. This was interpreted by me and the radiologist. Emergency Department Course and Treatment: Patient initially presents with hypoxic respiratory failure. I reviewed in her documentation that she is DNR Comfort Care arrest. She does not want intubated. I discussed this with her right away. She had diminished lung sounds on the right. She was started on a high flow nasal cannula, and she remained fairly stable with oxygen saturations in the upper 80s and low 90s. Portable x-ray was done and showed a right-sided pleural effusion. No evidence of pneumothorax or other complication. She was placed on BiPAP. Repeat oxygens were in the mid 90s, as high as 94. Troponin was indeterminate. Lactate was 3.5. CBC, CMP fairly stable. EKG was difficult to interpret, but did not show anything acute. Covid was negative. I spoke with Dr. Kyle our crane operator. He advised that the patient will either need a Pleurx catheter or if not, she can go palliative and hospice can be consulted. We do not have the ability to place a Pleurx catheter at this facility in a timely manner, ie not until next week, and so he is requesting transfer. Patient was initially refusing transfer. I advised her that we can discuss draining the fluid, but it will likely reaccumulate. She continued to refuse transfer. I told her that I could contact the hospitalist for admission for palliative and hospice purposes. She told me that she wanted to think about it and could not give me an answer. I asked if I could speak to her , and she agreed. I spoke with him on the phone, and he came down to the ED. After they spoke, she was agreeable to transfer. We tried several local facilities including [facility], [facility], [facility], [facility], and they were all full. [facility] did have a bed available. I spoke with Dr. Marcial who accepted the patient. At the time of this dictation, the patient is stable on BiPAP. Oxygen saturation 94%. Heart rate around 110, irregular. Blood pressure currently 121/97. Patient appears to be objectively breathing more comfortably. Awaiting transfer by ground. Treatment Plan: As above Disposition: Transfer Impression: Right pleural effusion, hypoxia, OSULLIVAN cirrhosis, atrial fibrillation This note was generated with Watchsend[employer] software. It may contain incorrect words, spelling, and punctuation that were not noted in review of the chart prior to signing ED Disposition - Plan for ED Patient: Referrals: Po Maldonado MD [Primary Care Provider] -
[2020-03-15 04:56] LABS: Reflex Lactate? Y
--- NOTE | 2020-03-19 15:30 | CASEMGMT ---
YAN ROTH Care Coordination f/u: Pt was in [facility] ED 03/15 w/ SOB and transferred to [facility] for treatment of pleural effusion and Pleurx Cath placement. See ED notes 03/15 for further information. Call placed to pt's , Saad, to inquire how pt is doing. He states pt is still @ [facility] in the ICU. He states they placed a Pleurx Catheter on Tuesday and that they drained another liter off of her this morning. He states pt is doing much better, her breathing is better, and she was up walking around for the first time today. He is not sure when they anticipate discharge home yet. Saad states pt has been going in and out of [facility], but states this is not new for pt. HHC: Pt was set up with [facility]. Saad states they have been in contact with him, they are aware pt is still @ [facility], and they plan to f/u with pt when she discharges home for continuation of care. Saad states CM @ [facility] is working on getting the appropriate supplies for the Pleurx cath for pt. Palliative Care: A referral to Palliative care was made during pt's last admission to [facility]. Katy from Palliative care contacted Saad this morning, is aware pt is @ [facility], and plan to contact pt/ next Tuesday for f/u. Appts: Pt had an appt scheduled with Dr Maldonado for 03/24. Saad asked for YAN ROTH to cancel this and he will call to re-schedule this once he has a better idea of when pt will be discharged. YAN ROTH placed call to Dr Maldonado's office and appt was cancelled. YAN ROTH also spoke with Dr Maldonado's nurse and she was given an update on pt. She was made aware pt's says he will call to re-schedule another appt. Pt has appts with Dr See and Dr Cuevas on 03/31. Saad is not sure what to do about these appts. YAN ROTH advised to keep these appt's scheduled at this time and he was agreeable. Saad does not have any further questions/concerns/needs at this time. He was made aware to contact YAN ROTH care coordinators if any issues arise. He voices appreciation. Lonny SRINIVASAN RN CM
--- NOTE | 2020-03-25 12:05 | CASEMGMT ---
subway guard: Call received from pt's spouse Saad on this date. He states that the patient returned home from [facility] this past with [facility] retirement services. He has been taught how to drain pt's pleural fluid via the pleurx catheter. He states they are draining 1L of fluid out daily. He expressed concerns about feeling overwhelmed with the day to day care of his in addition to managing appointments and household duties. Discussed follow-up with Dr. Maldonado (per telephone yesterday), Dr. Cuevas (tomorr, Tue, 03/26), and Dr. See (Tuesday, 03/28). States he has been in contact with Palliative care and thinks he is to receive a visit on from someone but he is not sure who. States he has not received the needed canisters and that he has not been able to find out where they are in the shipping process. Pt's provided permission to this RN CM to contact these providers to coordinate care. Pt has deferred to her during past discussions. Follow-up: This RN CM spoke with Miryam at [facility]. Miryam states that pt has received a retirement visit Tuesday, Tuesday, Tuesday and Tuesday (everyday since DC home) and will be seen again on . Miryam states the home nurses have reported that the is very capable of using the pleurx catheter. The canisters were to be delivered yesterday but they did not arrive and are to arrive today. [facility] does not have home health aides available to assist pt at this time. This RN CM contacted Dr. Maldonado's office to discuss prognosis to determine appropriate level of service available to pt. Patti states she will check with Dr. Maldonado and call this RN CM back. This RN CM contacted [facility]. Call returned by Leonarda who states she has an appointment on afternoon to visit pt but pt's was unsure if he could keep this appointment. Leonarda states she will call them morning to verify availability. Informed Leonarda that [facility] visit was also planned for . Discussed current plan of care. Leonarda states she will reach out to Dr. Maldonado to determine prognosis and discuss goals of care with pt/pt's to determine if palliative or hospice are most appropriate and/or desired by pt/pt's and follow-up as appropriate. Return call placed to pt's who states the canisters have since arrived. Informed him that [facility] does not have any available home health aides at this time. List of private duty home health aides emailed to [email or web address]. Explained to pt's that he would need to make these arrangements on his own due to them being private pay. Also informed him that Leonarda with Palliative Care is the one who will be visiting him on . Encouraged him to keep this appointment. Asked if pt will be able to get in and out of the car to attend the appointments on Tuesday and Tuesday. Pt's states his daughter is coming to help him both days and will be attending the appointments also if they allow. Pt's asked patient if there were any additional needs and she denied further needs. Pt's also denied further questions or needs. Donnell Vazquez RN CM
== END 2020-03-15 05:05 | disposition short-term general hospital (02) ==
PROVIDERS: Emergency Provider Emergency Medicine; PCP Family Medicine
DX: J90 Pleural effusion, not elsewhere classified (principal); R09.02 Hypoxemia; K75.81 Nonalcoholic steatohepatitis (NASH); I48.91 Unspecified atrial fibrillation; I44.7 Left bundle-branch block, unspecified; I12.9 Hypertensive chronic kidney disease with stage 1 through stage 4 chronic kidney disease, or unspecified chronic kidney disease; E11.22 Type 2 diabetes mellitus with diabetic chronic kidney disease; N18.30 Chronic kidney disease, stage 3 unspecified; K74.60 Unspecified cirrhosis of liver; E78.5 Hyperlipidemia, unspecified; E78.00 Pure hypercholesterolemia, unspecified; Z66 Do not resuscitate; Z79.01 Long term (current) use of anticoagulants; Z79.899 Other long term (current) drug therapy
CPT/HCPCS: 71045; 80053; 83605; 84484; 85025; 85610; 85730; 87040; 87426; 93005; 94002; 96360; 99285; J7040; A4216